=== PATIENT | male | born 1925 ===

== ENCOUNTER 2016-06-22 19:25 | Observation (INO) | payer MEDICARE, MEDICAID ==
[2016-06-22 19:25] VITALS: BMI 36.6
[2016-06-22] MEDS ORDERED: Nitroglycerin 2% 1GM UD TOP STA (19:48)
[2016-06-22] MEDS ORDERED: Nitroglycerin 2% 1GM UD ONE (20:03)
[2016-06-22 20:26] LABS: BASO % 0.6 % (0.0-2.0); EOS # 0.1 K/uL (0.0-0.7); EOS % 1.7 % (0.0-4.0); HEMATOCRIT 34.7 % (35.0-51.0); LYMPH # 1.5 K/uL (1.0-4.3); LYMPH % 17.8 % (20.0-40.0); MEAN CELL VOLUME 88.9 fl (80.0-94.0); MEAN CORPUSCULAR HEMOGLOBIN 29.2 pg (27.0-31.0); MEAN CORPUSCULAR HGB CONC 32.8 g/dL (33.0-37.0); MEAN PLATELET VOLUME 8.3 fl (7.2-11.7); MONO # 0.6 K/uL (0.0-0.8); MONO % 7.3 % (0.0-10.0); NEUT # 5.9 K/uL (1.8-7.0); NEUT % 72.6 % (50.0-75.0); RED CELL DISTRIBUTION WIDTH 16.5 % (11.5-14.5); WHITE BLOOD COUNT 8.2 K/uL (4.8-10.8)
[2016-06-22 20:39] LABS: ALB/GLOB RATIO 1.2 (1.0-2.1); ALKALINE PHOSPHATASE 113 U/L (38-126); ALT/SGPT 35 U/L (21-72); AST/SGOT 41 U/L (17-59); BILIRUBIN,TOTAL 0.3 mg/dl (0.2-1.3); BLOOD UREA NITROGEN 20 mg/dl (9-20); CALCIUM 8.9 mg/dL (8.4-10.2); CARBON DIOXIDE 25 mmol/L (22-30); CHLORIDE 103 mmol/L (98-107); GFR AFRICAN-AMERICAN > 60; GLUCOSE,RANDOM 241 mg/dL (75-110); POTASSIUM 3.9 MMOL/L (3.6-5.0); SODIUM 135 mmol/l (132-148); TOTAL PROTEIN 6.4 G/DL (6.3-8.2)
--- NOTE | 2016-06-22 21:16 | ED PDOC ---
HPI: Chest Pain Time Seen by Provider: 06/22/16 19:38 Chief Complaint (Nursing): Chest Pain Chief Complaint (Provider): Chest Pain History Per: Patient History/Exam Limitations: no limitations Onset/Duration Of Symptoms: Hrs (since earlier today) Current Symptoms Are (Timing): Still Present Severity: Moderate Associated Symptoms: Dyspnea (mild). denies: Nausea, Diaphoresis, Other (no fever, vomiting, palpitations, cough) Modifying Factors: None Additional Complaint(s): Kodi Melgar is an 89 year old male, with a past medical history inclusive of CAD (s/p MD and CABG x4 in 1993), atrial fibrillation, CHF, HTN, hypercholesterolemia, dyslipidemia, peripheral edema, pancreatitis, DVT and type II diabetes, who presents to the ED on 06/22/16, via EMS, for the evaluation of chest pain that he has experienced since earlier today. Associated mild shortness of breath also reported, though he denies any fever, palpitations, cough, nausea, vomiting or diaphoresis. Has medicated with Motrin , which he usually takes for chest pain as advised by his PMD, without relief. Of note, patient is well known to both this ED and this provider for multiple previous visits for similar complaints. PMD: Amado Davis Past Medical History Reviewed: Historical Data, Nursing Documentation, Vital Signs Vital Signs: Last Vital Signs Temp 98.1 F 06/22/16 19:28 Pulse 89 06/22/16 20:08 Resp 16 06/22/16 20:08 BP 128/62 06/22/16 20:08 Pulse Ox 100 06/23/16 00:50 - Medical History PMH: Anemia, Arthritis, Atrial Fibrillation, CAD, Cardia Arrhythmia, CHF, COPD, Dementia, Diabetes (type II ), Diverticulitis, Deep Vein Thrombosis, Gastritis, Gall Bladder Disease, HTN, Hypercholesterolemia, Hyperlipidemia, Hypothyroidism , Pancreatitis, Peripheral Edema, Pulmonary Embolism Denies: HIV, Chronic Kidney Disease, Rheumatoid Arthritis Other PMH: macular degeneration - Surgical History Surgical History: CABG (quadruple CABG in 1993) Other surgeries: angioplasty - Family History Family History: States: No Known Family Hx - Living Arrangements Living Arrangements: With Family (son) - Social History Current smoker - smoking cessation education provided: Yes (1-2 cigars/day) Alcohol: None Drugs: Denies - Home Medications Home Medications: Ambulatory Orders Medication Instructions Recorded Allopurinol 300 mg PO DAILY 01/09/15 Carvedilol [Coreg] 3.125 mg PO Q12H 12/09/15 Levothyroxine [Synthroid] 50 mcg PO DAILY #0 tab 12/09/15 Tamsulosin [Flomax] 0.4 mg PO BID #0 cap 12/09/15 Clopidogrel [Plavix] 75 mg PO DAILY 01/24/16 Dabigatran [Pradaxa] 150 mg PO BID 01/24/16 Dutasteride [Avodart] 0.5 mg PO DAILY 01/24/16 Losartan [Cozaar] 50 mg PO DAILY 01/24/16 Isosorbide Mononitrate [Imdur] 120 mg PO DAILY #0 tab 03/12/16 Linagliptin [Tradjenta] 5 mg PO DAILY #1 tab 03/20/16 Furosemide [Lasix] 40 mg PO DAILY tab 03/28/16 traMADol [Ultram] 50 mg PO Q4 PRN #40 tab 04/11/16 Albuterol Sulfate [Proair Hfa] 2 puff IH Q12H PRN 05/10/16 Omeprazole 40 mg PO DAILY 05/10/16 Simvastatin [Zocor] 40 mg PO HS 05/10/16 Tiotropium [Spiriva] 18 mcg IH DAILY 05/10/16 - Allergies Allergies/Adverse Reactions: Allergies Allergy/AdvReac Type Severity Reaction Status Date / Time No Known Allergies Allergy Verified 05/10/16 10:31 Review of Systems ROS Statement: Except As Marked, All Systems Reviewed And Found Negative Constitutional: Negative for: Fever, Sweats Cardiovascular: Positive for: Chest Pain. Negative for: Palpitations Respiratory: Positive for: Shortness of Breath. Negative for: Cough Gastrointestinal: Negative for: Nausea, Vomiting Physical Exam - Reviewed Nursing Documentation Reviewed: Yes Vital Signs Reviewed: Yes - Physical Exam Appears: Positive for: Non-toxic, No Acute Distress (laughing/joking) Head Exam: Positive for: ATRAUMATIC, NORMOCEPHALIC Skin: Positive for: Normal Color, Warm, Dry Eye Exam: Positive for: Normal appearance, PERRL ENT: Positive for: Normal ENT Inspection Neck: Positive for: Normal, Painless ROM, Supple Cardiovascular/Chest: Positive for: Regular Rate, Rhythm. Negative for: Edema, Murmur Respiratory: Positive for: Normal Breath Sounds. Negative for: Respiratory Distress Back: Positive for: Normal Inspection Extremity: Positive for: Normal ROM Neurologic/Psych: Positive for: Alert, Oriented - Laboratory Results Result Diagrams: 06/22/16 20:18 06/22/16 20:18 - ECG O2 Sat by Pulse Oximetry: 100 (RA) Pulse Ox Interpretation: Normal Medical Decision Making Medical Decision Makin:38 Initial Impression: 89 year old male with chest pain in setting of known CAD/A- Fib/HTN Initial plan: * EKG * CXR * Labs * BNP * Troponin I * PTT * PT * Accucheck * Aspirin 324mg pO * Nitro 1in TOP * Reevaluation 21:25 CXR shows no acute disease. Labs reviewed with no clinically significant abnormalities. Discussed case with Dr. Renner (Hospitalist), patient will be hospitalized overnight under his service within [facility] for chest pain observation. Plan has been discussed with patient, who is in agreement. Condition fair. Clinical Impression: chest pain Scribe Attestation: Documented by Cande Bagley, acting as a scribe for Irineo Hdez MD. Provider Scribe Attestation: All medical record entries made by the Scribe were at my direction and personally dictated by me. I have reviewed the chart and agree that the record accurately reflects my personal performance of the history, physical exam, medical decision making, and the department course for this patient. I have also personally directed, reviewed, and agree with the discharge instructions and disposition. Disposition - Clinical Impression Clinical Impression: Chest pain - Patient ED Disposition Is Patient to be Admitted: Yes - Disposition Disposition Time: 21:25 Condition: FAIR - Pt Status Changed To: Hospital Disposition Of: Observation - POA Present On Arrival: None
[2016-06-22] MEDS ORDERED: Albuterol HFA 90 mcg/actuation (8 g) INH PRN (22:11)
--- NOTE | 2016-06-22 22:17 | CP.PCM.HP ---
History of Present Illness - History of Present Illness History of Present Illness: 10 yr old M with PMhx of Chronic A-fib, Ischemic Cardiomyopathy, CAD s/p CABG 1993, DM II, CHF with EF=25-30% (echo 11/30/15), COPD, Pancreatitis, DVT/PE, Diverticulosis and Cholelithiasis with Chronic Cholecystitis, ERCP with stent placement and Hypothyroidism who presented to the ER earlier this evening with recurrent L sided mid sternal CP without radiation. He does have SOB, but appears to be at baseline. Denies cough/f/c/n/v/d. PCP: Dr. Yi Grid Trimmer: Jonatan Cooper MHx: Chronic A-fib, CAD s/p CABG 1993, DM II, Ischemic Cardiomyopathy/CHF with EF=25-30% (echo 11/30/15), COPD, DVT/PE, diverticulosis and hypothyroidism SHx: CABG 1993, Cholecystostomy s/p removal 02/13/16, ERCP with stent placement Allergies: NKDA Medications: As per med rec Family Hx: Reviewed, patient does not provide any relevant history Social Hx: Lives with family, no EtOH, no current tobacco Surrogate: , contact info in chart Present on Admission - Present on Admission Any Indicators Present on Admission: No Past Patient History - Infectious Disease Hx of Infectious Diseases: None - Tetanus Immunizations Tetanus Immunization: Unknown - Past Medical History & Family History Past Medical History?: Yes - Past Social History Alcohol: None Drugs: Denies - CARDIAC Hx Atrial Fibrillation: Yes Hx Cardia Arrhythmia: Yes Hx Congestive Heart Failure: Yes Hx Hypercholesterolemia: Yes Hx Hypertension: Yes Hx Peripheral Edema: Yes - PULMONARY Hx Chronic Obstructive Pulmonary Disease (COPD): Yes Hx Pulmonary Embolism: Yes - NEUROLOGICAL Hx Dementia: Yes - HEENT Hx HEENT Problems: Yes Hx Cataracts: Yes Other/Comment: hard of hearing - RENAL Hx Chronic Kidney Disease: No - ENDOCRINE/METABOLIC Hx Hypothyroidism: Yes - HEMATOLOGICAL/ONCOLOGICAL Hx Anemia: Yes Hx Human Immunodeficiency Virus (HIV): No - INTEGUMENTARY Hx Dermatological Problems: No - MUSCULOSKELETAL/RHEUMATOLOGICAL Hx Arthritis: Yes Hx Rheumatoid Arthritis: No - GASTROINTESTINAL Hx Diverticulitis: Yes Hx Gall Bladder Disease: Yes Hx Gastritis: Yes Hx Pancreatitis: Yes - GENITOURINARY/GYNECOLOGICAL Hx Genitourinary Disorders: Yes Hx Prostate Problems: Yes Other/Comment: BPH - PSYCHIATRIC Hx Substance Use: No - SURGICAL HISTORY Hx Coronary Artery Bypass Graft: Yes (quadruple CABG in 1993) - ANESTHESIA Hx Anesthesia: Yes Hx Anesthesia Reactions: No Hx Malignant Hyperthermia: No Meds Allergies/Adverse Reactions: Allergies Allergy/AdvReac Type Severity Reaction Status Date / Time No Known Allergies Allergy Verified 05/10/16 10:31 Physical Exam - Constitutional Appears: No Acute Distress, Chronically Ill - Head Exam Head Exam: ATRAUMATIC, NORMOCEPHALIC - Eye Exam Eye Exam: EOMI, PERRL - ENT Exam ENT Exam: Mucous Membranes Moist - Neck Exam Neck exam: Positive for: Full Rom Additional comments: No jvd noted - Respiratory Exam Respiratory Exam: Rhonchi, NORMAL BREATHING PATTERN - Cardiovascular Exam Cardiovascular Exam: REGULAR RHYTHM, +S1, +S2 Results - Vital Signs Recent Vital Signs: Last Vital Signs Temp 98.1 F 06/22/16 19:28 Pulse 98 H 06/22/16 19:28 Resp 16 06/22/16 19:28 BP 133/79 06/22/16 19:28 Pulse Ox 100 06/22/16 21:58 - Labs Result Diagrams: 06/22/16 20:18 06/22/16 20:18 - EKG Data EKG Interpreted by: Myself Rate: Normal - EKG Data EKG comments: RBBB, ?LAFB Assessment & Plan (1) Acute chest pain Assessment and Plan: 89 y/o male with multiple chronic conditions who comes in with CP. 1) Chest pain/CHF/A fib -Admit to tele -Serial trops -AM EKG -Cont ASA, Plavix, and Pradaxa -Continue LA nitro -Cardiology consult in AM 2) DM2 -- cont PO hypoglycemic, accucheck/SSI, DM2 diet 3) COPD -- cont spiriva, prn Albuterol 4) DVT PPx -- on pradaxa Status: Acute (2) DVT prophylaxis Status: Acute (3) Afib Status: Chronic (4) Chronic systolic CHF (congestive heart failure) Status: Chronic (5) COPD (chronic obstructive pulmonary disease) Status: Acute (6) DM2 (diabetes mellitus, type 2) Status: Chronic
[2016-06-23 06:40] LABS: BLOOD UREA NITROGEN 18 mg/dl (9-20); CALCIUM 9.2 mg/dL (8.4-10.2); CARBON DIOXIDE 21 mmol/L (22-30); CHLORIDE 106 mmol/L (98-107); GFR AFRICAN-AMERICAN > 60; GLUCOSE,RANDOM 111 mg/dL (75-110); POTASSIUM 3.9 MMOL/L (3.6-5.0); SODIUM 134 mmol/l (132-148)
[2016-06-23] MEDS: Insulin Lispro (humaLOG) 100 Units/ml Inj SC SCH ×3 (07:28→16:37)
[2016-06-23] MEDS ORDERED: Pantoprazole 40 mg EC Tab PO SCH (09:00)
[2016-06-23] MEDS ORDERED: Levothyroxine 50 MCG TAB PO SCH (09:00)
[2016-06-23] MEDS ORDERED: Tiotropium 18 mcg Cap For Inhalation IH SCH (09:00)
--- NOTE | 2016-06-23 10:40 | RAD ---
HISTORY: chest pain COMPARISON: 05/10/2016 FINDINGS: LUNGS: No focal infiltrate. PLEURA: No significant pleural effusion identified, no pneumothorax apparent. CARDIOVASCULAR: Heart is unchanged in size and mildly enlarged. There is stable appearance of the aorta. OSSEOUS STRUCTURES: There is evidence of prior median sternotomy. No rib fracture is seen. VISUALIZED UPPER ABDOMEN: Normal. OTHER FINDINGS: None. IMPRESSION: No active disease.
[2016-06-23 15:30] VITALS: TEMP 97.5
--- NOTE | 2016-06-23 16:16 | CP.PCM.DIS ---
Provider - Provider Date of Admission: 06/22/16 21:25 Attending physician: Bravo Renner MD Primary care physician: Dr Davis Time Spent in preparation of Discharge (in minutes): 30 Diagnosis - Discharge Diagnosis (1) Chest pain Status: Acute (2) Chronic systolic CHF (congestive heart failure) Status: Chronic (3) COPD (chronic obstructive pulmonary disease) Status: Chronic (4) Enlarged prostate Status: Chronic (5) Ischemic dilated cardiomyopathy Status: Chronic Priority: Medium (6) CAD (coronary artery disease) Status: Chronic (7) Chronic atrial fibrillation Status: Chronic (8) DM2 (diabetes mellitus, type 2) Status: Chronic (9) Gallbladder disease Status: Chronic (10) Hypothyroidism Status: Chronic Hospital Course - Lab Results Lab Results: Most Recent Lab Values WBC 8.2 K/uL (4.8-10.8) 06/22/16 20:18 RBC 3.91 Mil/uL (4.40-5.90) L 06/22/16 20:18 Hgb 11.4 g/dL (12.0-18.0) L 06/22/16 20:18 Hct 34.7 % (35.0-51.0) L 06/22/16 20:18 MCV 88.9 fl (80.0-94.0) 06/22/16 20:18 MCH 29.2 pg (27.0-31.0) 06/22/16 20:18 MCHC 32.8 g/dL (33.0-37.0) L 06/22/16 20:18 RDW 16.5 % (11.5-14.5) H 06/22/16 20:18 Plt Count 181 K/uL (130-400) 06/22/16 20:18 MPV 8.3 fl (7.2-11.7) 06/22/16 20:18 Neut % (Auto) 72.6 % (50.0-75.0) 06/22/16 20:18 Lymph % (Auto) 17.8 % (20.0-40.0) L 06/22/16 20:18 [place] % (Auto) 7.3 % (0.0-10.0) 06/22/16 20:18 Eos % (Auto) 1.7 % (0.0-4.0) 06/22/16 20:18 Baso % (Auto) 0.6 % (0.0-2.0) 06/22/16 20:18 Neut # 5.9 K/uL (1.8-7.0) 06/22/16 20:18 Lymph # 1.5 K/uL (1.0-4.3) 06/22/16 20:18 [place] # 0.6 K/uL (0.0-0.8) 06/22/16 20:18 Eos # 0.1 K/uL (0.0-0.7) 06/22/16 20:18 Baso # 0.0 K/uL (0.0-0.2) 06/22/16 20:18 PT 10.8 SECONDS (9.6-11.2) 06/22/16 20:18 INR 1.04 (0.92-1.08) 06/22/16 20:18 APTT 29.0 SECONDS (23.3-32.5) 06/22/16 20:18 Sodium 134 mmol/l (132-148) 06/23/16 06:21 Potassium 3.9 MMOL/L (3.6-5.0) 06/23/16 06:21 Chloride 106 mmol/L (98-107) 06/23/16 06:21 Carbon Dioxide 21 mmol/L (22-30) L 06/23/16 06:21 Anion Gap 11 (10-20) 06/23/16 06:21 BUN 18 mg/dl (9-20) 06/23/16 06:21 Creatinine 1.0 mg/dL (0.8-1.5) 06/23/16 06:21 Est GFR ( Amer) > 60 06/23/16 06:21 Est GFR (Non-Af Amer) > 60 06/23/16 06:21 POC Glucose (mg/dL) 148 mg/dL (65-110) H 06/23/16 12:05 Random Glucose 111 mg/dL (75-110) H 06/23/16 06:21 Calcium 9.2 mg/dL (8.4-10.2) 06/23/16 06:21 Total Bilirubin 0.3 mg/dl (0.2-1.3) 06/22/16 20:18 AST 41 U/L (17-59) 06/22/16 20:18 ALT 35 U/L (21-72) 06/22/16 20:18 Alkaline Phosphatase 113 U/L (38-126) 06/22/16 20:18 Troponin I 0.0380 ng/mL (0.00-0.120) 06/23/16 06:02 NT-Pro-B Natriuret Pep 409 pg/ml (0-900) 06/22/16 20:18 Total Protein 6.4 G/DL (6.3-8.2) 06/22/16 20:18 Albumin 3.4 g/dL (3.5-5.0) L 06/22/16 20:18 Globulin 2.9 gm/dL (2.2-3.9) 06/22/16 20:18 Albumin/Globulin Ratio 1.2 (1.0-2.1) 06/22/16 20:18 - Hospital Course Hospital Course: 89 y/o gent with hx of CAD s/p CABG, Ischemic Cardiomyopathy, Chronic A fib, HTN , DM, BPH and Chronic Cholecystitis came in because of substernal chest pain. Pt was observed in Telemetry. started on ASA, his home meds- BB, statin, ARB were continued. Pradaxa likewise continued. Ther was no acute EKG change. Troponin x 3 negative. Pt's Ceramic Design Engineer- Dr aDvis recommended d/c home and to ff up with him in the office for further cardiac work up luis daniel. 1. Chest Pain, ACS ruled out , further work up needed as outpatient no EKG change Troponin x 3 negative ASA, BB, ARB, statin started 2. Atrial Fibrillation, chronic , rate controlled Continue Pradaxa as anticoagulant cont Coreg 3. COPD , chronic continue Albuterol / Atrovent nebs prn, Spiriva CXR with no infiltrate 4. History of CAD s/p CABG Continue lipitor, Plavix cont BB, ARB, statin 5. Chronic CHF, systolic dysfunction, compensated Continue Coreg/ Lasix/ Imdur and ARB 6. DM II controlled accucheck with coverage Diabetic Diet cont Tradjenta 7. Hypothyroidism -on Synthroid Discharge Exam - Head Exam Head Exam: ATRAUMATIC, NORMAL INSPECTION, NORMOCEPHALIC - Eye Exam Eye Exam: EOMI, Normal appearance Pupil Exam: NORMAL ACCOMODATION - ENT Exam ENT Exam: Mucous Membranes Moist, Normal External Ear Exam - Neck Exam Neck exam: Full Rom - Respiratory Exam Respiratory Exam: NORMAL BREATHING PATTERN. absent: Respiratory Distress - Cardiovascular Exam Cardiovascular Exam: Irregular Rhythm, +S1, +S2 - GI/Abdominal Exam GI & Abdominal Exam: Normal Bowel Sounds, Soft. absent: Tenderness - Extremities Exam Extremities exam: normal capillary refill, pedal pulses present Additional comments: no pedal edema no calf tenderness - Back Exam Back exam: FULL ROM. absent: CVA tenderness (L), CVA tenderness (R) - Neurological Exam Neurological exam: Alert, CN II-XII Intact, Oriented x3, Reflexes Normal - Psychiatric Exam Psychiatric exam: Normal Affect, Normal Mood - Skin Skin Exam: Dry, Normal Color, Warm Discharge Plan - Discharge Medications Prescriptions: Dutasteride [Avodart] 0.5 mg PO DAILY #30 capsule - Follow Up Plan Condition: GOOD Disposition: HOME/ ROUTINE Additional Instructions: ff up with Dr Ryan cary for further cardiac work up Referrals: Jonatan Davis MD [Family Provider] - Clinical Quality Measures - CQM - Heart Failure Ejection Fraction: Less Than 40 % Left Ventricular Function to be assessed after discharge: Yes LINDSEY Inhibitor Prescribed: No Contraindication/Reason for not providing: Pt is on ARB Beta-Viktoriya Prescribed: Carvedilol Angiotensin II Receptor Viktoriya Prescribed: Yes AnticoagulationTherapy for Atrial Fibrillation/Atrialflutter: Yes Aldosterone Antagonist Prescribed: No Contraindication/Reason for not providing: low normal BP Hydralazine Nitrate Prescribed: No Contraindication/Reason for not providing: low normal BP Implantable Cardioverter Defibrillator Therapy: Yes Contraindication/Reason for not providing: rec ff up with Cardio for eval Cardiac Resynchronization Therapy Prescribed: No Contraindication/Reason for not providing: further cardiac work up asa outpt Will be discharged to: Home Follow Up Date (must be within 7 days from discharge): 06/25/16 Follow Up Time: 09:00 - Date & Time of Discharge Summary Date of Discharge Summary: 06/23/16
[2016-06-23 16:50] VITALS: BP 143/74; PULSE 73; RESP 18; O2SAT 100
--- NOTE | 2016-06-25 10:04 | CARD ---
APPROVED REPORT EKG Measurement Heart [id number] [place] [id number] <Conclusion> Sinus rhythm with premature atrial complexes with aberrant conduction Right bundle branch block Left anterior fascicular block Bifascicular block Abnormal ECG
== END 2016-06-23 18:18 | disposition home or self-care (01) ==
LOC: H.ER 19:25 → H.ERHOLD 21:25 → H.TEL 06-23 01:14
PROVIDERS: ADMIT Internal Medicine; ATTEND Internal Medicine
DX: R07.89 Other chest pain (principal); E03.9 Hypothyroidism, unspecified; E78.00 Pure hypercholesterolemia, unspecified; E78.5 Hyperlipidemia, unspecified; F03.90 Unspecified dementia, unspecified severity, without behavioral disturbance, psychotic disturbance, mood disturbance, and anxiety; F17.200 Nicotine dependence, unspecified, uncomplicated; H35.30 Unspecified macular degeneration; I11.0 Hypertensive heart disease with heart failure; I50.22 Chronic systolic (congestive) heart failure; I25.10 Atherosclerotic heart disease of native coronary artery without angina pectoris; I25.2 Old myocardial infarction; I25.5 Ischemic cardiomyopathy; I48.2 Chronic atrial fibrillation; J44.9 Chronic obstructive pulmonary disease, unspecified; K81.1 Chronic cholecystitis; N40.0 Benign prostatic hyperplasia without lower urinary tract symptoms; Z86.711 Personal history of pulmonary embolism; Z95.1 Presence of aortocoronary bypass graft; Z86.718 Personal history of other venous thrombosis and embolism; K29.70 Gastritis, unspecified, without bleeding
CPT/HCPCS: 36415; 71010; 80048; 80053; 82948; 83880; 84484; 85025; 85610; 85730; 99282; G0378

== ENCOUNTER 2016-06-27 22:56 | Inpatient (IN) | payer MEDICARE, MEDICAID ==
[2016-06-27 22:56] VITALS: BMI 36.6
[2016-06-27] MEDS ORDERED: Metoprolol 1 mg/ml Inj IVP STA (23:15)
--- NOTE | 2016-06-27 23:24 | ED PDOC ---
HPI: Chest Pain Time Seen by Provider: 06/27/16 23:04 Chief Complaint (Nursing): Chest Pain Chief Complaint (Provider): chest pain History Per: Patient History/Exam Limitations: no limitations Onset/Duration Of Symptoms: Hrs Current Symptoms Are (Timing): Still Present Additional Complaint(s): 89yo male presents to the ED for evaluation of chest pain since 1200. Chest pain is non-exertional and non-radiating associated with SOB. Took Motrin with no relief. Of note, patient was recently admitted for chest pain and is also confused as to what medications he is taking for his heart. States he is not missing any doses, but does not know what medications he takes. Past Medical History Reviewed: Historical Data, Nursing Documentation, Vital Signs Vital Signs: Last Vital Signs Temp 97.6 F 06/27/16 22:58 Pulse 98 H 06/27/16 22:58 Resp 24 06/27/16 22:58 BP 145/111 H 06/27/16 22:58 Pulse Ox 98 06/27/16 23:30 - Medical History PMH: Anemia, Arthritis, Atrial Fibrillation, CAD, Cardia Arrhythmia, CHF, COPD, Dementia, Diabetes (type II ), Diverticulitis, Deep Vein Thrombosis, Gastritis, Gall Bladder Disease, HTN, Hypercholesterolemia, Hyperlipidemia, Hypothyroidism , Pancreatitis, Peripheral Edema, Pulmonary Embolism Denies: HIV, Chronic Kidney Disease, Rheumatoid Arthritis - Surgical History Surgical History: CABG (quadruple CABG in 1993) - Family History Family History: States: No Known Family Hx - Home Medications Home Medications: Ambulatory Orders Medication Instructions Recorded Allopurinol 300 mg PO DAILY 01/09/15 Carvedilol [Coreg] 3.125 mg PO Q12H 12/09/15 Levothyroxine [Synthroid] 50 mcg PO DAILY #0 tab 12/09/15 Tamsulosin [Flomax] 0.4 mg PO BID #0 cap 12/09/15 Clopidogrel [Plavix] 75 mg PO DAILY 01/24/16 Dabigatran [Pradaxa] 150 mg PO BID 01/24/16 Losartan [Cozaar] 50 mg PO DAILY 01/24/16 Isosorbide Mononitrate [Imdur] 120 mg PO DAILY #0 tab 03/12/16 Linagliptin [Tradjenta] 5 mg PO DAILY #1 tab 03/20/16 Furosemide [Lasix] 40 mg PO DAILY tab 03/28/16 traMADol [Ultram] 50 mg PO Q4 PRN #40 tab 04/11/16 Albuterol Sulfate [Proair Hfa] 2 puff IH Q12H PRN 05/10/16 Omeprazole 40 mg PO DAILY 05/10/16 Simvastatin [Zocor] 40 mg PO HS 05/10/16 Tiotropium [Spiriva] 18 mcg IH DAILY 05/10/16 Dutasteride [Avodart] 0.5 mg PO DAILY #30 capsule 06/23/16 - Allergies Allergies/Adverse Reactions: Allergies Allergy/AdvReac Type Severity Reaction Status Date / Time No Known Allergies Allergy Verified 05/10/16 10:31 Review of Systems ROS Statement: Except As Marked, All Systems Reviewed And Found Negative Cardiovascular: Positive for: Chest Pain Respiratory: Positive for: Shortness of Breath Physical Exam - Reviewed Nursing Documentation Reviewed: Yes Vital Signs Reviewed: Yes - Physical Exam Appears: Positive for: Well, No Acute Distress Head Exam: Positive for: ATRAUMATIC, NORMAL INSPECTION, NORMOCEPHALIC Skin: Positive for: Normal Color, Warm, Dry Eye Exam: Positive for: Normal appearance, EOMI, PERRL ENT: Positive for: Normal ENT Inspection Neck: Positive for: Normal, Painless ROM, Supple Cardiovascular/Chest: Positive for: Irregularly Irregular. Negative for: Murmur Respiratory: Positive for: Crackles (mild scattered b/l ). Negative for: Wheezing, Respiratory Distress Gastrointestinal/Abdominal: Positive for: Normal Exam, Bowel Sounds, Soft. Negative for: Tenderness Back: Positive for: Normal Inspection. Negative for: L CVA Tenderness, R CVA Tenderness Extremity: Positive for: Normal ROM. Negative for: Deformity, Swelling Neurologic/Psych: Positive for: Alert, Oriented. Negative for: Motor/Sensory Deficits - Laboratory Results Result Diagrams: 06/27/16 23:30 06/27/16 23:30 - ECG ECG: Positive for: Interpreted By Me, Viewed By Me ECG Rhythm: Positive for: Atrial Fibrillation (w/ RVR at 120bpm, left axis deviation ), Right Bundle Branch Block O2 Sat by Pulse Oximetry: 98 Pulse Ox Interpretation: Normal (RA) Medical Decision Making Medical Decision Makin: Impression: AFib w/ RVR, r/o ACS Plan: Labs CXR EKG Metoprolol 5mg IVP reassess 0025 Pt. is successfully rate controlled, will admit for cardiac monitoring. Scribe Attestation: Documented by Reynaldo Mcnair acting as a scribe for Ehsan Kauffman MD. Provider Scribe Attestation: All medical record entries made by the Scribe were at my direction and personally dictated by me. I have reviewed the chart and agree that the record accurately reflects my personal performance of the history, physical exam, medical decision making, and the department course for this patient. I have also personally directed, reviewed, and agree with the discharge instructions and disposition. Disposition - Clinical Impression Clinical Impression: Atrial fibrillation with RVR, Chronic systolic CHF (congestive heart failure) - Disposition Disposition Time: 12:25 Condition: STABLE
[2016-06-27 23:36] LABS: BASO # 0.1 K/uL (0.0-0.2); BASO % 0.6 % (0.0-2.0); EOS # 0.2 K/uL (0.0-0.7); EOS % 1.7 % (0.0-4.0); HEMATOCRIT 39.2 % (35.0-51.0); LYMPH # 1.6 K/uL (1.0-4.3); LYMPH % 16.9 % (20.0-40.0); MEAN CELL VOLUME 89.6 fl (80.0-94.0); MEAN CORPUSCULAR HEMOGLOBIN 28.9 pg (27.0-31.0); MEAN CORPUSCULAR HGB CONC 32.3 g/dL (33.0-37.0); MEAN PLATELET VOLUME 8.6 fl (7.2-11.7); MONO # 0.7 K/uL (0.0-0.8); MONO % 7.2 % (0.0-10.0); NEUT # 6.9 K/uL (1.8-7.0); NEUT % 73.6 % (50.0-75.0); RED CELL DISTRIBUTION WIDTH 16.4 % (11.5-14.5); WHITE BLOOD COUNT 9.3 K/uL (4.8-10.8)
[2016-06-27 23:47] LABS: BLOOD UREA NITROGEN 14 mg/dl (9-20); CALCIUM 9.4 mg/dL (8.4-10.2); CARBON DIOXIDE 21 mmol/L (22-30); CHLORIDE 107 mmol/L (98-107); GFR AFRICAN-AMERICAN > 60; GLUCOSE,RANDOM 193 mg/dL (75-110); POTASSIUM 4.2 MMOL/L (3.6-5.0); SODIUM 135 mmol/l (132-148)
[2016-06-27 23:52] LABS: PARTIAL THROMBOPLASTIN TIME 44.2 SECONDS (23.3-32.5)
--- NOTE | 2016-06-27 23:53 | CP.PCM.HP ---
History of Present Illness - History of Present Illness History of Present Illness: 89 yr old M with PMhx of Chronic A-fib, Ischemic Cardiomyopathy, CAD s/p CABG 1993, DM II, CHF with EF=25-30% (echo 11/30/15), COPD, pancreatitis, DVT/PE, diverticulosis and cholelithiasis with chronic cholecystitis, ERCP with stent placement and hypothyroidism was admitted just this past week for workup of CP. He was discharged on 06/23, and was doing well until today when he developed CP, SOB, and palpitations around noon he states. He was found to have volume overload and A fib with RVR. Patient states he was taking meds he was Rx'ed, but he may be confused about some of them. States symptoms are improved now. Denies cough/f/c/n/v/d. PCP: Dr. Yi Children Librarian: Jonatan Cooper MHx: Chronic A-fib, CAD s/p CABG 1993, DM II, Ischemic Cardiomyopathy/CHF with EF=25-30% (echo 11/30/15), COPD, DVT/PE, diverticulosis and hypothyroidism SHx: CABG 1993, Cholecystostomy s/p removal 02/13/16, ERCP with stent placement Allergies: NKDA Medications: As per med rec Family Hx: Reviewed, patient does not provide any relevant history Social Hx: Lives with family, no EtOH, no current tobacco Surrogate: , contact info in chart Present on Admission - Present on Admission Any Indicators Present on Admission: No Past Patient History - Infectious Disease Hx of Infectious Diseases: None - Tetanus Immunizations Tetanus Immunization: Unknown - Past Medical History & Family History Past Medical History?: Yes - Past Social History Smoking Status: cigar - CARDIAC Hx Atrial Fibrillation: Yes Hx Cardia Arrhythmia: Yes Hx Congestive Heart Failure: Yes Hx Hypercholesterolemia: Yes Hx Hypertension: Yes Hx Peripheral Edema: Yes - PULMONARY Hx Chronic Obstructive Pulmonary Disease (COPD): Yes Hx Pulmonary Embolism: Yes - NEUROLOGICAL Hx Dementia: Yes - HEENT Other/Comment: hard of hearing - RENAL Hx Chronic Kidney Disease: No - ENDOCRINE/METABOLIC Hx Hypothyroidism: Yes - HEMATOLOGICAL/ONCOLOGICAL Hx Anemia: Yes Hx Human Immunodeficiency Virus (HIV): No - INTEGUMENTARY Hx Dermatological Problems: No - MUSCULOSKELETAL/RHEUMATOLOGICAL Hx Arthritis: Yes Hx Rheumatoid Arthritis: No - GASTROINTESTINAL Hx Diverticulitis: Yes Hx Gall Bladder Disease: Yes Hx Gastritis: Yes Hx Pancreatitis: Yes - GENITOURINARY/GYNECOLOGICAL Other/Comment: BPH - PSYCHIATRIC Hx Psychophysiologic Disorder: No - SURGICAL HISTORY Hx Coronary Artery Bypass Graft: Yes (quadruple CABG in 1993) - ANESTHESIA Hx Anesthesia: Yes Hx Anesthesia Reactions: No Hx Malignant Hyperthermia: No Meds Allergies/Adverse Reactions: Allergies Allergy/AdvReac Type Severity Reaction Status Date / Time No Known Allergies Allergy Verified 05/10/16 10:31 Physical Exam - Constitutional Appears: No Acute Distress - Head Exam Head Exam: ATRAUMATIC, NORMOCEPHALIC - Eye Exam Eye Exam: EOMI, PERRL - ENT Exam ENT Exam: Mucous Membranes Moist - Neck Exam Neck exam: Positive for: Full Rom Additional comments: No JVD noted - Respiratory Exam Respiratory Exam: NORMAL BREATHING PATTERN Additional comments: Dim b/s at bases - Cardiovascular Exam Cardiovascular Exam: Irregular Rhythm, +S1, +S2 - GI/Abdominal Exam GI & Abdominal Exam: Normal Bowel Sounds, Soft - Extremities Exam Extremities exam: Positive for: full ROM, pedal edema - Neurological Exam Neurological exam: Alert, CN II-XII Intact, Oriented x3 - Skin Skin Exam: Dry, Warm Results - Vital Signs Recent Vital Signs: Last Vital Signs Temp 97.6 F 06/27/16 22:58 Pulse 98 H 06/27/16 22:58 Resp 24 06/27/16 22:58 BP 145/111 H 06/27/16 22:58 Pulse Ox 98 06/27/16 23:30 - Labs Result Diagrams: 06/27/16 23:30 06/27/16 23:30 Labs: Laboratory Results - last 24 hr 06/27/16 23:30 WBC 9.3 RBC 4.37 L Hgb 12.6 Hct 39.2 MCV 89.6 MCH 28.9 MCHC 32.3 L RDW 16.4 H Plt Count 187 MPV 8.6 Neut % (Auto) 73.6 Lymph % (Auto) 16.9 L [place] % (Auto) 7.2 Eos % (Auto) 1.7 Baso % (Auto) 0.6 Neut # 6.9 Lymph # 1.6 [place] # 0.7 Eos # 0.2 Baso # 0.1 - EKG Data EKG Interpreted by: Myself Rate: Tachycardia - EKG Data EKG comments: A fib with RVR, RBBB - Imaging and Cardiology Chest x-ray Status: Image reviewed by me (appears to have some pulm congestion) Assessment & Plan (1) Acute chest pain Assessment and Plan: 89 y/o male with multiple chronic conditions who comes in again with CP, this time also with worse acute exac of systolic CHF, and A fib with RVR 1) Chest pain/CHF/A fib/CHF -Admit to tele -Serial trops -AM EKG -Cont Plavix, and Pradaxa -Continue LA nitro -Receiving Lasix 60 mg IV daily for now -Cardiology consult in AM 2) DM2 -- cont PO hypoglycemic, accucheck/SSI, DM2 diet 3) COPD -- cont spiriva, prn xopenex 4) DVT PPx -- on pradaxa Status: Acute (2) Atrial fibrillation with RVR Status: Acute (3) DVT (deep venous thrombosis) Status: Acute (4) HTN (hypertension) Status: Chronic Priority: High (5) DM2 (diabetes mellitus, type 2) Status: Chronic (6) Hypothyroidism Status: Chronic
[2016-06-28] MEDS ORDERED: Levalbuterol 1.25 MG/3 ML Inhal Soln UD INH PRN (00:32)
[2016-06-28] MEDS: Levothyroxine 50 MCG TAB PO SCH (06:15)
[2016-06-28] MEDS: Insulin Lispro (humaLOG) 100 Units/ml Inj SC SCH ×4 (07:01→22:37)
[2016-06-28 07:32] LABS: BLOOD UREA NITROGEN 14 mg/dl (9-20); CALCIUM 9.8 mg/dL (8.4-10.2); CARBON DIOXIDE 25 mmol/L (22-30); CHLORIDE 104 mmol/L (98-107); GFR AFRICAN-AMERICAN > 60; GLUCOSE,RANDOM 102 mg/dL (75-110); POTASSIUM 3.9 MMOL/L (3.6-5.0); SODIUM 138 mmol/l (132-148)
[2016-06-28 07:36] LABS: BASO % 0.3 % (0.0-2.0); EOS # 0.2 K/uL (0.0-0.7); EOS % 2.2 % (0.0-4.0); HEMATOCRIT 40.4 % (35.0-51.0); LYMPH % 21.4 % (20.0-40.0); MEAN CELL VOLUME 89.5 fl (80.0-94.0); MEAN CORPUSCULAR HEMOGLOBIN 29.2 pg (27.0-31.0); MEAN CORPUSCULAR HGB CONC 32.7 g/dL (33.0-37.0); MEAN PLATELET VOLUME 8.8 fl (7.2-11.7); MONO # 0.8 K/uL (0.0-0.8); MONO % 8.6 % (0.0-10.0); NEUT # 6.2 K/uL (1.8-7.0); NEUT % 67.5 % (50.0-75.0); RED CELL DISTRIBUTION WIDTH 16.5 % (11.5-14.5); WHITE BLOOD COUNT 9.2 K/uL (4.8-10.8)
[2016-06-28] MEDS ORDERED: Patient's Own Med (Linagliptin [Tradjenta] 5 MG) PO SCH (09:00)
[2016-06-28] MEDS: Pantoprazole 40 mg EC Tab PO SCH (09:44)
--- NOTE | 2016-06-28 11:25 | CP.PCM.PN ---
Subjective - Date & Time of Evaluation Date of Evaluation: 06/28/16 Time of Evaluation: 11:15 - Subjective Subjective: Hospitalist Progress Note (Patient was seen and examined at 11:15 AM 06/28/16 in 410-2) 89 year old male with an extensive medical history (Chronic Atrial Fibrillation , COPD, CHF, CAD S/P CABG, DM 2, Hypothyroidism, BPH, Chronic Cholecystitis/ Pancreatitis with ERCP Stent Placment, DVT/PE) presented to [facility] ER on the night of 06/27/16 with complaints of SOB, Chest Pain, and Palpitations. He was found to have elevated heart rate and to be fluid overloaded. He was admitted for CHF Exacerbation, Chronic A-Fib with RVR, and for further evaluation of the Chest Pain. Please note that the patient was recently admitted to this institution on 06/22/16 for complaints of chest pain, was found to have negative troponins, and was then discharged on 06/23/16. At the time of my exam, patient wanted to go back home but I explained to him that the Troponin was elevated, that his lungs had some fluid in them, and that he needed to be evaluated by his Database Security Administrator Dr. Davis who was consulted. Currently upon FULL ROS No more complaints of chest pain, NO SOB, NO Palpitations. NO Cough/Wheezing, NO dysphagia/odynophagia, NO abdominal pain, NO n/v/d/c (had a normal bowel movement this morning), NO burning/pain with urination although finds it hard to start the stream at times, NO lightheadedness/dizziness, NO headaches, NO new changes in vision/eye pain, NO new changes in hearing/ear pain, NO edema, NO paresthesias. HEENT: NCA, EOMI, PERRLA, NO cervical lymphadenopathy, NO thyromegaly, NO pharyngeal erythema/exudate, Oral Mucosa and Nasal Turbinates are moist Cardiology: Irregularly Irregular Respiratory: CTA B/L, NO R/R/W GI: BS x 4, Soft, NT, ND, NO HSM, NO guarding/rebound tenderness Ext: Pulses are strong and equal, Capillary refill is 2 seconds, NO edema, Vericose Veins bilateral lower legs Neuro: CN II through XII are grossly intact Assessment and Plan: 1). Chest Pain Troponin elevated at 0.172 Patient already on Pradaxa and Plavix Could this be secondary to the A-fib with RVR on presentation and/or CHF Exacerbation? Await further recommendations from Cardiology Dr. Davis 2). Systolic HF Exacerbation Chest X Ray showed Pulmonary Vascular Congestion and Cardiomegaly ProBNP increased from 409 on 06/22/16 to 1600 06/27/16 Lasix 60 mg IV 1x/day Coreg 3.125 mg PO Q12H Losartan 50 mg PO 1x/day Last 2D Echocardiogram November 2015 showed EF estimated at 25-30% 3). Chronic Atrial Fibrillation with RVR on presentation EKG upon presentation showed Atrial Fibrillation with rate at 120 Coreg 3.125 mg PO Q12H Pradaxa 150 mg PO 2x/day Currently rate controlled 4). Hx COPD Spiriva 18 mcg INH 1x/day Xopenex 1.25 mg INH Q8H PRN SOB/Wheezing 5). Hx CAD S/P CABG Coreg 3.125 mg PO Q12H Losartan 50 mg PO 1x/day Isosorbide Mononitrate 120 mg PO 1x/day Lipitor 20mg PO QHS Plavix 75 mg PO 1x/day 6). Hx DM 2 Januvia 100 mg PO 1x/day Lispro ISS with Accuchecks 7). Hx Hypothyroidism Levothyroxine 50 mcg PO 1x/day 8). Hx BPH Avodart 0.5 mg PO 1x/day Flomax 0.4 mg PO 2x/day 9). Prophylactic Measures Protonix 40 mg PO 1x/day for GI prophylaxis Patient already on Pradaxa Tylenol 650 mg PO Q6H PRN Mild Pain Tramadol 50 mg PO Q4H PRN Moderate Pain Allopurinol 300 mg PO 1x/day Charlie Nelson D.O. Objective - Vital Signs/Intake and Output Vital Signs (last 24 hours): Temp Pulse Resp BP Pulse Ox 97.7 F 78 20 131/72 100 06/28/16 09:00 06/28/16 09:44 06/28/16 09:00 06/28/16 09:46 06/28/16 09:00 - Medications Medications: Current Medications Acetaminophen (Tylenol 325mg Tab) 650 mg PO Q6 PRN PRN Reason: Pain, Mild (1-3) Allopurinol (Zyloprim) 300 mg PO DAILY [facility] Atorvastatin Calcium (Lipitor) 20 mg PO HS DIANA Carvedilol (Coreg) 3.125 mg PO Q12H DIANA Last Admin: 06/28/16 01:00 Dose: 3.125 mg Clopidogrel Bisulfate (Plavix) 75 mg PO DAILY [facility] Last Admin: 06/28/16 09:45 Dose: 75 mg Dabigatran (Pradaxa) 150 mg PO BID [facility] PRN Reason: Protocol Last Admin: 06/28/16 09:43 Dose: 150 mg Furosemide (Lasix) 60 mg IV DAILY [facility] Last Admin: 06/28/16 09:46 Dose: 60 mg Home Med (Dutasteride [Avodart]) 0.5 mg PO DAILY [facility] Insulin Human Lispro (Humalog) 0 units SC ACHS [facility] PRN Reason: Protocol Last Admin: 06/28/16 07:01 Dose: Not Given Isosorbide Mononitrate (Imdur) 120 mg PO DAILY [facility] Last Admin: 06/28/16 09:45 Dose: 120 mg Levalbuterol HCl (Xopenex) 1.25 mg INH RQ8 PRN PRN Reason: Shortness of Breath Levothyroxine Sodium (Synthroid) 50 mcg PO DAILY@0630 [facility] Last Admin: 06/28/16 06:15 Dose: 50 mcg Losartan Potassium (Cozaar) 50 mg PO DAILY [facility] Last Admin: 06/28/16 09:44 Dose: 50 mg Pantoprazole Sodium (Protonix Ec Tab) 40 mg PO DAILY [facility] Last Admin: 06/28/16 09:44 Dose: 40 mg Sitagliptin Phosphate (Januvia) 100 mg PO DAILY [facility] Last Admin: 06/28/16 09:44 Dose: 100 mg Tamsulosin HCl (Flomax) 0.4 mg PO BID [facility] Last Admin: 06/28/16 09:45 Dose: 0.4 mg Tiotropium [place] (Spiriva) 18 mcg IH DAILY [facility] Tramadol HCl (Ultram) 50 mg PO Q4 PRN PRN Reason: Pain, moderate (4-7) - Labs Labs: 06/28/16 06:45 06/28/16 06:45 PT 12.4 SECONDS (9.6-11.2) H 06/27/16 23:30 INR 1.19 (0.92-1.08) H 06/27/16 23:30 APTT 44.2 SECONDS (23.3-32.5) H 06/27/16 23:30
[2016-06-28] MEDS: Tiotropium 18 mcg Cap For Inhalation IH SCH (12:32)
--- NOTE | 2016-06-28 13:27 | RAD ---
PROCEDURE: CHEST RADIOGRAPH, 1 VIEW HISTORY: Chest pain and shortness of breath COMPARISON: 06/22/2016 FINDINGS: LUNGS: There is pulmonary venous congestion and prominent central vasculature. There is no focal consolidation. PLEURA: No pneumothorax or pleural fluid seen. CARDIOVASCULAR: There is mild cardiomegaly. Status post CABG. Atherosclerotic aortic arch calcifications are present. . OSSEOUS STRUCTURES: There is degenerative osteoarthrosis in both glenohumeral joints. VISUALIZED UPPER ABDOMEN: Normal. OTHER FINDINGS: None. IMPRESSION: No active pulmonary disease. Cardiomegaly and mild pulmonary venous congestion.
--- NOTE | 2016-06-28 18:51 | CP.PCM.CON ---
History of Present Illness - History of Present Illness History of Present Illness: 89 yo male with ischemic cardiomyopathy , severe LV dysfunction, chronic afib, refused AICD evaluation with c/o of cp and mild CHF. Currently cp free and mild Troponin elevation. Ambulating in room comfortable with no c/o of sob. Past Patient History - Infectious Disease Hx of Infectious Diseases: None - Tetanus Immunizations Tetanus Immunization: Unknown - Past Medical History & Family History Past Medical History?: Yes - Past Social History Smoking Status: Current Some Days Smoker - CARDIAC Hx Cardiac Disorders: Yes - PULMONARY Hx Respiratory Disorders: Yes - NEUROLOGICAL Hx Neurological Disorder: Yes - HEENT Hx HEENT Problems: No - RENAL Hx Chronic Kidney Disease: No - ENDOCRINE/METABOLIC Hx Endocrine Disorders: No - HEMATOLOGICAL/ONCOLOGICAL Hx Blood Disorders: Yes - INTEGUMENTARY Hx Dermatological Problems: No - MUSCULOSKELETAL/RHEUMATOLOGICAL Hx Musculoskeletal Disorders: Yes - GASTROINTESTINAL Hx Gastrointestinal Disorders: Yes Hx Diverticulitis: Yes Hx Gall Bladder Disease: Yes Hx Gastritis: Yes Hx Pancreatitis: Yes - GENITOURINARY/GYNECOLOGICAL Hx Genitourinary Disorders: Yes - PSYCHIATRIC Hx Psychophysiologic Disorder: No - SURGICAL HISTORY Hx Surgeries: Yes Hx Cholecystectomy: Yes Hx Coronary Artery Bypass Graft: Yes (quadruple CABG in 1993) - ANESTHESIA Hx Anesthesia: Yes Hx Anesthesia Reactions: No Hx Malignant Hyperthermia: No Meds Allergies/Adverse Reactions: Allergies Allergy/AdvReac Type Severity Reaction Status Date / Time No Known Allergies Allergy Verified 05/10/16 10:31 - Medications Medications: Current Medications Acetaminophen (Tylenol 325mg Tab) 650 mg PO Q6 PRN PRN Reason: Pain, Mild (1-3) Allopurinol (Zyloprim) 300 mg PO DAILY [facility] Last Admin: 06/28/16 16:26 Dose: 300 mg Atorvastatin Calcium (Lipitor) 20 mg PO HS [facility] Carvedilol (Coreg) 3.125 mg PO Q12H [facility] Last Admin: 06/28/16 12:39 Dose: 3.125 mg Clopidogrel Bisulfate (Plavix) 75 mg PO DAILY [facility] Last Admin: 06/28/16 09:45 Dose: 75 mg Dabigatran (Pradaxa) 150 mg PO BID [facility] PRN Reason: Protocol Last Admin: 06/28/16 16:25 Dose: 150 mg Furosemide (Lasix) 60 mg IV DAILY [facility] Last Admin: 06/28/16 09:46 Dose: 60 mg Home Med (Dutasteride [Avodart]) 0.5 mg PO DAILY [facility] Insulin Human Lispro (Humalog) 0 units SC ACHS [facility] PRN Reason: Protocol Last Admin: 06/28/16 16:26 Dose: Not Given Isosorbide Mononitrate (Imdur) 120 mg PO DAILY [facility] Last Admin: 06/28/16 09:45 Dose: 120 mg Levalbuterol HCl (Xopenex) 1.25 mg INH RQ8 PRN PRN Reason: Shortness of Breath Levothyroxine Sodium (Synthroid) 50 mcg PO DAILY@0630 [facility] Last Admin: 06/28/16 06:15 Dose: 50 mcg Losartan Potassium (Cozaar) 50 mg PO DAILY [facility] Last Admin: 06/28/16 09:44 Dose: 50 mg Pantoprazole Sodium (Protonix Ec Tab) 40 mg PO DAILY [facility] Last Admin: 06/28/16 09:44 Dose: 40 mg Sitagliptin Phosphate (Januvia) 100 mg PO DAILY [facility] Last Admin: 06/28/16 09:44 Dose: 100 mg Tamsulosin HCl (Flomax) 0.4 mg PO BID [facility] Last Admin: 06/28/16 17:18 Dose: 0.4 mg Tiotropium [place] (Spiriva) 18 mcg IH DAILY [facility] Last Admin: 06/28/16 12:32 Dose: 18 mcg Tramadol HCl (Ultram) 50 mg PO Q4 PRN PRN Reason: Pain, moderate (4-7) Physical Exam - Neck Exam Neck exam: Positive for: Normal Inspection - Respiratory Exam Respiratory Exam: Clear to Auscultation Bilateral - Cardiovascular Exam Cardiovascular Exam: Irregular Rhythm - GI/Abdominal Exam GI & Abdominal Exam: Normal Bowel Sounds - Extremities Exam Extremities exam: Positive for: normal inspection Results - Vital Signs Recent Vital Signs: Last Vital Signs Temp 97.5 F L 06/28/16 17:00 Pulse 87 06/28/16 17:00 Resp 20 06/28/16 17:00 BP 152/57 H 06/28/16 17:00 Pulse Ox 100 06/28/16 17:00 - Labs Result Diagrams: 06/28/16 06:45 06/28/16 06:45 Labs: Laboratory Results - last 24 hr 06/28/16 06/28/16 05:43 06:45 WBC 9.2 RBC 4.52 Hgb 13.2 Hct 40.4 MCV 89.5 MCH 29.2 MCHC 32.7 L RDW 16.5 H Plt Count 201 MPV 8.8 Neut % (Auto) 67.5 Lymph % (Auto) 21.4 [place] % (Auto) 8.6 Eos % (Auto) 2.2 Baso % (Auto) 0.3 Neut # 6.2 Lymph # 2.0 [place] # 0.8 Eos # 0.2 Baso # 0.0 Sodium 138 Potassium 3.9 Chloride 104 Carbon Dioxide 25 Anion Gap 12 BUN 14 Creatinine 0.9 Est GFR ( Amer) > 60 Est GFR (Non-Af Amer) > 60 POC Glucose (mg/dL) 122 H Random Glucose 102 Calcium 9.8 Troponin I 0.1720 H* Assessment & Plan - Assessment and Plan (Free Text) Assessment: #1 CHF Ischemic cardiomyopathy: ? issues related to medication compliance. Agree with IV Lasix 60mg qd. Mild Troponin elevation most likely from CHF. EKG unavailable for review on EMR. Pt appears stable can dc in 1-2 days with adjustment of outpt diuretic regimen ( takes Lasix 40mg at home) / 60mg to 80mg as outpt #2 Elevated Glucose: discussed with pt importance of Gluc control does not want insulin for glucose
[2016-06-29] MEDS: Levothyroxine 50 MCG TAB PO SCH (06:16)
[2016-06-29 07:20] LABS: ALB/GLOB RATIO 1.2 (1.0-2.1); ALKALINE PHOSPHATASE 84 U/L (38-126); ALT/SGPT 31 U/L (21-72); AST/SGOT 31 U/L (17-59); BILIRUBIN,TOTAL 0.4 mg/dl (0.2-1.3); BLOOD UREA NITROGEN 18 mg/dl (9-20); CALCIUM 9.3 mg/dL (8.4-10.2); CARBON DIOXIDE 27 mmol/L (22-30); CHLORIDE 102 mmol/L (98-107); GFR AFRICAN-AMERICAN > 60; GLUCOSE,RANDOM 114 mg/dL (75-110); MAGNESIUM 1.8 MG/DL (1.6-2.3); PHOSPHOROUS 3.9 mg/dl (2.5-4.5); SODIUM 138 mmol/l (132-148); TOTAL PROTEIN 6.3 G/DL (6.3-8.2)
[2016-06-29 07:27] LABS: HEMATOCRIT 35.4 % (35.0-51.0); MEAN CELL VOLUME 88.4 fl (80.0-94.0); MEAN CORPUSCULAR HEMOGLOBIN 29.6 pg (27.0-31.0); MEAN CORPUSCULAR HGB CONC 33.5 g/dL (33.0-37.0); RED CELL DISTRIBUTION WIDTH 16.2 % (11.5-14.5)
[2016-06-29 08:16] VITALS: BP 116/63; RESP 20; TEMP 97.6
[2016-06-29] MEDS: Insulin Lispro (humaLOG) 100 Units/ml Inj SC SCH (09:14)
[2016-06-29] MEDS: Pantoprazole 40 mg EC Tab PO SCH (09:17)
[2016-06-29] MEDS: Tiotropium 18 mcg Cap For Inhalation IH SCH (09:18)
[2016-06-29 10:52] VITALS: PULSE 74; O2SAT 96
--- NOTE | 2016-06-29 12:30 | CP.PCM.DIS ---
Provider - Provider Date of Admission: 06/28/16 21:35 Attending physician: Bravo Renner MD Primary care physician: Dr. Kd Le Consults: Cardiology consult with Dr. baig Time Spent in preparation of Discharge (in minutes): 20 Hospital Course - Lab Results Lab Results: Most Recent Lab Values WBC 9.0 K/uL (4.8-10.8) 06/29/16 06:25 RBC 4.00 Mil/uL (4.40-5.90) L 06/29/16 06:25 Hgb 11.8 g/dL (12.0-18.0) L 06/29/16 06:25 Hct 35.4 % (35.0-51.0) 06/29/16 06:25 MCV 88.4 fl (80.0-94.0) 06/29/16 06:25 MCH 29.6 pg (27.0-31.0) 06/29/16 06:25 MCHC 33.5 g/dL (33.0-37.0) 06/29/16 06:25 RDW 16.2 % (11.5-14.5) H 06/29/16 06:25 Plt Count 174 K/uL (130-400) 06/29/16 06:25 MPV 8.8 fl (7.2-11.7) 06/28/16 06:45 Neut % (Auto) 67.5 % (50.0-75.0) 06/28/16 06:45 Lymph % (Auto) 21.4 % (20.0-40.0) 06/28/16 06:45 [place] % (Auto) 8.6 % (0.0-10.0) 06/28/16 06:45 Eos % (Auto) 2.2 % (0.0-4.0) 06/28/16 06:45 Baso % (Auto) 0.3 % (0.0-2.0) 06/28/16 06:45 Neut # 6.2 K/uL (1.8-7.0) 06/28/16 06:45 Lymph # 2.0 K/uL (1.0-4.3) 06/28/16 06:45 [place] # 0.8 K/uL (0.0-0.8) 06/28/16 06:45 Eos # 0.2 K/uL (0.0-0.7) 06/28/16 06:45 Baso # 0.0 K/uL (0.0-0.2) 06/28/16 06:45 PT 12.4 SECONDS (9.6-11.2) H 06/27/16 23:30 INR 1.19 (0.92-1.08) H 06/27/16 23:30 APTT 44.2 SECONDS (23.3-32.5) H 06/27/16 23:30 Sodium 138 mmol/l (132-148) 06/29/16 06:30 Potassium 4.0 MMOL/L (3.6-5.0) 06/29/16 06:30 Chloride 102 mmol/L (98-107) 06/29/16 06:30 Carbon Dioxide 27 mmol/L (22-30) 06/29/16 06:30 Anion Gap 13 (10-20) 06/29/16 06:30 BUN 18 mg/dl (9-20) 06/29/16 06:30 Creatinine 1.1 mg/dL (0.8-1.5) 06/29/16 06:30 Est GFR ( Amer) > 60 06/29/16 06:30 Est GFR (Non-Af Amer) > 60 06/29/16 06:30 POC Glucose (mg/dL) 145 mg/dL (65-110) H 06/28/16 21:51 Random Glucose 114 mg/dL (75-110) H 06/29/16 06:30 Calcium 9.3 mg/dL (8.4-10.2) 06/29/16 06:30 Phosphorus 3.9 mg/dl (2.5-4.5) 06/29/16 06:30 Magnesium 1.8 MG/DL (1.6-2.3) 06/29/16 06:30 Total Bilirubin 0.4 mg/dl (0.2-1.3) 06/29/16 06:30 AST 31 U/L (17-59) 06/29/16 06:30 ALT 31 U/L (21-72) 06/29/16 06:30 Alkaline Phosphatase 84 U/L (38-126) 06/29/16 06:30 Troponin I 0.0960 ng/mL (0.00-0.120) 06/28/16 18:30 NT-Pro-B Natriuret Pep 1600 pg/ml (0-900) H 06/27/16 23:30 Total Protein 6.3 G/DL (6.3-8.2) 06/29/16 06:30 Albumin 3.4 g/dL (3.5-5.0) L 06/29/16 06:30 Globulin 2.9 gm/dL (2.2-3.9) 06/29/16 06:30 Albumin/Globulin Ratio 1.2 (1.0-2.1) 06/29/16 06:30 - Hospital Course Hospital Course: 89 yr old Male with PMhx of Chronic A-fib, Ischemic Cardiomyopathy with EF 25- 30 % , CAD s/p CABG 1993, , COPD, pancreatitis, DVT/PE, diverticulosis and cholelithiasis with chronic cholecystitis, s/p ERCP with stent placement and hypothyroidism was admitted just this past week for workup of CP. He was discharged on 06/23, and was doing well until today when he developed CP, SOB, and palpitations around noon He was found to have volume overload and A fib with RVR. Patient states he was taking meds he was Rx'ed, but he may be confused about some of them. States symptoms are improved now. He was placed under observation in telemetry . Started on 60 mg IV lasix and diuresed well with improvement of his respiratory status. Media Analytics Manager Dr. Baig was consulted. Patient optimized in medical management with Lasix, BB, Statin, pradaxa plavix , losartan . His chest pain and shortness of breath resolved , his HR is rate controlled but still in afib in monitor. Patient is hemodynamically stable and will be discharged home. Advised to be compliant with his medications. Increased Lasix to 60 mg PO daily . Follow up with Dr. Baig in 1week 1.Chest Pain with elevated troponin 0.172 Most likely not new ischemic event and troponin elevation related to Afivb with RVR and CHF exacerbation Cardiology cosnulted Continue medical management with Bb, losartan, Plavix, statin 2.Systolic HF Exacerbation Last 2D Echocardiogram November 2015 showed EF estimated at 25-30% Chest X Ray showed Pulmonary Vascular Congestion and Cardiomegaly ProBNP increased from 409 on 06/22/16 to 1600 06/27/16 increased lasix to 60 mg Continue Lasix 6, coreg, losartan , plavix As per cardiology patient had refused AICD placement 3. Chronic Atrial Fibrillation with RVR on presentation EKG upon presentation showed Atrial Fibrillation with rate at 120 At present rate controlled Continue coreg and Pradaxa 4. Hx COPD stable Spiriva 18 mcg INH 1x/day Xopenex 1.25 mg INH Q8H PRN SOB/Wheezing 5. Hx CAD S/P CABG Continue medical management 6.DM 2 controlled Continue harpreet emeds 7.Hypothyroidism on Levothyroxine 8. BPH Continue Avodart and flomax 9. Cholelithiasis with history of cholecystitis asymptomatic Discharge Exam - Head Exam Head Exam: ATRAUMATIC, NORMOCEPHALIC - Eye Exam Eye Exam: EOMI, Normal appearance - ENT Exam ENT Exam: Mucous Membranes Moist, Normal Exam - Neck Exam Neck exam: Full Rom, Normal Inspection - Respiratory Exam Respiratory Exam: Prolonged Expiratory Phase, Rales (bibasilar ). absent: Wheezes, Respiratory Distress - Cardiovascular Exam Cardiovascular Exam: Irregular Rhythm. absent: JVD - GI/Abdominal Exam GI & Abdominal Exam: Normal Bowel Sounds, Soft. absent: Distended, Guarding, Rebound - Rectal Exam Rectal Exam: Deferred - Extremities Exam Extremities exam: normal inspection, pedal pulses present - Back Exam Back exam: NORMAL INSPECTION - Neurological Exam Neurological exam: Alert, CN II-XII Intact, Oriented x3 - Psychiatric Exam Psychiatric exam: Normal Affect - Skin Skin Exam: Dry, Normal Color, Pallor Discharge Plan - Discharge Medications Prescriptions: Dutasteride [Avodart] 0.5 mg PO DAILY #30 capsule Carvedilol [Coreg] 3.125 mg PO Q12H #60 tab Losartan [Cozaar] 50 mg PO DAILY #30 tab Tamsulosin [Flomax] 0.4 mg PO BID #60 cap Isosorbide Mononitrate [Imdur] 120 mg PO DAILY #30 tab Furosemide [Lasix] 60 mg PO DAILY 30 Days Clopidogrel [Plavix] 75 mg PO DAILY #30 tab Dabigatran [Pradaxa] 150 mg PO BID #60 cap Tiotropium [Spiriva] 18 mcg IH DAILY #1 cap Levothyroxine [Synthroid] 50 mcg PO DAILY #30 tab - Follow Up Plan Condition: STABLE Disposition: HOME/ ROUTINE Patient education suggested?: Yes Instructions: Heart Failure (DC) Additional Instructions: follow up with your primary care doctor and with your cardiolgist dr joel baig. return to emergency room for shortness of breath or chest pain. Referrals: Joel Baig MD [Staff Provider] - Clinical Quality Measures - CQM - Heart Failure Ejection Fraction: Less Than 40 % Left Ventricular Function to be assessed after discharge: No LINDSEY Inhibitor Prescribed: Yes Beta-Viktoriya Prescribed: Carvedilol AnticoagulationTherapy for Atrial Fibrillation/Atrialflutter: Yes Will be discharged to: Home Follow Up Date (must be within 7 days from discharge): 07/06/16 Follow Up Time: 09:00 - Date & Time of Discharge Summary Date of Discharge Summary: 06/29/16
== END 2016-06-29 14:30 | disposition home or self-care (01) | DRG 308 ==
LOC: H.ER 22:56 → H.ERHOLD 06-28 00:32 → H.TEL 06-28 01:58 → OBSVTOIN 06-28 21:35
PROVIDERS: ADMIT Internal Medicine; ATTEND Internal Medicine
DX: I48.2 Chronic atrial fibrillation (principal); I50.23 Acute on chronic systolic (congestive) heart failure; K80.10 Calculus of gallbladder with chronic cholecystitis without obstruction; F03.90 Unspecified dementia, unspecified severity, without behavioral disturbance, psychotic disturbance, mood disturbance, and anxiety; J44.9 Chronic obstructive pulmonary disease, unspecified; E11.9 Type 2 diabetes mellitus without complications; D64.9 Anemia, unspecified; E03.9 Hypothyroidism, unspecified; I11.0 Hypertensive heart disease with heart failure; I25.5 Ischemic cardiomyopathy; I25.10 Atherosclerotic heart disease of native coronary artery without angina pectoris; E78.00 Pure hypercholesterolemia, unspecified; E78.5 Hyperlipidemia, unspecified; N40.0 Benign prostatic hyperplasia without lower urinary tract symptoms; Z86.711 Personal history of pulmonary embolism; Z95.1 Presence of aortocoronary bypass graft; Z86.718 Personal history of other venous thrombosis and embolism; M19.90 Unspecified osteoarthritis, unspecified site; K29.70 Gastritis, unspecified, without bleeding

== ENCOUNTER 2016-07-12 05:20 | Observation (INO) | payer MEDICARE, MEDICAID ==
[2016-07-12 05:20] VITALS: BMI 36.6
--- NOTE | 2016-07-12 06:15 | ED PDOC ---
HPI: Chest Pain Time Seen by Provider: 07/12/16 05:25 Chief Complaint (Nursing): Chest Pain Chief Complaint (Provider): Chest pain History Per: Patient History/Exam Limitations: no limitations Onset/Duration Of Symptoms: Mins Current Symptoms Are (Timing): Gone Now Associated Symptoms: denies: Nausea, Diaphoresis Additional Complaint(s): Patient is an 89 year old male, who has a history of CHF, presents to the ED complaining of mid-sternal chest pain x30 minutes ago. Upon arrival to ED, pain has resolved. Patient is well known to provider for multiple visits for similar presentation. Denies nausea, vomiting, diarrhea, or shortness of breath. PMD: none Past Medical History Reviewed: Historical Data, Nursing Documentation, Vital Signs Vital Signs: Last Vital Signs Temp 98 F 07/12/16 05:36 Pulse 86 07/12/16 06:04 Resp 16 07/12/16 06:04 BP 161/85 H 07/12/16 06:04 Pulse Ox 96 07/12/16 06:29 - Medical History PMH: Anemia, Arthritis, Atrial Fibrillation, CAD, Cardia Arrhythmia, CHF, COPD, Dementia, Diabetes (type II ), Diverticulitis, Deep Vein Thrombosis, Gastritis, Gall Bladder Disease, HTN, Hypercholesterolemia, Hyperlipidemia, Hypothyroidism , Pancreatitis, Peripheral Edema, Pulmonary Embolism Denies: HIV, Chronic Kidney Disease, Rheumatoid Arthritis - Surgical History Surgical History: CABG (quadruple CABG in 1993), Cholecystectomy - Family History Family History: States: No Known Family Hx - Social History Current smoker - smoking cessation education provided: Yes (cigars daily) - Home Medications Home Medications: Ambulatory Orders Medication Instructions Recorded Allopurinol 300 mg PO DAILY 01/09/15 Linagliptin [Tradjenta] 5 mg PO DAILY #1 tab 03/20/16 traMADol [Ultram] 50 mg PO Q4 PRN #40 tab 04/11/16 Albuterol Sulfate [Proair Hfa] 2 puff IH Q12H PRN 05/10/16 Omeprazole 40 mg PO DAILY 05/10/16 Simvastatin [Zocor] 40 mg PO HS 05/10/16 Carvedilol [Coreg] 3.125 mg PO Q12H #60 tab 06/29/16 Clopidogrel [Plavix] 75 mg PO DAILY #30 tab 06/29/16 Dabigatran [Pradaxa] 150 mg PO BID #60 cap 03/24/17 Dutasteride [Avodart] 0.5 mg PO DAILY #30 capsule 06/29/16 Furosemide [Lasix] 60 mg PO DAILY 30 Days 06/29/16 Isosorbide Mononitrate [Imdur] 120 mg PO DAILY #30 tab 06/29/16 Levothyroxine [Synthroid] 50 mcg PO DAILY #30 tab 06/29/16 Losartan [Cozaar] 50 mg PO DAILY #30 tab 06/29/16 Tamsulosin [Flomax] 0.4 mg PO BID #60 cap 06/29/16 Tiotropium [Spiriva] 18 mcg IH DAILY #1 cap 06/29/16 - Allergies Allergies/Adverse Reactions: Allergies Allergy/AdvReac Type Severity Reaction Status Date / Time No Known Allergies Allergy Verified 05/10/16 10:31 Review of Systems ROS Statement: Except As Marked, All Systems Reviewed And Found Negative Cardiovascular: Negative for: Chest Pain (resolved) Respiratory: Negative for: Shortness of Breath Gastrointestinal: Negative for: Nausea, Vomiting, Diarrhea Physical Exam - Reviewed Nursing Documentation Reviewed: Yes Vital Signs Reviewed: Yes - Physical Exam Appears: Positive for: Well, Non-toxic, No Acute Distress Head Exam: Positive for: ATRAUMATIC, NORMAL INSPECTION, NORMOCEPHALIC Skin: Positive for: Normal Color, Warm, DRY Eye Exam: Positive for: Normal appearance, EOMI Neck: Positive for: Normal, Painless ROM Cardiovascular/Chest: Positive for: Regular Rate, Rhythm. Negative for: Gallop , Murmur Respiratory: Positive for: Normal Breath Sounds. Negative for: Accessory Muscle Use, Rhonchi, Respiratory Distress Extremity: Positive for: Normal ROM Neurologic/Psych: Positive for: Alert, Oriented - Laboratory Results Result Diagrams: 07/12/16 06:15 - ECG O2 Sat by Pulse Oximetry: 96 (RA) Pulse Ox Interpretation: Normal Medical Decision Making Medical Decision Making: Time: 5:25 Impression: 89 y/o male with resolved chest pain Plan: EKG B-Type Natriuretic Peptide CMP Troponin CBC PTT/PT CXR 7;00 patient signed out to Dr. agosto. Pending labs Scribe Attestation: Documented by Nj Dowd acting as a scribe for Irineo Hdez MD. Scribe Attestation: All medical record entries made by the Scribe were at my direction and personally dictated by me. I have reviewed the chart and agree that the record accurately reflects my personal performance of the history, physical exam, medical decision making, and the department course for this patient. I have also personally directed, reviewed, and agree with the discharge instructions and disposition. Disposition - Clinical Impression Clinical Impression: Chest pain - Patient ED Disposition Is Patient to be Admitted: Transfer of Care - Disposition Disposition: Transfer of Care Disposition Time: 07:00 Condition: FAIR Patient Signed Over To: Amanda Agosto
[2016-07-12 06:44] LABS: BASO % 0.5 % (0.0-2.0); EOS # 0.2 K/uL (0.0-0.7); EOS % 2.2 % (0.0-4.0); HEMATOCRIT 34.6 % (35.0-51.0); LYMPH # 1.6 K/uL (1.0-4.3); LYMPH % 19.5 % (20.0-40.0); MEAN CELL VOLUME 89.1 fl (80.0-94.0); MEAN CORPUSCULAR HGB CONC 33.7 g/dL (33.0-37.0); MEAN PLATELET VOLUME 8.6 fl (7.2-11.7); MONO # 0.6 K/uL (0.0-0.8); MONO % 7.7 % (0.0-10.0); NEUT # 5.8 K/uL (1.8-7.0); NEUT % 70.1 % (50.0-75.0); NRBC % 0.1 % (0.0-0.0); RED CELL DISTRIBUTION WIDTH 16.2 % (11.5-14.5); WHITE BLOOD COUNT 8.2 K/uL (4.8-10.8)
--- NOTE | 2016-07-12 07:06 | ED PDOC ---
- Laboratory Results Result Diagrams: 07/12/16 06:15 07/12/16 06:15 - ECG O2 Sat by Pulse Oximetry: 96 (RA) - Radiology X-Ray: Interpreted by Me, Viewed By Me X-Ray Interpretation: No Acute Disease Medical Decision Making Medical Decision Making: Time: 0700 Patient signed out by Dr. Hdez pending labs Discussed with Dr Davis who agrees that patient is stable for discharge to follow up with him in the office in 2 days. Trop n2 is uptrending. Discussed with Dr Nelson for admission. Scribe Attestation: Documented by Shaina Bailon acting as a scribe for Surendra Patel MD MD Scribe Attestation: All medical record entries made by the Scribe were at my direction and personally dictated by me. I have reviewed the chart and agree that the record accurately reflects my personal performance of the history, physical exam, medical decision making, and the department course for this patient. I have also personally directed, reviewed, and agree with the discharge instructions and disposition. Disposition Counseled Patient/Family Regarding: Studies Performed, Diagnosis - Clinical Impression Clinical Impression: Chest pain - POA Present On Arrival: None Core Measure Indicators: Chest Pain - Disposition Disposition: Hospitalized as Observation Patient Disposition Time: 13:22 Condition: GOOD
[2016-07-12 07:11] LABS: PARTIAL THROMBOPLASTIN TIME 46.2 SECONDS (23.3-32.5)
[2016-07-12 07:26] LABS: ALB/GLOB RATIO 1.1 (1.0-2.1); ALKALINE PHOSPHATASE 138 U/L (38-126); ALT/SGPT 36 U/L (21-72); AST/SGOT 38 U/L (17-59); BILIRUBIN,TOTAL 0.8 mg/dl (0.2-1.3); BLOOD UREA NITROGEN 25 mg/dl (9-20); CALCIUM 9.4 mg/dL (8.4-10.2); CARBON DIOXIDE 23 mmol/L (22-30); CHLORIDE 105 mmol/L (98-107); GFR AFRICAN-AMERICAN > 60; GLUCOSE,RANDOM 143 mg/dL (75-110); POTASSIUM 3.9 MMOL/L (3.6-5.0); SODIUM 141 mmol/l (132-148); TOTAL PROTEIN 6.4 G/DL (6.3-8.2)
[2016-07-12 08:50] VITALS: BP 140/72; PULSE 76; RESP 18; TEMP 98.7
--- NOTE | 2016-07-12 09:39 | RAD ---
HISTORY: chest pain COMPARISON: 06/27/2016 FINDINGS: LUNGS: No active pulmonary disease. PLEURA: No significant pleural effusion identified, no pneumothorax apparent. CARDIOVASCULAR: Normal. OSSEOUS STRUCTURES: No significant abnormalities. VISUALIZED UPPER ABDOMEN: Normal. OTHER FINDINGS: None. IMPRESSION: No active disease.
[2016-07-12 13:22] VITALS: O2SAT 96
--- NOTE | 2016-07-12 15:34 | CP.PCM.CON ---
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 He was cleared for discharge to home from the ER with follow up with Dr. 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 Reynaldo Davis. His first troponin was negative at 0.04 and second troponin was also negative at .1 but due to slight increase, there was concern. I was asked to admit this patient by the ER Physician. However, EKG shows NSR @ 84 with PAC, Chest X Ray shows no acute pathology, PrOBNP < 900, and patient is chest pain free. He has no complaints upon FULL ROS (NO chest pain, NO palpitations, NO SOB /Cough/Wheezing, NO abdominal pain, NO n/v/d/c, NO black or bloody stools, NO lightheadedness/dizziness, NO headaches, NO new changes in vision/eye pain, NO new changes in hearing/ear pain, NO edema, NO numbness/tingling radiating to either UE/neck/jaw, NO diaphoresis). HEENT, Cardia, Respiratory, GI, Ext (vericose veins), Neur Exams are all unremarkable. I spoke with Dr. Davis and patient is ok to be discharged from his standpoint and follow up with him in 2 days. I spoke with the patient and he states that he has all of his medications at home and does not need any prescriptions. Patient understands to follow up with Dr. Davis this Saturday. Charlie Nelson D.O. Past Patient History - Infectious Disease Hx of Infectious Diseases: None - Tetanus Immunizations Tetanus Immunization: Unknown - Past Medical History & Family History Past Medical History?: Yes - Past Social History Smoking Status: Current Some Days Smoker - CARDIAC Hx Atrial Fibrillation: Yes Hx Cardia Arrhythmia: Yes Hx Congestive Heart Failure: Yes Hx Hypercholesterolemia: Yes Hx Hypertension: Yes Hx Peripheral Edema: Yes - PULMONARY Hx Chronic Obstructive Pulmonary Disease (COPD): Yes Hx Pulmonary Embolism: Yes - NEUROLOGICAL Hx Dementia: Yes - HEENT Hx HEENT Problems: No - RENAL Hx Chronic Kidney Disease: No - ENDOCRINE/METABOLIC Hx Hypothyroidism: Yes - HEMATOLOGICAL/ONCOLOGICAL Hx Anemia: Yes Hx Human Immunodeficiency Virus (HIV): No - INTEGUMENTARY Hx Dermatological Problems: No - MUSCULOSKELETAL/RHEUMATOLOGICAL Hx Arthritis: Yes Hx Rheumatoid Arthritis: No - GASTROINTESTINAL Hx Diverticulitis: Yes Hx Gall Bladder Disease: Yes Hx Gastritis: Yes Hx Pancreatitis: Yes - GENITOURINARY/GYNECOLOGICAL Hx Genitourinary Disorders: Yes - PSYCHIATRIC Hx Psychophysiologic Disorder: No Hx Substance Use: No - SURGICAL HISTORY Hx Cholecystectomy: Yes Hx Coronary Artery Bypass Graft: Yes (quadruple CABG in 1993) - ANESTHESIA Hx Anesthesia: Yes Hx Anesthesia Reactions: No Hx Malignant Hyperthermia: No Meds Allergies/Adverse Reactions: Allergies Allergy/AdvReac Type Severity Reaction Status Date / Time No Known Allergies Allergy Verified 05/10/16 10:31 Results - Vital Signs Recent Vital Signs: Last Vital Signs Temp 98.7 F 07/12/16 08:49 Pulse 76 07/12/16 08:49 Resp 18 07/12/16 08:49 BP 140/72 07/12/16 08:49 Pulse Ox 96 07/12/16 13:22 - Labs Result Diagrams: 07/12/16 06:15 07/12/16 06:15 Labs: Laboratory Results - last 24 hr 07/12/16 13:03 Troponin I 0.1010
--- NOTE | 2016-07-12 19:05 | CARD ---
APPROVED REPORT EKG Measurement Heart [id number] MI [id number] [id number] <Conclusion> Sinus rhythm with premature atrial complexes Left axis deviation Right bundle branch block Abnormal ECG
== END 2016-07-12 15:48 | disposition home or self-care (01) ==
LOC: H.ER 05:20 → UNDOADMOB 08:13 → H.ERHOLD 08:13 → H.EROBSV 09:00 → UNDODISOB 13:19 → H.ERHOLD 13:58
PROVIDERS: ADMIT Family Medicine; ATTEND Family Medicine
DX: R07.9 Chest pain, unspecified (principal); I25.10 Atherosclerotic heart disease of native coronary artery without angina pectoris; I25.5 Ischemic cardiomyopathy; I48.2 Chronic atrial fibrillation; E11.9 Type 2 diabetes mellitus without complications; E03.9 Hypothyroidism, unspecified; E78.00 Pure hypercholesterolemia, unspecified; F03.90 Unspecified dementia, unspecified severity, without behavioral disturbance, psychotic disturbance, mood disturbance, and anxiety; I11.0 Hypertensive heart disease with heart failure; I50.9 Heart failure, unspecified; J44.9 Chronic obstructive pulmonary disease, unspecified; Z95.1 Presence of aortocoronary bypass graft; Z86.711 Personal history of pulmonary embolism; Z87.891 Personal history of nicotine dependence
CPT/HCPCS: 71010; 80053; 82948; 83880; 84484; 85025; 85610; 85730; 93005; 99283; G0378

== ENCOUNTER 2016-09-18 01:30 | Observation (INO) | payer MEDICARE, MEDICAID ==
[2016-09-18 01:30] VITALS: BMI 36.6
[2016-09-18 03:13] LABS: BASO % 0.3 % (0.0-2.0); EOS # 0.1 K/uL (0.0-0.7); EOS % 0.8 % (0.0-4.0); HEMATOCRIT 35.7 % (35.0-51.0); MEAN CELL VOLUME 91.1 fl (80.0-94.0); MEAN CORPUSCULAR HEMOGLOBIN 30.7 pg (27.0-31.0); MEAN CORPUSCULAR HGB CONC 33.7 g/dL (33.0-37.0); MEAN PLATELET VOLUME 8.4 fl (7.2-11.7); MONO # 0.6 K/uL (0.0-0.8); MONO % 4.6 % (0.0-10.0); NEUT # 10.6 K/uL (1.8-7.0); NEUT % 86.3 % (50.0-75.0); NRBC % 0.1 % (0.0-0.0); PLATELET COUNT 195 K/uL (130-400); RED CELL DISTRIBUTION WIDTH 16.2 % (11.5-14.5); WHITE BLOOD COUNT 12.3 K/uL (4.8-10.8)
[2016-09-18 03:20] LABS: RBC URINE 1 /hpf (0-3); URINE BILIRUBIN NEGATIVE (NEGATIVE); URINE BLOOD NEGATIVE (NEGATIVE); URINE COLOR STRAW (YELLOW); URINE GLUCOSE (UA) 50 mg/dL (Normal); URINE KETONE NEGATIVE (NEGATIVE); URINE LEUKOCYTE ESTERASE NEG Leu/uL (Negative); URINE PROTEIN 30 mg/dL (NEGATIVE); URINE UROBILINOGEN 0.2-1.0 mg/dL (0.2-1.0); WBC URINE < 1 /hpf (0-5)
[2016-09-18 03:23] LABS: CHLORIDE 104 mmol/L (98-107)
[2016-09-18 03:24] LABS: POTASSIUM 4.1 MMOL/L (3.6-5.0); SODIUM 137 mmol/l (132-148)
[2016-09-18 03:26] LABS: GFR AFRICAN-AMERICAN > 60
--- NOTE | 2016-09-18 03:26 | ED PDOC ---
HPI: Chest Pain Time Seen by Provider: 09/18/16 01:46 Chief Complaint (Nursing): Chest Pain Chief Complaint (Provider): Chest Pain History Per: Patient History/Exam Limitations: no limitations Onset/Duration Of Symptoms: Mins (x30 min) Current Symptoms Are (Timing): Gone Now Context: Other (Drinking water while sitting) Associated Symptoms: denies: Dyspnea Nitro Therapy Administered: 3, Per EMS, Complete Relief Additional Complaint(s): 89 year old male presents to ED with complaints of chest pain x30 mins [employer] and has an extensive past medical history including but not limited to cardiac disorders, DM (Type II), gastrointestinal disorders, and respiratory disorders. States that he was drinking water while sitting at time of onset Describes the pain as located substernally and non-radiating. Notes that he took ASA with no improvement, and took another ASA (324mg) and 3 SL nitros in EMS. Confirms that the pain subsided after the SL nitros. (-) SOB. PCP: Jonatan Davis Past Medical History Reviewed: Historical Data, Nursing Documentation, Vital Signs Vital Signs: Last Vital Signs Temp 97.8 F 09/18/16 05:55 Pulse 85 09/18/16 05:55 Resp 20 09/18/16 05:55 BP 140/65 09/18/16 05:55 Pulse Ox 98 09/18/16 06:01 - Medical History PMH: Anemia, Arthritis, Atrial Fibrillation, CAD, Cardia Arrhythmia, CHF, COPD, Dementia, Diabetes (type II ), Diverticulitis, Deep Vein Thrombosis, Gastritis, Gall Bladder Disease, HTN, Hypercholesterolemia, Hyperlipidemia, Hypothyroidism , Pancreatitis, Peripheral Edema, Pulmonary Embolism Denies: HIV, Chronic Kidney Disease, Rheumatoid Arthritis - Surgical History Surgical History: CABG (quadruple CABG in 1993), Cholecystectomy - Family History Family History: States: Unknown Family Hx - Home Medications Home Medications: Ambulatory Orders Medication Instructions Recorded Allopurinol 300 mg PO DAILY 01/09/15 Linagliptin [Tradjenta] 5 mg PO DAILY #1 tab 03/20/16 Albuterol Sulfate [Proair Hfa] 2 puff IH Q12H PRN 05/10/16 Carvedilol [Coreg] 3.125 mg PO Q12H #60 tab 06/29/16 Clopidogrel [Plavix] 75 mg PO DAILY #30 tab 06/29/16 Dabigatran [Pradaxa] 150 mg PO BID #60 cap 06/29/16 Dutasteride [Avodart] 0.5 mg PO DAILY #30 capsule 06/29/16 Levothyroxine [Synthroid] 50 mcg PO DAILY #30 tab 06/29/16 Losartan [Cozaar] 50 mg PO DAILY #30 tab 06/29/16 Tamsulosin [Flomax] 0.4 mg PO BID #60 cap 06/29/16 Tiotropium [Spiriva] 18 mcg IH DAILY #1 cap 06/29/16 Furosemide [Lasix] 40 mg PO DAILY 09/18/16 Isosorbide Mononitrate [Imdur] 30 mg PO DAILY 09/18/16 Isosorbide Mononitrate [Imdur] 60 mg PO DAILY 09/18/16 - Allergies Allergies/Adverse Reactions: Allergies Allergy/AdvReac Type Severity Reaction Status Date / Time No Known Allergies Allergy Verified 05/10/16 10:31 MARI Risk Score for UA/NSTEMI - MARI Risk Score Age > 64: YES 3 or more CAD Risk Factors: YES Known CAD (Stenosis greater than 50%): YES Aspirin use in past 7 days: YES MARI Score: 4 Risk %: 20% Curb-65 Severity Score - CURB-65 Severity Score Respiratory Rate greater than/equal to 30: No Systolic BP <90 or Diastolic BP less than/equal 60mmHg: No Age >64: Yes Curb-65 Score: 1 Percentage 30-day mortality: 2.7% Wells Criteria for PE - Wells Criteria for Pulmonary Embolism P.E is #1 Diagnosis, or Equally Likely: No Heart Rate >100: No Hemoptysis: No Total Score: 0 Review of Systems ROS Statement: Except As Marked, All Systems Reviewed And Found Negative Cardiovascular: Positive for: Chest Pain Respiratory: Negative for: Shortness of Breath Physical Exam - Reviewed Nursing Documentation Reviewed: Yes Vital Signs Reviewed: Yes - Physical Exam Appears: Positive for: Non-toxic Skin: Positive for: Normal Color, Warm, Dry Eye Exam: Positive for: Normal appearance ENT: Positive for: Normal ENT Inspection Neck: Positive for: Normal Cardiovascular/Chest: Positive for: Regular Rate, Rhythm. Negative for: Murmur Respiratory: Positive for: Crackles (Dry cackles in bilateral bases). Negative for: Normal Breath Sounds, Respiratory Distress Gastrointestinal/Abdominal: Positive for: Normal Exam (Obese abdomen) Back: Positive for: Normal Inspection Extremity: Positive for: Normal ROM, Swelling (1+ pitting edema in bilateral knees). Negative for: Deformity Neurologic/Psych: Positive for: Alert, Oriented. Negative for: Motor/Sensory Deficits - Laboratory Results Result Diagrams: 09/18/16 02:45 09/18/16 02:45 - ECG O2 Sat by Pulse Oximetry: 98 (RA) Pulse Ox Interpretation: Normal Medical Decision Making Medical Decision Makin Initial impression: R/O ACS Initial plan: * EKG * Labs * UDrug screen * Trop I * PTT/PT * CXR * UA 345: Pt. w/ trop of 0.1, EKG bifasicular block. Given that patient had improvement of symptoms after administration of nitro, will continue to monitor patient in telemetry obs. ASA given via EMS. Scribe Attestation: Documented by Teri Link acting as a scribe for Ehsan Kauffman MD. Scribe Attestation: All medical record entries made by the Scribe were at my direction and personally dictated by me. I have reviewed the chart and agree that the record accurately reflects my personal performance of the history, physical exam, medical decision making, and the department course for this patient. I have also personally directed, reviewed, and agree with the discharge instructions and disposition. Disposition - Clinical Impression Clinical Impression: Chest pain - Disposition Disposition Time: 03:45 Condition: STABLE
[2016-09-18 03:27] LABS: BLOOD UREA NITROGEN 21 mg/dl (9-20); CALCIUM 9.6 mg/dL (8.4-10.2); CARBON DIOXIDE 24 mmol/L (22-30); GLUCOSE,RANDOM 199 mg/dL (75-110)
[2016-09-18 03:30] LABS: PARTIAL THROMBOPLASTIN TIME 65.1 Seconds (25.6-37.1)
[2016-09-18 05:04] LABS: EOSINOPHIL 1 % (0-7); NEUTROPHIL 89 % (42-75); TOTAL CELLS COUNTED 100
[2016-09-18] MEDS ORDERED: Albuterol HFA 90 mcg/actuation (8 g) IH PRN (06:32)
[2016-09-18] MEDS ORDERED: Tiotropium 18 mcg Cap For Inhalation IH SCH (09:00)
[2016-09-18] MEDS ORDERED: Levothyroxine 50 MCG TAB PO SCH (09:00)
[2016-09-18] MEDS: Insulin Lispro (humaLOG) 100 Units/ml Inj SC SCH ×2 (09:25→09:52)
[2016-09-18 09:34] VITALS: BP 147/70; PULSE 76
[2016-09-18 09:40] VITALS: RESP 20; TEMP 97.7; O2SAT 99
--- NOTE | 2016-09-18 10:40 | CP.PCM.CON ---
History of Present Illness - History of Present Illness History of Present Illness: 89 yo male with PMH CABG ischemic Cardiomyopathy, afib, hypertension, c/o of epigastric chest discomfort. Troponin is negative , EKG RBBB no ischemic changes. Pt is resting comfortably with no c/o. BNP is elevated due to LV dysfunction and age. Past Patient History - Infectious Disease Hx of Infectious Diseases: None - Tetanus Immunizations Tetanus Immunization: Unknown - Past Medical History & Family History Past Medical History?: Yes - Past Social History Smoking Status: Current Some Days Smoker - CARDIAC Hx Atrial Fibrillation: Yes Hx Cardia Arrhythmia: Yes Hx Congestive Heart Failure: Yes Hx Hypercholesterolemia: Yes Hx Hypertension: Yes Hx Peripheral Edema: Yes - PULMONARY Hx Chronic Obstructive Pulmonary Disease (COPD): Yes Hx Pulmonary Embolism: Yes - NEUROLOGICAL Hx Dementia: Yes - HEENT Hx HEENT Problems: No - RENAL Hx Chronic Kidney Disease: No - ENDOCRINE/METABOLIC Hx Hypothyroidism: Yes - HEMATOLOGICAL/ONCOLOGICAL Hx Anemia: Yes Hx Human Immunodeficiency Virus (HIV): No - INTEGUMENTARY Hx Dermatological Problems: No - MUSCULOSKELETAL/RHEUMATOLOGICAL Hx Arthritis: Yes Hx Rheumatoid Arthritis: No - GASTROINTESTINAL Hx Diverticulitis: Yes Hx Gall Bladder Disease: Yes Hx Gastritis: Yes Hx Pancreatitis: Yes - GENITOURINARY/GYNECOLOGICAL Hx Genitourinary Disorders: Yes - PSYCHIATRIC Hx Substance Use: No - SURGICAL HISTORY Hx Cholecystectomy: Yes Hx Coronary Artery Bypass Graft: Yes (quadruple CABG in 1993) - ANESTHESIA Hx Anesthesia: Yes Hx Anesthesia Reactions: No Hx Malignant Hyperthermia: No Meds Allergies/Adverse Reactions: Allergies Allergy/AdvReac Type Severity Reaction Status Date / Time No Known Allergies Allergy Verified 05/10/16 10:31 - Medications Medications: Current Medications Albuterol (Ventolin Hfa 90 Mcg/Actuation (8 G)) 2 puff IH Q12H PRN PRN Reason: Shortness of Breath Allopurinol (Zyloprim) 300 mg PO DAILY [facility] Last Admin: 09/18/16 09:28 Dose: 300 mg Carvedilol (Coreg) 3.125 mg PO Q12H [facility] Last Admin: 09/18/16 09:24 Dose: 3.125 mg Clopidogrel Bisulfate (Plavix) 75 mg PO DAILY [facility] Last Admin: 09/18/16 09:28 Dose: 75 mg Dabigatran (Pradaxa) 150 mg PO BID [facility] PRN Reason: Protocol Last Admin: 09/18/16 10:16 Dose: 150 mg Furosemide (Lasix) 40 mg PO DAILY [facility] Last Admin: 09/18/16 09:28 Dose: 40 mg Home Med (Dutasteride [Avodart]) 0.5 mg PO DAILY [facility] Insulin Human Lispro (Humalog) 0 units SC ACHS [facility] PRN Reason: Protocol Last Admin: 09/18/16 09:52 Dose: Not Given Isosorbide Mononitrate (Imdur) 30 mg PO DAILY [facility] Last Admin: 09/18/16 09:28 Dose: 30 mg Levothyroxine Sodium (Synthroid) 50 mcg PO ACB [facility] Losartan Potassium (Cozaar) 50 mg PO DAILY [facility] Last Admin: 09/18/16 09:24 Dose: 50 mg Sitagliptin Phosphate (Januvia) 50 mg PO DAILY [facility] Last Admin: 09/18/16 10:16 Dose: 50 mg Tamsulosin HCl (Flomax) 0.4 mg PO BID [facility] Last Admin: 09/18/16 09:25 Dose: 0.4 mg Tiotropium [place] (Spiriva) 18 mcg IH DAILY [facility] Last Admin: 09/18/16 09:29 Dose: 18 mcg Physical Exam - Head Exam Head Exam: NORMAL INSPECTION - Neck Exam Neck exam: Positive for: Normal Inspection - Respiratory Exam Respiratory Exam: Decreased Breath Sounds - Cardiovascular Exam Cardiovascular Exam: REGULAR RHYTHM - GI/Abdominal Exam GI & Abdominal Exam: Normal Bowel Sounds - Extremities Exam Extremities exam: Positive for: normal inspection Results - Vital Signs Recent Vital Signs: Last Vital Signs Temp 97.7 F 09/18/16 09:00 Pulse 76 09/18/16 09:24 Resp 20 09/18/16 09:00 BP 147/70 09/18/16 09:28 Pulse Ox 99 09/18/16 09:00 - Labs Result Diagrams: 09/18/16 02:45 09/18/16 02:45 Labs: Laboratory Results - last 24 hr 09/18/16 06:31 POC Glucose (mg/dL) 174 H Assessment & Plan - Assessment and Plan (Free Text) Assessment: Non-cardiac chest pain in patient with known CAD, CHF, Afib, htn , Dm2. Troponin is negative , EKG RBBB no acute change Plan: Pt can be Dc'd today f/u as outpt in my office 1 wk
--- NOTE | 2016-09-18 10:50 | RAD ---
HISTORY: chest pain COMPARISON: Comparison is made to 07/12/2016 TECHNIQUE: Chest PA and lateral FINDINGS: LUNGS: No active pulmonary disease. PLEURA: No significant pleural effusion identified. No pneumothorax apparent. CARDIOVASCULAR: Normal. OSSEOUS STRUCTURES: No significant abnormalities. VISUALIZED UPPER ABDOMEN: Normal. OTHER FINDINGS: None. IMPRESSION: No active disease.
--- NOTE | 2016-09-18 13:42 | CARD ---
APPROVED REPORT EKG Measurement Heart [id number] NM [id number] <Conclusion> Normal sinus rhythm with sinus arrhythmia Right bundle branch block Left anterior fascicular block Bifascicular block Left ventricular hypertrophy with repolarization abnormality Abnormal ECG
--- NOTE | 2016-09-19 00:03 | HP ---
HISTORY OF PRESENT ILLNESS: This is an 89-year-old man who has history of multiple medical problems, including coronary artery disease, hypothyroidism, type 2 diabetes mellitus, pulmonary hypertension. He presented to Emergency Room with symptoms of chest pain. The patient was treated with aspirin a s well as nitrate in the Emergency Room and admitted for further management. The patient had cardiol ogrichard, Dr. Davis, who has seen the patient also on the morning of the day of admission. The patient den ied to have any cough or productive expectoration. Positive symptoms of shortness of breath. REVIEW OF SYSTEMS: Other review of systems negative. ALLERGIES: No known allergy. HOME MEDICATIONS: Imdur 60 mg daily, Lasix 20 mg daily, Plavix 75 mg daily, Coreg 3.125 mg every 12 hours, allopurinol 300 mg daily, Avodart 0.5 mg daily, Pradaxa 150 mg twice a day, levothyroxine 50 m cg daily, losartan 50 mg daily, Tradjenta 5 mg daily, Flomax 0.4 mg twice a day, Spiriva 1 capsule to inhale daily. PAST MEDICAL HISTORY: COPD, hypothyroidism, hypertension, gouty arthritis, benign prostate hypertrop hy, coronary artery disease. SOCIAL HISTORY: Denied smoking, ETOH, or substance abuse. FAMILY HISTORY: Noncontributory. PHYSICAL EXAMINATION: GENERAL: The patient is in bed, not in any cardiopulmonary distress at the time of this examination. VITAL SIGNS: Blood pressure 140/70, temperature 97.7, respiratory rate 20, and pulse 76. HEENT: Pupils equal, reactive to light. Normal-appearing mucosa of the conjunctivae, oropharyngeal, and nasal membrane mucosa. NECK: Supple, no JVD, no carotid bruit, no lymph node, no thyromegaly. CHEST AND LUNGS: Bilateral symmetrical expansion, good air exchange, no rales, no rhonchi. CARDIOVASCULAR: PMI not localized. S1, S2. No additional sounds. ABDOMEN: Normoactive bowel sounds, no tenderness, no organomegaly, no masses. EXTREMITIES: No cyanosis, no clubbing, no edema. CENTRAL NERVOUS SYSTEM: Alert, awake, oriented x 3. No neurological deficits could be appreciated. ASSESSMENT: 1. Chest pain, rule out myocardial infarction. 2. Pulmonary hypertension. 3. Elevated proBNP, likely secondary to congestive heart failure, both systolic and diastolic. PLAN: Increase the diuretic. Cardiology consult and follow recommendations, cardiac enzymes every 8 hours x 3 and resume patient's home medications. Monitor patient on telemetry. Inderjit Allen MD cc: [id number] TT: 09/19/2016 00:03:33 [place]
--- NOTE | 2016-09-19 01:48 | DS ---
REASON FOR ADMISSION: This is an 89-year-old male with history of multiple medical problems who was admitted for chest pain. COURSE OF HOSPITALIZATION: The patient was admitted to telemetry floor and he was started to have ca rdiac enzymes x3 to rule out myocardial infarctions. The patient insisted to go home and he signed a gainst medical advice before completion of the management of his condition. The patient had no speci fic reason for signing against medical advice and he understands the consequences of his decision anay t it could be cardiac arrhythmias and sudden cardiac . FINAL DIAGNOSES: Chest pain, rule out myocardial infarction and pulmonary hypertension, hypothyroidism, gouty arthriti s. [facility] Chencho Allen MD cc: [id number] TT: 09/19/2016 01:48:17 an
== END 2016-09-18 11:35 | disposition left against medical advice (07) ==
LOC: H.ER 01:30 → H.ERHOLD 04:14 → H.TEL 05:31
PROVIDERS: ADMIT Internal Medicine; ATTEND Internal Medicine
DX: R07.89 Other chest pain (principal); I27.2 Other secondary pulmonary hypertension; I25.5 Ischemic cardiomyopathy; I25.10 Atherosclerotic heart disease of native coronary artery without angina pectoris; I11.0 Hypertensive heart disease with heart failure; I50.40 Unspecified combined systolic (congestive) and diastolic (congestive) heart failure; J44.9 Chronic obstructive pulmonary disease, unspecified; I48.91 Unspecified atrial fibrillation; E11.9 Type 2 diabetes mellitus without complications; E78.5 Hyperlipidemia, unspecified; E03.9 Hypothyroidism, unspecified; I45.10 Unspecified right bundle-branch block; F03.90 Unspecified dementia, unspecified severity, without behavioral disturbance, psychotic disturbance, mood disturbance, and anxiety; E78.00 Pure hypercholesterolemia, unspecified; M10.9 Gout, unspecified; N40.0 Benign prostatic hyperplasia without lower urinary tract symptoms; F17.200 Nicotine dependence, unspecified, uncomplicated; Z79.01 Long term (current) use of anticoagulants; Z79.02 Long term (current) use of antithrombotics/antiplatelets; Z79.899 Other long term (current) drug therapy; Z95.1 Presence of aortocoronary bypass graft
CPT/HCPCS: 71020; 80048; 81003; 82948; 83880; 84484; 85025; 85610; 85730; 93005; 99285; G0378; G0480

== ENCOUNTER 2016-10-09 23:02 | Inpatient (IN) | payer MEDICARE, MEDICAID ==
[2016-10-09 23:42] LABS: BASO # 0.1 K/uL (0.0-0.2); BASO % 0.6 % (0.0-2.0); EOS # 0.1 K/uL (0.0-0.7); HEMOGLOBIN 10.7 g/dL (12.0-18.0); LYMPH % 11.6 % (20.0-40.0); MEAN CELL VOLUME 92.9 fl (80.0-94.0); MEAN CORPUSCULAR HGB CONC 33.4 g/dL (33.0-37.0); MEAN PLATELET VOLUME 8.1 fl (7.2-11.7); MONO # 0.7 K/uL (0.0-0.8); MONO % 8.3 % (0.0-10.0); NEUT # 6.7 K/uL (1.8-7.0); NEUT % 78.5 % (50.0-75.0); RBC 3.46 Mil/uL (4.40-5.90); RED CELL DISTRIBUTION WIDTH 15.2 % (11.5-14.5); WHITE BLOOD COUNT 8.6 K/uL (4.8-10.8)
[2016-10-09 23:52] LABS: ALB/GLOB RATIO 1.3 (1.0-2.1); ALBUMIN 3.8 g/dL (3.5-5.0); CALCIUM 9.1 mg/dL (8.4-10.2); MAGNESIUM 1.9 MG/DL (1.6-2.3)
[2016-10-09 23:55] LABS: INR 1.1 (0.9-1.2); PARTIAL THROMBOPLASTIN TIME 48.4 Seconds (25.6-37.1); PROTHROMBIN TIME 12.6 Seconds (9.8-13.1)
[2016-10-10 00:04] LABS: TROPONIN I 0.059 ng/mL (0.00-0.120)
--- NOTE | 2016-10-10 00:29 | CP.PCM.HP ---
History of Present Illness - History of Present Illness History of Present Illness: CC: CP HPI: 89 yr old M with extensive cardiac history as noted below who comes in worsening CP. Patient has chronic CP, but states that today it was acutely worse. Described as SSCP with some SOB, but no radiation, no diaphoresis, no LHness. Patient took ASA and SLNG and felt better. States he is CP free at this time. Denies cough/f/c/n/v/d. Patient was admitted for similar complaints in 06/2016. PCP: Dr. 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% (echo 11/30/15), COPD, DVT/PE, diverticulosis and hypothyroidism SHx: CABG 1993, Cholecystostomy s/p removal 02/13/16, ERCP with stent placement Allergies: NKDA Medications: As per med rec Family Hx: Reviewed, no relevant findings Social Hx: Lives with family, no EtOH, no current tobacco Surrogate: , contact info in chart Present on Admission - Present on Admission Any Indicators Present on Admission: No Past Patient History - Infectious Disease Hx of Infectious Diseases: None - Tetanus Immunizations Tetanus Immunization: Unknown - Past Medical History & Family History Past Medical History?: Yes - Past Social History Smoking Status: Current Some Days Smoker - CARDIAC Hx Atrial Fibrillation: Yes Hx Cardia Arrhythmia: Yes Hx Congestive Heart Failure: Yes Hx Hypercholesterolemia: Yes Hx Hypertension: Yes Hx Peripheral Edema: Yes - PULMONARY Hx Chronic Obstructive Pulmonary Disease (COPD): Yes Hx Pulmonary Embolism: Yes - NEUROLOGICAL Hx Dementia: Yes - HEENT Hx HEENT Problems: No - RENAL Hx Chronic Kidney Disease: No - ENDOCRINE/METABOLIC Hx Hypothyroidism: Yes - HEMATOLOGICAL/ONCOLOGICAL Hx Anemia: Yes Hx Human Immunodeficiency Virus (HIV): No - INTEGUMENTARY Hx Dermatological Problems: No - MUSCULOSKELETAL/RHEUMATOLOGICAL Hx Arthritis: Yes Hx Rheumatoid Arthritis: No - GASTROINTESTINAL Hx Diverticulitis: Yes Hx Gall Bladder Disease: Yes Hx Gastritis: Yes Hx Pancreatitis: Yes - GENITOURINARY/GYNECOLOGICAL Hx Genitourinary Disorders: Yes - PSYCHIATRIC Hx Substance Use: No - SURGICAL HISTORY Hx Cholecystectomy: Yes Hx Coronary Artery Bypass Graft: Yes (quadruple CABG in 1993) - ANESTHESIA Hx Anesthesia: Yes Hx Anesthesia Reactions: No Hx Malignant Hyperthermia: No Meds Allergies/Adverse Reactions: Allergies Allergy/AdvReac Type Severity Reaction Status Date / Time No Known Allergies Allergy Verified 05/10/16 10:31 Physical Exam - Constitutional Appears: No Acute Distress - Head Exam Head Exam: ATRAUMATIC, NORMOCEPHALIC - Eye Exam Eye Exam: EOMI, Normal appearance, PERRL - ENT Exam ENT Exam: Mucous Membranes Dry - Neck Exam Neck exam: Positive for: Full Rom - Respiratory Exam Respiratory Exam: Clear to Auscultation Bilateral, NORMAL BREATHING PATTERN - Cardiovascular Exam Cardiovascular Exam: Irregular Rhythm, +S1, +S2 - GI/Abdominal Exam GI & Abdominal Exam: Normal Bowel Sounds, Soft - Extremities Exam Extremities exam: Positive for: full ROM, normal inspection - Neurological Exam Neurological exam: Alert, CN II-XII Intact, Oriented x3 - Psychiatric Exam Psychiatric exam: Normal Affect, Normal Mood - Skin Skin Exam: Dry, Warm Results - Vital Signs Recent Vital Signs: Last Vital Signs Temp 98 F 10/09/16 23:04 Pulse 101 H 10/09/16 23:04 Resp 20 10/09/16 23:04 BP 175/82 H 10/09/16 23:04 Pulse Ox 100 10/09/16 23:04 - Labs Result Diagrams: 10/09/16 23:38 10/09/16 23:38 Labs: Laboratory Results - last 24 hr 10/09/16 10/09/16 10/09/16 23:38 23:38 23:38 WBC 8.6 RBC 3.46 L Hgb 10.7 L Hct 32.2 L MCV 92.9 MCH 31.0 MCHC 33.4 RDW 15.2 H Plt Count 173 MPV 8.1 Neut % (Auto) 78.5 H Lymph % (Auto) 11.6 L [place] % (Auto) 8.3 Eos % (Auto) 1.0 Baso % (Auto) 0.6 Neut # 6.7 Lymph # 1.0 [place] # 0.7 Eos # 0.1 Baso # 0.1 PT 12.6 INR 1.1 APTT 48.4 H Sodium 138 Potassium 4.5 Chloride 106 Carbon Dioxide 24 Anion Gap 13 BUN 18 Creatinine 1.7 H Est GFR ( Amer) 46 Est GFR (Non-Af Amer) 38 Random Glucose 251 H Calcium 9.1 Phosphorus 2.7 Magnesium 1.9 Total Bilirubin 0.2 AST 30 ALT 32 Alkaline Phosphatase 111 Troponin I 0.0590 NT-Pro-B Natriuret Pep 776 Total Protein 6.7 Albumin 3.8 Globulin 2.9 Albumin/Globulin Ratio 1.3 - EKG Data EKG Interpreted by: Myself EKG shows normal: Sinus rhythm Rate: Normal - EKG Data EKG comments: RBBB and LAFB possibly - Imaging and Cardiology Chest x-ray Status: Image reviewed by me (sternotomy wires, no excessive pulmonary congestion noted, calcified aorta) Assessment & Plan (1) Chest pain Assessment and Plan: 89 y/o male with multiple cardiac problems as well as multiple other chronic medical conditions presenting with CP and LADAN. 1) CAD/CP -Admit tele -Serial trops -Cont nitro paste, ASA, b-blockers, statin -Repeat EKG -Consult cardiology (Ryan) in AM 2) CHF -- appears to be stable at this time, continue home medications except for lasix (as below) 3) LADAN -- unclear etiology; does not appear to be impaired forward flow 2/2 to chf -Check UA, lytes, Cr -May hold diuretics and ARBs o/n and does medications renally -Recheck BMP in AM 4) A fib -- cont b-jose, change Pradaxa to 75 bid until renal function back to baseline 5) DM2 -- continue home medications, dm diet, ssi, accuchecks 6) Hypothyroid -- continue home medications 7) HTN -- continue home medications 8) DVT PPx -- SCDs; also on Pradaxa Status: Acute (2) CAD (coronary artery disease) Status: Chronic (3) Acute kidney failure Status: Acute (4) CHF (congestive heart failure) Status: Chronic Priority: High (5) COPD (chronic obstructive pulmonary disease) Status: Chronic (6) Chronic anemia Status: Chronic (7) Chronic atrial fibrillation Status: Chronic (8) DM2 (diabetes mellitus, type 2) Status: Chronic (9) HTN (hypertension) Status: Chronic Priority: High (10) Hypothyroidism Status: Chronic (11) DVT prophylaxis Status: Acute
[2016-10-10] MEDS ORDERED: Patient's Own Med (Albuterol Sulfate 2 PUFF) IH PRN (00:37)
[2016-10-10] MEDS ORDERED: Alum-Mag Hydrox-Simethicone Susp (30 mL) PO STA (00:38)
--- NOTE | 2016-10-10 00:44 | ED PDOC ---
HPI: Chest Pain Time Seen by Provider: 10/09/16 23:18 Chief Complaint (Nursing): Chest Pain Chief Complaint (Provider): Chest Pain History Per: Patient History/Exam Limitations: no limitations Onset/Duration Of Symptoms: Hrs (earlier today) Current Symptoms Are (Timing): Still Present Nitro Therapy Administered: 1, Per Own Supply, Partial Relief Additional Complaint(s): 89 year old male presents to ED with complaints of chest pain since earlier today and has a past medical history of CABG, HTN, DM, and CHF. Notes that the pain stared while at rest and is present substernally and non-radiating. Confirms that at home, patient took 1 SL nitro and baby ASA. EMS states they administered 1 inch of nitropaste. PCP: Ryan Past Medical History Reviewed: Historical Data, Nursing Documentation, Vital Signs Vital Signs: Last Vital Signs Temp 97.7 F 10/12/16 12:00 Pulse 76 10/12/16 12:00 Resp 18 10/12/16 12:00 BP 130/67 10/12/16 12:00 Pulse Ox 99 10/12/16 12:00 - Medical History PMH: Anemia, Arthritis, Atrial Fibrillation, CAD, Cardia Arrhythmia, CHF, COPD, Dementia, Diabetes (type II ), Diverticulitis, Deep Vein Thrombosis, Gastritis, Gall Bladder Disease, HTN, Hypercholesterolemia, Hyperlipidemia, Hypothyroidism , Pancreatitis, Peripheral Edema, Pulmonary Embolism Denies: HIV, Chronic Kidney Disease, Rheumatoid Arthritis - Surgical History Surgical History: CABG (quadruple CABG in 1993), Cholecystectomy Denies: No Surg Hx - Family History Family History: States: Unknown Family Hx - Living Arrangements Living Arrangements: With Family - Home Medications Home Medications: Ambulatory Orders Medication Instructions Recorded Allopurinol 300 mg PO DAILY 01/09/15 Linagliptin [Tradjenta] 5 mg PO DAILY #1 tab 03/20/16 Albuterol Sulfate [Proair Hfa] 2 puff IH Q12H PRN 05/10/16 Carvedilol [Coreg] 3.125 mg PO Q12H #60 tab 06/29/16 Clopidogrel [Plavix] 75 mg PO DAILY #30 tab 06/29/16 Dabigatran [Pradaxa] 150 mg PO BID #60 cap 06/29/16 Dutasteride [Avodart] 0.5 mg PO DAILY #30 capsule 03/24/17 Levothyroxine [Synthroid] 50 mcg PO DAILY #30 tab 06/29/16 Losartan [Cozaar] 50 mg PO DAILY #30 tab 06/29/16 Tamsulosin [Flomax] 0.4 mg PO BID #60 cap 06/29/16 Tiotropium [Spiriva] 18 mcg IH DAILY #1 cap 06/29/16 Furosemide [Lasix] 40 mg PO DAILY 09/18/16 Isosorbide Mononitrate [Imdur] 30 mg PO DAILY 09/18/16 Isosorbide Mononitrate [Imdur] 60 mg PO DAILY 09/18/16 - Allergies Allergies/Adverse Reactions: Allergies Allergy/AdvReac Type Severity Reaction Status Date / Time No Known Allergies Allergy Verified 05/10/16 10:31 MARI Risk Score for UA/NSTEMI - MARI Risk Score Age > 64: YES 3 or more CAD Risk Factors: YES Known CAD (Stenosis greater than 50%): YES Aspirin use in past 7 days: YES Severe Angina: NO EKG ST changes greater than 0.5mm: NO Positive Cardiac Marker: NO MARI Score: 4 Risk %: 20% Curb-65 Severity Score - CURB-65 Severity Score Confusion: No Respiratory Rate greater than/equal to 30: No Systolic BP <90 or Diastolic BP less than/equal 60mmHg: No Age >64: Yes Curb-65 Score: 1 Percentage 30-day mortality: 2.7% Wells Criteria for PE - Wells Criteria for Pulmonary Embolism P.E is #1 Diagnosis, or Equally Likely: No Heart Rate >100: Yes Previous, objectively diagnosed PE or DVT: No Hemoptysis: No Total Score: 1.5 Review of Systems ROS Statement: Except As Marked, All Systems Reviewed And Found Negative Cardiovascular: Positive for: Chest Pain Physical Exam - Reviewed Nursing Documentation Reviewed: Yes Vital Signs Reviewed: Yes - Physical Exam Appears: Positive for: Well, Non-toxic, No Acute Distress Head Exam: Positive for: ATRAUMATIC, NORMOCEPHALIC Skin: Positive for: Normal Color, Warm, Dry Eye Exam: Positive for: EOMI, Normal appearance, PERRL ENT: Positive for: Normal ENT Inspection Neck: Positive for: Normal, Painless ROM, Supple Cardiovascular/Chest: Positive for: Other (distant heart soundsd) Respiratory: Positive for: Normal Breath Sounds. Negative for: Respiratory Distress Gastrointestinal/Abdominal: Positive for: Normal Exam, Bowel Sounds, Soft. Negative for: Tenderness Back: Positive for: Normal Inspection Extremity: Positive for: Normal ROM, Swelling (Bilateral lower leg edema). Negative for: Deformity Neurologic/Psych: Positive for: Alert. Negative for: Motor/Sensory Deficits - Laboratory Results Result Diagrams: 10/11/16 05:00 10/11/16 05:00 - ECG ECG Rhythm: Positive for: Premature Ventricular Contraction (occasional) Interpretation Of Abn EKG: Bifasicular block, no ST elevations Rate: 93 O2 Sat by Pulse Oximetry: 100 (RA) Pulse Ox Interpretation: Normal Medical Decision Making Medical Decision Makin Initial impression: chest pain Pt will need hospitalization for chest pain with multiple risk factors for cardiac disease and ACS, requiring at least serial troponins, pending ER workup Initial plan: * Labs * Magnesium * Phosphorus * Trop I * PTT/PT * CXR * ASA 162mg PO * Maalox 0025 Initial Troponin negative. Patient is being admitted to Dr. Renner under OBS TELE. (Hospitalist admit for Dr Peter Davis's patients.) Scribe Attestation: Documented by Teri Link acting as a scribe for Key Del Castillo MD. Scribe Attestation: All medical record entries made by the Scribe were at my direction and personally dictated by me. I have reviewed the chart and agree that the record accurately reflects my personal performance of the history, physical exam, medical decision making, and the department course for this patient. I have also personally directed, reviewed, and agree with the discharge instructions and disposition. Disposition - Clinical Impression Clinical Impression: Chest pain - Disposition Disposition Time: 00:00 Condition: FAIR - Pt Status Changed To: Hospital Disposition Of: Observation - POA Present On Arrival: Poor Glycemic Control
[2016-10-10] MEDS ORDERED: Albuterol HFA 90 mcg/actuation (8 g) INH PRN (01:26)
[2016-10-10 01:54] LABS: SQUAMOUS EPITHIAL < 1 /hpf (0-5); URINE BILIRUBIN NEGATIVE (NEGATIVE); URINE BLOOD NEGATIVE (NEGATIVE); URINE CLARITY CLEAR (Clear); URINE COLOR STRAW (YELLOW); URINE GLUCOSE (UA) 150 mg/dL (Normal); URINE LEUKOCYTE ESTERASE NEG Leu/uL (Negative); URINE NITRATE NEGATIVE (NEGATIVE); URINE PROTEIN 100 mg/dL (NEGATIVE); URINE UROBILINOGEN 0.2-1.0 mg/dL (0.2-1.0)
[2016-10-10] MEDS: Nitroglycerin 2% Ointment Foilpak UD TOP SCH ×4 (02:00→21:17)
[2016-10-10] MEDS: Levothyroxine 50 MCG TAB PO SCH (06:34)
[2016-10-10] MEDS: Insulin Lispro (humaLOG) 100 Units/ml Inj SC SCH ×6 (06:52→22:25)
[2016-10-10 07:04] LABS: HEMOGLOBIN 10.7 g/dL (12.0-18.0); MEAN CELL VOLUME 92.4 fl (80.0-94.0); MEAN CORPUSCULAR HGB CONC 33.6 g/dL (33.0-37.0); RBC 3.45 Mil/uL (4.40-5.90); RED CELL DISTRIBUTION WIDTH 15.1 % (11.5-14.5); WHITE BLOOD COUNT 7.7 K/uL (4.8-10.8)
[2016-10-10 07:27] LABS: BLOOD UREA NITROGEN 17 mg/dl (9-20); CALCIUM 9.2 mg/dL (8.4-10.2); GFR AFRICAN-AMERICAN > 60; GFR NON-AFRICAN AMERICAN 52
--- NOTE | 2016-10-10 08:31 | CARD ---
APPROVED REPORT EKG Measurement Heart [id number] <Conclusion> Sinus rhythm with 1st degree AV block with premature atrial complexes Left axis deviation Right bundle branch block Abnormal ECG
--- NOTE | 2016-10-10 08:43 | CARD ---
APPROVED REPORT EKG Measurement Heart [id number] <Conclusion> Sinus rhythm with fusion complexes Right bundle branch block Left anterior fascicular block Bifascicular block Abnormal ECG
[2016-10-10] MEDS ORDERED: Patient's Own Med (Linagliptin [Tradjenta] 5 MG) PO SCH (09:00)
[2016-10-10] MEDS: Tiotropium 18 mcg Cap For Inhalation IH SCH (09:58)
--- NOTE | 2016-10-10 10:06 | CP.PCM.CON ---
History of Present Illness - History of Present Illness History of Present Illness: THE PATIENT IS AN 89 YEAR OLD MALE WITH A HISTORY OF CAD WITH CABGS IN 1993, ISCHEMIC CARDIOMYOPATHY WITH A LVEF OF 25-30%, RECURRENT CHEST PAIN, PAF, DM, COPD, DVT/PE AND HYPOTHYROIDISM. HE HAD A CARDIAC CATH BOUT 5 MONTHS AGO THAT DID NOT SHOW ANY SIGNIFICANT LESIONS. YESTERDAY HE TWICE HAD ABOUT 15 MINUTES OF CHEST PAIN AT 7 PM AND 10 PM AND TOOK AN EXTRA 81 MGS OF ASPIRIN EACH TIME. HE CALLED THE AMBULANCE AFTER THE SECOND ATTACK AND WAS GIVEN A SL NTG SPRAY THAT RELIEVED THE PAIN RIGHT AWAY. HE WAS CHEST PAIN FREE ONCE HE ARRIVED IN THE ER AND HAS BEEN CHEST PAIN FREE SINCE. HE WAS ADMITTED TO OBSERVATION AND CARDIOLOGY WAS ASKED TO SEE HIM. HE IS FOLLOWED BY DR MAYLIN BONNER AND I SAW THE PATIENT FOR HIM. Past Patient History - Infectious Disease Hx of Infectious Diseases: None - Tetanus Immunizations Tetanus Immunization: Unknown - Past Medical History & Family History Past Medical History?: Yes - Past Social History Smoking Status: Current Some Days Smoker - CARDIAC Hx Cardiac Disorders: Yes Hx Atrial Fibrillation: Yes Hx Congestive Heart Failure: Yes Hx Hypercholesterolemia: Yes Hx Peripheral Edema: Yes - PULMONARY Hx Respiratory Disorders: Yes Hx Chronic Obstructive Pulmonary Disease (COPD): Yes - NEUROLOGICAL Hx Neurological Disorder: Yes Hx Dementia: Yes - HEENT Hx HEENT Problems: No - RENAL Hx Chronic Kidney Disease: No - ENDOCRINE/METABOLIC Hx Endocrine Disorders: Yes Hx Diabetes Mellitus Type 2: Yes Hx Hypothyroidism: Yes - HEMATOLOGICAL/ONCOLOGICAL Hx Blood Disorders: Yes Hx Anemia: Yes Hx Human Immunodeficiency Virus (HIV): No Other/Comment: DVT - INTEGUMENTARY Hx Dermatological Problems: No - MUSCULOSKELETAL/RHEUMATOLOGICAL Hx Musculoskeletal Disorders: Yes Hx Arthritis: Yes Hx Falls: No Hx Rheumatoid Arthritis: No - GASTROINTESTINAL Hx Gastrointestinal Disorders: Yes Hx Diverticulitis: Yes Hx Gall Bladder Disease: Yes Hx Gastritis: Yes Hx Pancreatitis: Yes - GENITOURINARY/GYNECOLOGICAL Hx Genitourinary Disorders: Yes Hx Prostate Problems: Yes - PSYCHIATRIC Hx Psychophysiologic Disorder: No Hx Substance Use: No - SURGICAL HISTORY Hx Surgeries: Yes Hx Cholecystectomy: Yes (ERCP with stent) Hx Coronary Artery Bypass Graft: Yes (quadruple CABG in 1993) - ANESTHESIA Hx Anesthesia: Yes Hx Anesthesia Reactions: No Hx Malignant Hyperthermia: No Has any member of the family had a problem w/ anesthesia?: No Meds Allergies/Adverse Reactions: Allergies Allergy/AdvReac Type Severity Reaction Status Date / Time No Known Allergies Allergy Verified 05/10/16 10:31 - Medications Medications: Current Medications Acetaminophen (Tylenol 325mg Tab) 650 mg PO Q6 PRN PRN Reason: Pain, Mild (1-3) Acetaminophen (Tylenol 325mg Tab) 650 mg PO Q6 PRN PRN Reason: Fever >100.4 F Albuterol (Ventolin Hfa 90 Mcg/Actuation (8 G)) 2 puff INH Q12H PRN PRN Reason: Shortness of Breath Allopurinol (Zyloprim) 300 mg PO DAILY [facility] Last Admin: 10/10/16 09:53 Dose: 300 mg Aspirin (Ecotrin) 162 mg PO DAILY [facility] Last Admin: 10/10/16 00:27 Dose: 162 mg Aspirin (Aspirin) 325 mg PO DAILY [facility] Carvedilol (Coreg) 3.125 mg PO Q12 [facility] Clopidogrel Bisulfate (Plavix) 75 mg PO DAILY [facility] Last Admin: 10/10/16 09:53 Dose: 75 mg Dabigatran (Pradaxa) 75 mg PO BID [facility] PRN Reason: Protocol Last Admin: 10/10/16 09:57 Dose: 75 mg Home Med (Dutasteride [Avodart]) 0.5 mg PO DAILY [facility] Insulin Human Lispro (Humalog) 0 units SC ACHS [facility] PRN Reason: Protocol Last Admin: 10/10/16 06:53 Dose: Not Given Levothyroxine Sodium (Synthroid) 50 mcg PO DAILY@0630 [facility] Last Admin: 10/10/16 06:34 Dose: 50 mcg Nitroglycerin (Nitro-Bid 2% Oint) 1 ea TOP Q6H [facility] Last Admin: 10/10/16 06:34 Dose: 1 ea Sitagliptin Phosphate (Januvia) 50 mg PO DAILY [facility] Last Admin: 10/10/16 09:55 Dose: 50 mg Tamsulosin HCl (Flomax) 0.4 mg PO BID [facility] Last Admin: 10/10/16 09:56 Dose: 0.4 mg Tiotropium [place] (Spiriva) 18 mcg IH DAILY [facility] Last Admin: 10/10/16 09:58 Dose: 18 mcg Physical Exam - Respiratory Exam Respiratory Exam: Clear to Auscultation Bilateral - Cardiovascular Exam Cardiovascular Exam: Irregular Rhythm, +S1, +S2 - Extremities Exam Additional comments: NO SIGNIFICANT LE EDEMA - Additional Findings Additional findings: EKG NSR, RBBB TROPONIN # 1 0.059 TROPONIN # 2 0.643 CR 1.7 7/4 CR 1.8 7/5 Results - Vital Signs Recent Vital Signs: Last Vital Signs Temp 98.4 F 10/10/16 08:09 Pulse 75 10/10/16 08:09 Resp 18 10/10/16 08:09 BP 155/67 H 10/10/16 08:09 Pulse Ox 99 10/10/16 08:09 - Labs Result Diagrams: 10/10/16 05:00 10/10/16 05:00 Labs: Laboratory Results - last 24 hr 10/10/16 10/10/16 10/10/16 01:45 01:45 01:45 WBC RBC Hgb Hct MCV MCH MCHC RDW Plt Count Sodium Potassium Chloride Carbon Dioxide Anion Gap BUN Creatinine Est GFR ( Amer) Est GFR (Non-Af Amer) POC Glucose (mg/dL) Random Glucose Calcium Troponin I Urine Color Straw Urine Clarity Clear Urine pH 7.0 Ur Specific [place] 1.012 Urine Protein 100 Urine Glucose (UA) 150 Urine Ketones Negative Urine Blood Negative Urine Nitrate Negative Urine Bilirubin Negative Urine Urobilinogen 0.2-1.0 Ur Leukocyte Esterase Neg Urine RBC (Auto) 2 Urine Microscopic WBC 2 Ur Squamous Epith Cells < 1 Ur Random Creatinine 57.6 Ur Random Sodium 141 Ur Random Potassium 31.7 10/10/16 10/10/16 10/10/16 02:04 05:00 05:00 WBC 7.7 RBC 3.45 L Hgb 10.7 L Hct 31.9 L MCV 92.4 MCH 31.0 MCHC 33.6 RDW 15.1 H Plt Count 171 Sodium 138 Potassium 4.1 Chloride 106 Carbon Dioxide 27 Anion Gap 10 BUN 17 Creatinine 1.3 Est GFR ( Amer) > 60 Est GFR (Non-Af Amer) 52 POC Glucose (mg/dL) 225 H Random Glucose 140 H Calcium 9.2 Troponin I 0.6430 H* Urine Color Urine Clarity Urine pH Ur Specific [place] Urine Protein Urine Glucose (UA) Urine Ketones Urine Blood Urine Nitrate Urine Bilirubin Urine Urobilinogen Ur Leukocyte Esterase Urine RBC (Auto) Urine Microscopic WBC Ur Squamous Epith Cells Ur Random Creatinine Ur Random Sodium Ur Random Potassium 10/10/16 05:33 WBC RBC Hgb Hct MCV MCH MCHC RDW Plt Count Sodium Potassium Chloride Carbon Dioxide Anion Gap BUN Creatinine Est GFR ( Amer) Est GFR (Non-Af Amer) POC Glucose (mg/dL) 169 H Random Glucose Calcium Troponin I Urine Color Urine Clarity Urine pH Ur Specific [place] Urine Protein Urine Glucose (UA) Urine Ketones Urine Blood Urine Nitrate Urine Bilirubin Urine Urobilinogen Ur Leukocyte Esterase Urine RBC (Auto) Urine Microscopic WBC Ur Squamous Epith Cells Ur Random Creatinine Ur Random Sodium Ur Random Potassium Assessment & Plan - Assessment and Plan (Free Text) Assessment: CAD WITH CABGS IN 1993 AND ISCHEMIC CARDIOMYOPATHY WITH RECURRENT ANGINA PECTORIS EPISODES AND RECENT CARDIAC CATH WITHOUT SIGNIFICANT LESIONS NOW WITH CHEST PAIN YESTERDAY AND ELEVATED 2ND TROPONIN THAT CAITLIN BE CARDIAC OR FROM LADAN PAF LADAN DM COPD DVT/PE HISTORY Plan: THE PATIENT WAS ADMITTED TO 4N ON TELEMETRY HE WAS TREATED WITH O2, NITRATES, CARVEDILOL, ASA, CLOPIDOGREL, PRADAXA, BRONCHODILATORS SERIAL EKGS AND CARDIAC ENZYMES THE PATIENT AND DECLINE FURTHER CARDIAC WORK UP SUCH CARDIAC CATH OR STRESS TEST AND HAVE DECLINED AICD IMPLANTATION IN THE PAST I WOULD RECOMMEND KEEPING THE PATIENT IN THE HOSPITAL UNTIL THE TROPONINS ARE TRENDING DOWNWARD PATIENT DISCUSSED WITH THE HOSPITALIST
--- NOTE | 2016-10-10 10:31 | RAD ---
HISTORY: Chest pain COMPARISON: 09/18/2016. FINDINGS: LUNGS: The lungs are well inflated and clear. PLEURA: No significant pleural effusion identified, no pneumothorax apparent. CARDIOVASCULAR: The heart is normal in size. Atherosclerotic aortic arch calcifications are present. Status post CABG. OSSEOUS STRUCTURES: No significant abnormalities. VISUALIZED UPPER ABDOMEN: Normal. OTHER FINDINGS: None. IMPRESSION: No active pulmonary disease.
[2016-10-11] MEDS: Nitroglycerin 2% Ointment Foilpak UD TOP SCH ×4 (04:45→21:33)
[2016-10-11 05:49] LABS: HEMOGLOBIN 10.5 g/dL (12.0-18.0); MEAN CELL VOLUME 92.2 fl (80.0-94.0); MEAN CORPUSCULAR HEMOGLOBIN 30.5 pg (27.0-31.0); RBC 3.46 Mil/uL (4.40-5.90); RED CELL DISTRIBUTION WIDTH 15.1 % (11.5-14.5); WHITE BLOOD COUNT 6.6 K/uL (4.8-10.8)
[2016-10-11] MEDS: Levothyroxine 50 MCG TAB PO SCH (06:07)
[2016-10-11 06:17] LABS: BLOOD UREA NITROGEN 17 mg/dl (9-20); CALCIUM 8.9 mg/dL (8.4-10.2); GFR AFRICAN-AMERICAN > 60; GFR NON-AFRICAN AMERICAN 57
[2016-10-11] MEDS: Tiotropium 18 mcg Cap For Inhalation IH SCH (08:49)
--- NOTE | 2016-10-11 09:15 | CP.PCM.PN ---
Subjective - Date & Time of Evaluation Date of Evaluation: 10/11/16 Time of Evaluation: 08:00 - Subjective Subjective: NO CHEST PAIN OR SOB FEELS GOOD Objective - Vital Signs/Intake and Output Vital Signs (last 24 hours): Temp Pulse Resp BP Pulse Ox 98.5 F 83 18 149/77 99 10/11/16 08:00 10/11/16 08:49 10/11/16 08:00 10/11/16 08:49 10/11/16 08:00 - Medications Medications: Current Medications Acetaminophen (Tylenol 325mg Tab) 650 mg PO Q6 PRN PRN Reason: Pain, Mild (1-3) Acetaminophen (Tylenol 325mg Tab) 650 mg PO Q6 PRN PRN Reason: Fever >100.4 F Albuterol (Ventolin Hfa 90 Mcg/Actuation (8 G)) 2 puff INH Q12H PRN PRN Reason: Shortness of Breath Allopurinol (Zyloprim) 300 mg PO DAILY [facility] Last Admin: 10/11/16 08:50 Dose: 300 mg Aspirin (Aspirin) 325 mg PO DAILY [facility] Last Admin: 10/11/16 08:46 Dose: 325 mg Carvedilol (Coreg) 3.125 mg PO Q12 [facility] Last Admin: 10/11/16 08:47 Dose: 3.125 mg Clopidogrel Bisulfate (Plavix) 75 mg PO DAILY [facility] Last Admin: 10/11/16 08:49 Dose: 75 mg Dabigatran (Pradaxa) 75 mg PO BID [facility] PRN Reason: Protocol Last Admin: 10/11/16 08:49 Dose: 75 mg Furosemide (Lasix) 40 mg PO DAILY [facility] Last Admin: 10/11/16 08:48 Dose: 40 mg Home Med (Dutasteride [Avodart]) 0.5 mg PO DAILY [facility] Insulin Human Lispro (Humalog) 0 units SC ACHS [facility] PRN Reason: Protocol Last Admin: 10/10/16 22:25 Dose: Not Given Isosorbide Mononitrate (Imdur) 60 mg PO DAILY [facility] Last Admin: 10/11/16 08:48 Dose: 60 mg Levothyroxine Sodium (Synthroid) 50 mcg PO DAILY@0630 [facility] Last Admin: 10/11/16 06:07 Dose: 50 mcg Losartan Potassium (Cozaar) 50 mg PO DAILY [facility] Last Admin: 10/11/16 08:47 Dose: 50 mg Nitroglycerin (Nitro-Bid 2% Oint) 1 ea TOP 0300,0900,1500,2100 [facility] Last Admin: 10/11/16 08:49 Dose: 1 ea Sitagliptin Phosphate (Januvia) 50 mg PO DAILY [facility] Last Admin: 10/11/16 08:48 Dose: 50 mg Tamsulosin HCl (Flomax) 0.4 mg PO BID [facility] Last Admin: 10/11/16 08:48 Dose: 0.4 mg Tiotropium [place] (Spiriva) 18 mcg IH DAILY [facility] Last Admin: 10/11/16 08:49 Dose: 18 mcg - Labs Labs: 10/11/16 05:00 10/11/16 05:00 PT 12.6 Seconds (9.8-13.1) 10/09/16 23:38 INR 1.1 (0.9-1.2) 10/09/16 23:38 APTT 48.4 Seconds (25.6-37.1) H 10/09/16 23:38 - Respiratory Exam Respiratory Exam: Clear to Ausculation Bilateral - Cardiovascular Exam Cardiovascular Exam: REGULAR RHYTHM, +S1, +S2 - Extremities Exam Additional comments: NO LE EDEMA - Additional Findings Additional findings: HOSPICE PLAN ADMINISTRATOR NSR THIRD TROPONIN TRENDING DOWN CR 1.2 Assessment and Plan - Assessment and Plan (Free Text) Assessment: CAD-STABLE PAF LADAN-RESOLVED DM Plan: OK TO DISCHARGE FROM CARDIAC [facility] FU WITH DR MAYLIN BONNER-PATIENT INSTRUCTED TO CALL AND MAKE APPT WITHIN ONE WEEK RECOMMEND SL NTG SPRAY RX TO BE GIVEN TO PATIENT UPON DISCHARGE AND PATIENT INSTRUCTED ON USING IT IN THE FUTURE FOR CHEST PAIN
[2016-10-11] MEDS: Insulin Lispro (humaLOG) 100 Units/ml Inj SC SCH ×3 (11:22→22:56)
--- NOTE | 2016-10-11 22:45 | CP.PCM.PN ---
Subjective - Date & Time of Evaluation Date of Evaluation: 10/11/16 Time of Evaluation: 17:00 - Subjective Subjective: Still SOB ,with cough. Objective - Vital Signs/Intake and Output Vital Signs (last 24 hours): Temp Pulse Resp BP Pulse Ox 98 F 66 20 156/66 H 100 10/11/16 19:56 10/11/16 21:33 10/11/16 19:56 10/11/16 21:33 10/11/16 19:56 Intake and Output: 10/11/16 10/12/16 18:59 06:59 Intake Total 950 Balance 950 - Medications Medications: Current Medications Acetaminophen (Tylenol 325mg Tab) 650 mg PO Q6 PRN PRN Reason: Pain, Mild (1-3) Acetaminophen (Tylenol 325mg Tab) 650 mg PO Q6 PRN PRN Reason: Fever >100.4 F Albuterol (Ventolin Hfa 90 Mcg/Actuation (8 G)) 2 puff INH Q12H PRN PRN Reason: Shortness of Breath Allopurinol (Zyloprim) 300 mg PO DAILY [facility] Last Admin: 10/11/16 08:50 Dose: 300 mg Aspirin (Aspirin) 325 mg PO DAILY [facility] Last Admin: 10/11/16 08:46 Dose: 325 mg Carvedilol (Coreg) 3.125 mg PO Q12 [facility] Last Admin: 10/11/16 21:33 Dose: 3.125 mg Clopidogrel Bisulfate (Plavix) 75 mg PO DAILY [facility] Last Admin: 10/11/16 08:49 Dose: 75 mg Dabigatran (Pradaxa) 75 mg PO BID [facility] PRN Reason: Protocol Last Admin: 10/11/16 16:20 Dose: 75 mg Furosemide (Lasix) 40 mg IVP DAILY [facility] Guaifenesin/Dextromethorphan (Robitussin Dm) 5 ml PO TID [facility] Home Med (Dutasteride [Avodart]) 0.5 mg PO DAILY [facility] Insulin Human Lispro (Humalog) 0 units SC ACHS [facility] PRN Reason: Protocol Last Admin: 10/11/16 16:20 Dose: Not Given Isosorbide Mononitrate (Imdur) 60 mg PO DAILY [facility] Last Admin: 10/11/16 08:48 Dose: 60 mg Levothyroxine Sodium (Synthroid) 50 mcg PO DAILY@0630 [facility] Last Admin: 10/11/16 06:07 Dose: 50 mcg Nitroglycerin (Nitro-Bid 2% Oint) 1 ea TOP 0300,0900,1500,2100 [facility] Last Admin: 10/11/16 21:33 Dose: 1 ea Sitagliptin Phosphate (Januvia) 50 mg PO DAILY [facility] Last Admin: 10/11/16 08:48 Dose: 50 mg Tamsulosin HCl (Flomax) 0.4 mg PO BID [facility] Last Admin: 10/11/16 16:19 Dose: 0.4 mg Tiotropium [place] (Spiriva) 18 mcg IH DAILY [facility] Last Admin: 10/11/16 08:49 Dose: 18 mcg - Labs Labs: 10/11/16 05:00 10/11/16 05:00 PT 12.6 Seconds (9.8-13.1) 10/09/16 23:38 INR 1.1 (0.9-1.2) 10/09/16 23:38 APTT 48.4 Seconds (25.6-37.1) H 10/09/16 23:38 - Head Exam Head Exam: ATRAUMATIC, NORMOCEPHALIC - Eye Exam Eye Exam: PERRL Pupil Exam: PERRL - ENT Exam ENT Exam: Mucous Membranes Moist, Normal Exam - Neck Exam Neck Exam: Full ROM - Respiratory Exam Respiratory Exam: Rales - Cardiovascular Exam Cardiovascular Exam: REGULAR RHYTHM - GI/Abdominal Exam GI & Abdominal Exam: Soft, Normal Bowel Sounds - Rectal Exam Rectal Exam: NORMAL INSPECTION - Extremities Exam Extremities Exam: Full ROM - Back Exam Back Exam: Full ROM - Neurological Exam Neurological Exam: Alert, Awake - Skin Skin Exam: Dry, Warm Assessment and Plan - Assessment and Plan (Free Text) Assessment: Assessment & Plan (1) Chest pain Assessment and Plan: 89 y/o male with multiple cardiac problems as well as multiple other chronic medical conditions presenting with CP and LADAN. 1) CAD/CP -Admit tele -Serial trops -Cont nitro paste, ASA, b-blockers, statin -Repeat EKG -Consult cardiology (Ryan) in AM 2) CHF -- appears to be stable at this time, continue home medications . 3) LADAN - -Recheck BMP in AM 4) A fib -- cont b-jose, change Pradaxa to 75 bid until renal function back to baseline 5) DM2 -- continue home medications, dm diet, ssi, accuchecks 6) Hypothyroid -- continue home medications 7) HTN -- continue home medications 8) DVT PPx -- SCDs; also on Pradaxa Status: Acute (2) CAD (coronary artery disease) Status: Chronic (3) Acute kidney failure Status: Acute (4) CHF (congestive heart failure) Status: Chronic Priority: High (5) COPD (chronic obstructive pulmonary disease) Status: Chronic (6) Chronic anemia Status: Chronic (7) Chronic atrial fibrillation Status: Chronic (8) DM2 (diabetes mellitus, type 2) Status: Chronic (9) HTN (hypertension) Status: Chronic Priority: High (10) Hypothyroidism Status: Chronic (11) DVT prophylaxis Status: Acute Plan: As above
[2016-10-11] MEDS: guaiFENesin DM 100 mg-10 mg/5 ml UD PO SCH (22:50)
[2016-10-12] MEDS: Nitroglycerin 2% Ointment Foilpak UD TOP SCH ×4 (03:59→22:09)
[2016-10-12] MEDS: Levothyroxine 50 MCG TAB PO SCH (06:02)
--- NOTE | 2016-10-12 07:07 | PQF GENQUE ---
This form is a permanent part of the medical record 10/12/16 Dr. Allen, The attending physician is required to clarify conflicting documentation in the medical record. The following documentation is noted in the medical record: Please clarify the etiology of chest pain. Diagnosis 1: Chest pain, CAD Diagnosis 2: NSTEMI addendum to H&P. Admitted with chest pain. Documentation of a CAD, Chest pain in the H&P. Addendum to H&P with a diagnosis of NSTEMI. EKG:EKG: Sinus rhythm with 1st degree AV block with premature atrial complexes Left axis deviation Right bundle branch block. Troponin 0.059, 0.643, 0.658, 0.406. Treated with nitrates , aspirin, BB. Clarification of your documentation is requested to better reflect the severity of illness and intensity of treatment of your patient. Indicators present [] Specify: [] [] Specify: [] [] Specify: [] [] Specify: [] Location in the medical record that reflects the above clinical findings: [] Treatment Provided: [] PHYSICIAN'S RESPONSE Based on your medical judgment of the clinical indicators outlined above please clarify the following: [] Practitioner response [] If unable to determine, please check the box, sign and date. Present On Admission (POA) Indicator: [] Present at the time of admission [] Not present at the time of admission [] Clinically Undetermined In responding to this query, please exercise your independent professional judgment. The fact that a question is asked does not imply that any particular answer is desired or expected. Thank you for your clarification on this documentation. If you have any questions please call:ext [phone] * Thank you, Elena Petty RN CDMP [facility]
--- NOTE | 2016-10-12 07:15 | PQF CHF ---
This form is a permanent part of the medical record 10/12/16 Dr. Allen, Please clarify the TYPE of CHF if known. Documentation of a history of CHF with an EF=25-30% from ECHO November 2015. Medication includes Lasix. Clarification of your documentation is requested to better reflect the severity of illness and intensity of treatment of your patient. Indicators present [x] Diagnosis of CHF and/or history of CHF [x] BNP > 200 [] Imaging Finding of Pulmonary Edema /Pleural Effusions [] Fluid/Volume Overload [] Pitting edema [x] Ejection Fraction < 40% (Indicative of Systolic Heart Failure) Echo 2015 [] Ejection Fraction > 40% (Indicative of Diastolic Heart Failure) [] Dyspnea / Orthopenea / Paroxysmal Nocturnal Dyspnea [] Other: Location in the medical record that reflects the above clinical findings: [] Treatment Provided: [x] PHYSICIAN'S RESPONSE Based on your medical judgment of the clinical indicators outlined above, are you treating this patient for a known or suspected: [] Acute CHF [] Systolic [] Diastolic [] Combined [] Chronic CHF [] Systolic [] Diastolic [] Combined [] Acute on Chronic CHF []Systolic [] Diastolic [] Combined [] CHF due hypertension [] Acute systolic []Chronic systolic [] Acute/ chronic systolic [] Other, please indicate: [] [] If Unable to Determine, please check the box, sign and date. Present On Admission (POA) Indicator: [] Present at the time of admission [] Not present at the time of admission [] Clinically Undetermined In responding to this query, please exercise your independent professional judgment. The fact that a question is asked does not imply that any particular answer is desired or expected. Thank you for your clarification on this documentation. If you have any questions please call:ext [phone] * Thank you, Elena Petty RN, CDENCOM[facility]
[2016-10-12 08:47] VITALS: BMI 37.8
[2016-10-12] MEDS: Tiotropium 18 mcg Cap For Inhalation IH SCH (09:22)
[2016-10-12] MEDS: Insulin Lispro (humaLOG) 100 Units/ml Inj SC SCH ×4 (09:23→22:10)
--- NOTE | 2016-10-12 09:23 | CP.PCM.PN ---
Subjective - Date & Time of Evaluation Date of Evaluation: 10/12/16 Time of Evaluation: 08:30 - Subjective Subjective: NO CHEST PAIN BREATHING WELL Objective - Vital Signs/Intake and Output Vital Signs (last 24 hours): Temp Pulse Resp BP Pulse Ox 98.3 F 73 18 143/57 L 100 10/12/16 08:03 10/12/16 08:03 10/12/16 08:03 10/12/16 08:03 10/12/16 08:03 - Medications Medications: Current Medications Acetaminophen (Tylenol 325mg Tab) 650 mg PO Q6 PRN PRN Reason: Pain, Mild (1-3) Acetaminophen (Tylenol 325mg Tab) 650 mg PO Q6 PRN PRN Reason: Fever >100.4 F Albuterol (Ventolin Hfa 90 Mcg/Actuation (8 G)) 2 puff INH Q12H PRN PRN Reason: Shortness of Breath Allopurinol (Zyloprim) 300 mg PO DAILY [facility] Last Admin: 10/11/16 08:50 Dose: 300 mg Aspirin (Aspirin) 325 mg PO DAILY [facility] Last Admin: 10/11/16 08:46 Dose: 325 mg Carvedilol (Coreg) 3.125 mg PO Q12 [facility] Last Admin: 10/11/16 21:33 Dose: 3.125 mg Clopidogrel Bisulfate (Plavix) 75 mg PO DAILY [facility] Last Admin: 10/11/16 08:49 Dose: 75 mg Dabigatran (Pradaxa) 75 mg PO BID [facility] PRN Reason: Protocol Last Admin: 10/11/16 16:20 Dose: 75 mg Furosemide (Lasix) 40 mg IVP DAILY [facility] Guaifenesin/Dextromethorphan (Robitussin Dm) 5 ml PO TID [facility] Last Admin: 10/11/16 22:50 Dose: 5 ml Home Med (Dutasteride [Avodart]) 0.5 mg PO DAILY [facility] Insulin Human Lispro (Humalog) 0 units SC ACHS [facility] PRN Reason: Protocol Last Admin: 10/11/16 22:56 Dose: Not Given Isosorbide Mononitrate (Imdur) 60 mg PO DAILY [facility] Last Admin: 10/11/16 08:48 Dose: 60 mg Levothyroxine Sodium (Synthroid) 50 mcg PO DAILY@0630 [facility] Last Admin: 07/07/17 06:02 Dose: 50 mcg Nitroglycerin (Nitro-Bid 2% Oint) 1 ea TOP 0300,0900,1500,2100 [facility] Last Admin: 10/12/16 03:59 Dose: 1 ea Sitagliptin Phosphate (Januvia) 50 mg PO DAILY [facility] Last Admin: 10/11/16 08:48 Dose: 50 mg Tamsulosin HCl (Flomax) 0.4 mg PO BID [facility] Last Admin: 10/11/16 16:19 Dose: 0.4 mg Tiotropium [place] (Spiriva) 18 mcg IH DAILY [facility] Last Admin: 10/11/16 08:49 Dose: 18 mcg - Labs Labs: PT 12.6 Seconds (9.8-13.1) 10/09/16 23:38 INR 1.1 (0.9-1.2) 10/09/16 23:38 APTT 48.4 Seconds (25.6-37.1) H 10/09/16 23:38 - Respiratory Exam Respiratory Exam: Clear to Ausculation Bilateral - Cardiovascular Exam Cardiovascular Exam: REGULAR RHYTHM, +S1, +S2 - Extremities Exam Additional comments: NO LE EDEMA - Additional Findings Additional findings: EKG NSR, RBBB TROPONIN THIS AM 0.29 Assessment and Plan - Assessment and Plan (Free Text) Assessment: 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
[2016-10-12] MEDS: guaiFENesin DM 100 mg-10 mg/5 ml UD PO SCH ×3 (09:25→17:07)
--- NOTE | 2016-10-12 18:29 | CARD ---
APPROVED REPORT EKG Measurement Heart [id number] <Conclusion> Normal sinus rhythm Left axis deviation Right bundle branch block Abnormal ECG
--- NOTE | 2016-10-12 19:59 | CARD ---
APPROVED REPORT EXAM: Two-dimensional and M-mode echocardiogram with Doppler and color Doppler. Other Information Quality : GoodRhythm : NSR INDICATION Congestive Heart Failure Surgery/Intervention CABD DIMENSIONS IVSd1.24 (0.7-1.1cm)LVDd4.78 (3.9-5.9cm) LVOT Diameter1.73 (1.8-2.4cm)PWd1.25 (0.7-1.1cm) IVSs1.92 (0.8-1.2cm)LVDs3.69 (2.5-4.0cm) FS (%) 22.8 %PWs1.42 (0.8-1.2cm) M-Mode DIMENSIONS Left Atrium (MM)4.43 (2.5-4.0cm)IVSd1.16 (0.7-1.1cm) Aortic Root3.57 (2.2-3.7cm)LVDd6.42 (4.0-5.6cm) Aortic Cusp Exc.2.02 (1.5-2.0cm)PWd0.89 (0.7-1.1cm) IVSs2.15 cmFS (%) 39 % LVDs3.94 (2.0-3.8cm)PWs1.39 cm Mitral Valve MV E Uutsokkq670.1cm/sMV DECEL [id number] A Nhuyowuf206.3cm/s MV HFC21vxT/A ratio1.0MVA (PHT)2.84cm2 TDI Lateral E' Peak V6.76cm/sMedial E' Peak V4.64cm/sE/Lateral E'14.8 E/Medial E'21.6 Pulmonary Valve PV Peak Bcsuocye39.4cm/s LEFT VENTRICLE The left ventricle is normal size. There is mild concentric left ventricular hypertrophy. The left ventricular function is normal. The left ventricular ejection fraction is within the normal range. The Ejection Fraction is 50-55%. There is normal LV segmental wall motion. The left ventricular diastolic function is normal. No left ventricle thrombus noted on this study. RIGHT VENTRICLE The right ventricle is normal size. There is normal right ventricular wall thickness. The right ventricular systolic function is normal. ATRIA The left atrium size is normal. The right atrium size is normal. The interatrial septum is intact with no evidence for an atrial septal defect. AORTIC VALVE The aortic valve is normal in structure and function. No aortic regurgitation is present. There is no aortic valvular stenosis. There is no aortic valvular vegetation. MITRAL VALVE The mitral valve is normal in structure and function. There is no evidence of mitral valve prolapse. There is no mitral valve stenosis. There is no mitral valve regurgitation noted. TRICUSPID VALVE The tricuspid valve is normal in structure and function. There is no tricuspid valve regurgitation noted. There is no tricuspid valve prolapse or vegetation. There is no tricuspid valve stenosis. PULMONIC VALVE The pulmonary valve is normal in structure and function. There is no pulmonic valvular regurgitation. There is no pulmonic valvular stenosis. GREAT VESSELS The aortic root is normal in size. The IVC is normal in size and collapses >50% with inspiration. PERICARDIAL EFFUSION The pericardium appears normal. There is no pleural effusion. <Conclusion> The left ventricle is normal size. The left ventricular function is normal. The left ventricular ejection fraction is within the normal range. The Ejection Fraction is 50-55%. There is mild concentric left ventricular hypertrophy.
[2016-10-13] MEDS: Nitroglycerin 2% Ointment Foilpak UD TOP SCH ×4 (03:00→21:11)
[2016-10-13] MEDS: Levothyroxine 50 MCG TAB PO SCH (06:41)
[2016-10-13] MEDS: Insulin Lispro (humaLOG) 100 Units/ml Inj SC SCH ×4 (06:44→21:15)
[2016-10-13 07:55] LABS: HEMOGLOBIN 9.9 g/dL (12.0-18.0); MEAN CELL VOLUME 92.3 fl (80.0-94.0); MEAN CORPUSCULAR HEMOGLOBIN 31.2 pg (27.0-31.0); MEAN CORPUSCULAR HGB CONC 33.8 g/dL (33.0-37.0); RBC 3.19 Mil/uL (4.40-5.90); RED CELL DISTRIBUTION WIDTH 14.4 % (11.5-14.5); WHITE BLOOD COUNT 6.1 K/uL (4.8-10.8)
[2016-10-13 08:18] LABS: BLOOD UREA NITROGEN 22 mg/dl (9-20); CALCIUM 8.8 mg/dL (8.4-10.2); GFR AFRICAN-AMERICAN > 60; GFR NON-AFRICAN AMERICAN 52
[2016-10-13] MEDS: Tiotropium 18 mcg Cap For Inhalation IH SCH (08:57)
[2016-10-13] MEDS: guaiFENesin DM 100 mg-10 mg/5 ml UD PO SCH ×3 (08:59→16:15)
--- NOTE | 2016-10-13 15:01 | CP.PCM.PN ---
Subjective - Date & Time of Evaluation Date of Evaluation: 10/13/16 Time of Evaluation: 13:00 - Subjective Subjective: NO CHEST PAIN BREATHING BETTER Objective - Vital Signs/Intake and Output Vital Signs (last 24 hours): Temp Pulse Resp BP Pulse Ox 97.7 F 77 20 147/69 98 10/13/16 12:00 10/13/16 12:00 10/13/16 12:00 10/13/16 12:00 10/13/16 12:00 Intake and Output: 10/13/16 10/13/16 06:59 18:59 Intake Total 500 Output Total 1500 Balance -1000 - Medications Medications: Current Medications Acetaminophen (Tylenol 325mg Tab) 650 mg PO Q6 PRN PRN Reason: Pain, Mild (1-3) Acetaminophen (Tylenol 325mg Tab) 650 mg PO Q6 PRN PRN Reason: Fever >100.4 F Albuterol (Ventolin Hfa 90 Mcg/Actuation (8 G)) 2 puff INH Q12H PRN PRN Reason: Shortness of Breath Allopurinol (Zyloprim) 300 mg PO DAILY [facility] Last Admin: 10/13/16 08:57 Dose: 300 mg Aspirin (Aspirin) 325 mg PO DAILY [facility] Last Admin: 10/13/16 09:01 Dose: 325 mg Carvedilol (Coreg) 3.125 mg PO Q12 [facility] Last Admin: 10/13/16 08:57 Dose: 3.125 mg Clopidogrel Bisulfate (Plavix) 75 mg PO DAILY [facility] Last Admin: 10/13/16 08:57 Dose: 75 mg Dabigatran (Pradaxa) 75 mg PO BID [facility] PRN Reason: Protocol Last Admin: 10/13/16 08:57 Dose: 75 mg Furosemide (Lasix) 40 mg IVP DAILY [facility] Last Admin: 10/13/16 08:58 Dose: 40 mg Guaifenesin/Dextromethorphan (Robitussin Dm) 5 ml PO TID [facility] Last Admin: 10/13/16 12:14 Dose: Not Given Home Med (Dutasteride [Avodart]) 0.5 mg PO DAILY [facility] Insulin Human Lispro (Humalog) 0 units SC ACHS [facility] PRN Reason: Protocol Last Admin: 10/13/16 12:13 Dose: Not Given Isosorbide Mononitrate (Imdur) 60 mg PO DAILY [facility] Last Admin: 10/13/16 08:57 Dose: 60 mg Levothyroxine Sodium (Synthroid) 50 mcg PO DAILY@0630 [facility] Last Admin: 10/13/16 06:41 Dose: 50 mcg Nitroglycerin (Nitro-Bid 2% Oint) 1 ea TOP 0300,0900,1500,2100 [facility] Last Admin: 10/13/16 08:58 Dose: 1 ea Sitagliptin Phosphate (Januvia) 50 mg PO DAILY [facility] Last Admin: 10/13/16 08:58 Dose: 50 mg Tamsulosin HCl (Flomax) 0.4 mg PO BID [facility] Last Admin: 10/13/16 08:57 Dose: 0.4 mg Tiotropium [place] (Spiriva) 18 mcg IH DAILY [facility] Last Admin: 10/13/16 08:57 Dose: 18 mcg - Labs Labs: 10/13/16 06:30 10/13/16 06:30 PT 12.6 Seconds (9.8-13.1) 10/09/16 23:38 INR 1.1 (0.9-1.2) 10/09/16 23:38 APTT 48.4 Seconds (25.6-37.1) H 10/09/16 23:38 - Respiratory Exam Respiratory Exam: Clear to Ausculation Bilateral - Cardiovascular Exam Cardiovascular Exam: REGULAR RHYTHM, +S1, +S2 - Additional Findings Additional findings: CSR NSR Assessment and Plan - Assessment and Plan (Free Text) Assessment: CAD CARDIOMYOPATHY HYPERTENSION DM Plan: CONTINUE ASPIRIN, CLOPIDOGREL, CARVEDILOL, FUROSEMIDE, NITRATES, PRADAXA
[2016-10-14] MEDS: Nitroglycerin 2% Ointment Foilpak UD TOP SCH ×4 (04:00→21:41)
[2016-10-14] MEDS: Insulin Lispro (humaLOG) 100 Units/ml Inj SC SCH ×4 (06:49→21:56)
[2016-10-14] MEDS: Levothyroxine 50 MCG TAB PO SCH (06:49)
--- NOTE | 2016-10-14 08:39 | CP.PCM.PN ---
Subjective - Date & Time of Evaluation Date of Evaluation: 10/12/16 Time of Evaluation: 11:40 - Subjective Subjective: Exertional SOB Objective - Vital Signs/Intake and Output Vital Signs (last 24 hours): Temp Pulse Resp BP Pulse Ox 97.8 F 76 18 156/65 H 97 10/14/16 05:16 10/14/16 05:16 10/14/16 05:16 10/14/16 05:16 10/14/16 05:16 Intake and Output: 10/14/16 10/14/16 06:59 18:59 Intake Total 360 Output Total 500 Balance -140 - Medications Medications: Current Medications Acetaminophen (Tylenol 325mg Tab) 650 mg PO Q6 PRN PRN Reason: Pain, Mild (1-3) Acetaminophen (Tylenol 325mg Tab) 650 mg PO Q6 PRN PRN Reason: Fever >100.4 F Albuterol (Ventolin Hfa 90 Mcg/Actuation (8 G)) 2 puff INH Q12H PRN PRN Reason: Shortness of Breath Allopurinol (Zyloprim) 300 mg PO DAILY [facility] Last Admin: 10/13/16 08:57 Dose: 300 mg Aspirin (Aspirin) 325 mg PO DAILY [facility] Last Admin: 10/13/16 09:01 Dose: 325 mg Carvedilol (Coreg) 3.125 mg PO Q12 [facility] Last Admin: 10/13/16 21:11 Dose: 3.125 mg Clopidogrel Bisulfate (Plavix) 75 mg PO DAILY [facility] Last Admin: 10/13/16 08:57 Dose: 75 mg Dabigatran (Pradaxa) 75 mg PO BID [facility] PRN Reason: Protocol Last Admin: 10/13/16 16:15 Dose: 75 mg Furosemide (Lasix) 40 mg IVP DAILY [facility] Last Admin: 10/13/16 08:58 Dose: 40 mg Guaifenesin/Dextromethorphan (Robitussin Dm) 5 ml PO TID [facility] Last Admin: 10/13/16 16:15 Dose: 5 ml Home Med (Dutasteride [Avodart]) 0.5 mg PO DAILY [facility] Insulin Human Lispro (Humalog) 0 units SC ACHS [facility] PRN Reason: Protocol Last Admin: 10/14/16 06:51 Dose: Not Given Isosorbide Mononitrate (Imdur) 60 mg PO DAILY [facility] Last Admin: 10/13/16 08:57 Dose: 60 mg Levothyroxine Sodium (Synthroid) 50 mcg PO DAILY@0630 [facility] Last Admin: 10/14/16 06:49 Dose: 50 mcg Nitroglycerin (Nitro-Bid 2% Oint) 1 ea TOP 0300,0900,1500,2100 [facility] Last Admin: 10/14/16 04:00 Dose: 1 ea Sitagliptin Phosphate (Januvia) 50 mg PO DAILY [facility] Last Admin: 10/13/16 08:58 Dose: 50 mg Tamsulosin HCl (Flomax) 0.4 mg PO BID [facility] Last Admin: 10/13/16 16:15 Dose: 0.4 mg Tiotropium [place] (Spiriva) 18 mcg IH DAILY [facility] Last Admin: 10/13/16 08:57 Dose: 18 mcg - Labs Labs: 10/13/16 06:30 10/13/16 06:30 PT 12.6 Seconds (9.8-13.1) 10/09/16 23:38 INR 1.1 (0.9-1.2) 10/09/16 23:38 APTT 48.4 Seconds (25.6-37.1) H 10/09/16 23:38 Assessment and Plan - Assessment and Plan (Free Text) Assessment: Assessment and Plan (Free Text) Assessment: CAD CARDIOMYOPATHY HYPERTENSION DM Chronic A fib Plan: CONTINUE ASPIRIN, CLOPIDOGREL, CARVEDILOL, FUROSEMIDE, NITRATES, PRADAXA Plan: As above
--- NOTE | 2016-10-14 08:46 | CP.PCM.PN ---
Subjective - Date & Time of Evaluation Date of Evaluation: 10/13/16 Time of Evaluation: 17:00 - Subjective Subjective: Exertional SOB Objective - Vital Signs/Intake and Output Vital Signs (last 24 hours): Temp Pulse Resp BP Pulse Ox 97.8 F 76 18 156/65 H 97 10/14/16 05:16 10/14/16 05:16 10/14/16 05:16 10/14/16 05:16 10/14/16 05:16 Intake and Output: 10/14/16 10/14/16 06:59 18:59 Intake Total 360 Output Total 500 Balance -140 - Medications Medications: Current Medications Acetaminophen (Tylenol 325mg Tab) 650 mg PO Q6 PRN PRN Reason: Pain, Mild (1-3) Acetaminophen (Tylenol 325mg Tab) 650 mg PO Q6 PRN PRN Reason: Fever >100.4 F Albuterol (Ventolin Hfa 90 Mcg/Actuation (8 G)) 2 puff INH Q12H PRN PRN Reason: Shortness of Breath Allopurinol (Zyloprim) 300 mg PO DAILY [facility] Last Admin: 10/13/16 08:57 Dose: 300 mg Aspirin (Aspirin) 325 mg PO DAILY [facility] Last Admin: 10/13/16 09:01 Dose: 325 mg Carvedilol (Coreg) 3.125 mg PO Q12 [facility] Last Admin: 10/13/16 21:11 Dose: 3.125 mg Clopidogrel Bisulfate (Plavix) 75 mg PO DAILY [facility] Last Admin: 10/13/16 08:57 Dose: 75 mg Dabigatran (Pradaxa) 75 mg PO BID [facility] PRN Reason: Protocol Last Admin: 10/13/16 16:15 Dose: 75 mg Furosemide (Lasix) 40 mg IVP DAILY [facility] Last Admin: 10/13/16 08:58 Dose: 40 mg Guaifenesin/Dextromethorphan (Robitussin Dm) 5 ml PO TID [facility] Last Admin: 10/13/16 16:15 Dose: 5 ml Home Med (Dutasteride [Avodart]) 0.5 mg PO DAILY [facility] Insulin Human Lispro (Humalog) 0 units SC ACHS [facility] PRN Reason: Protocol Last Admin: 10/14/16 06:51 Dose: Not Given Isosorbide Mononitrate (Imdur) 60 mg PO DAILY [facility] Last Admin: 10/13/16 08:57 Dose: 60 mg Levothyroxine Sodium (Synthroid) 50 mcg PO DAILY@0630 [facility] Last Admin: 10/14/16 06:49 Dose: 50 mcg Nitroglycerin (Nitro-Bid 2% Oint) 1 ea TOP 0300,0900,1500,2100 [facility] Last Admin: 10/14/16 04:00 Dose: 1 ea Sitagliptin Phosphate (Januvia) 50 mg PO DAILY [facility] Last Admin: 10/13/16 08:58 Dose: 50 mg Tamsulosin HCl (Flomax) 0.4 mg PO BID [facility] Last Admin: 10/13/16 16:15 Dose: 0.4 mg Tiotropium [place] (Spiriva) 18 mcg IH DAILY [facility] Last Admin: 10/13/16 08:57 Dose: 18 mcg - Labs Labs: 10/13/16 06:30 10/13/16 06:30 PT 12.6 Seconds (9.8-13.1) 10/09/16 23:38 INR 1.1 (0.9-1.2) 10/09/16 23:38 APTT 48.4 Seconds (25.6-37.1) H 10/09/16 23:38 - Head Exam Head Exam: ATRAUMATIC, NORMOCEPHALIC - Eye Exam Eye Exam: Normal appearance, PERRL - ENT Exam ENT Exam: Mucous Membranes Moist - Neck Exam Neck Exam: Full ROM - Respiratory Exam Respiratory Exam: Rales - Cardiovascular Exam Cardiovascular Exam: Irregular Rhythm - GI/Abdominal Exam GI & Abdominal Exam: Soft, Normal Bowel Sounds Assessment and Plan - Assessment and Plan (Free Text) Assessment: Assessment & Plan (1) Chest pain Assessment and Plan: 89 y/o male with multiple cardiac problems as well as multiple other chronic medical conditions presenting with CP and LADAN. 1) CAD/CP -Admit tele -Serial trops -Cont nitro paste, ASA, b-blockers, statin 2) CHF -- appears to be stable at this time, continue home medications . 3) LADAN - -Recheck BMP in AM 4) A fib -- cont b-jose, change Pradaxa to 75 bid until renal function back to baseline 5) DM2 -- continue home medications, dm diet, ssi, accuchecks 6) Hypothyroid -- continue home medications 7) HTN -- continue home medications 8) DVT PPx -- SCDs; also on Pradaxa Status: Acute Plan: As above
[2016-10-14] MEDS: Tiotropium 18 mcg Cap For Inhalation IH SCH (08:50)
[2016-10-14] MEDS: guaiFENesin DM 100 mg-10 mg/5 ml UD PO SCH ×3 (09:11→16:23)
--- NOTE | 2016-10-14 14:30 | CP.PCM.PN ---
Subjective - Date & Time of Evaluation Date of Evaluation: 10/14/16 Time of Evaluation: 13:15 - Subjective Subjective: NO CHEST PAIN BREATHING BETTER TODAY Objective - Vital Signs/Intake and Output Vital Signs (last 24 hours): Temp Pulse Resp BP Pulse Ox 97.8 F 65 18 155/58 H 98 10/14/16 08:00 10/14/16 08:50 10/14/16 08:00 10/14/16 08:50 10/14/16 08:00 Intake and Output: 10/14/16 10/14/16 06:59 18:59 Intake Total 360 Output Total 500 Balance -140 - Medications Medications: Current Medications Acetaminophen (Tylenol 325mg Tab) 650 mg PO Q6 PRN PRN Reason: Pain, Mild (1-3) Acetaminophen (Tylenol 325mg Tab) 650 mg PO Q6 PRN PRN Reason: Fever >100.4 F Albuterol (Ventolin Hfa 90 Mcg/Actuation (8 G)) 2 puff INH Q12H PRN PRN Reason: Shortness of Breath Allopurinol (Zyloprim) 300 mg PO DAILY [facility] Last Admin: 10/14/16 08:49 Dose: 300 mg Aspirin (Aspirin) 325 mg PO DAILY [facility] Last Admin: 10/14/16 08:55 Dose: 325 mg Carvedilol (Coreg) 3.125 mg PO Q12 [facility] Last Admin: 10/14/16 08:50 Dose: 3.125 mg Clopidogrel Bisulfate (Plavix) 75 mg PO DAILY [facility] Last Admin: 10/14/16 08:50 Dose: 75 mg Dabigatran (Pradaxa) 75 mg PO BID [facility] PRN Reason: Protocol Last Admin: 10/14/16 08:48 Dose: 75 mg Furosemide (Lasix) 40 mg IVP DAILY [facility] Last Admin: 10/14/16 08:50 Dose: 40 mg Guaifenesin/Dextromethorphan (Robitussin Dm) 5 ml PO TID [facility] Last Admin: 10/14/16 13:11 Dose: 5 ml Home Med (Dutasteride [Avodart]) 0.5 mg PO DAILY [facility] Insulin Human Lispro (Humalog) 0 units SC ACHS [facility] PRN Reason: Protocol Last Admin: 10/14/16 13:10 Dose: Not Given Isosorbide Mononitrate (Imdur) 60 mg PO DAILY [facility] Last Admin: 10/14/16 08:51 Dose: 60 mg Levothyroxine Sodium (Synthroid) 50 mcg PO DAILY@0630 [facility] Last Admin: 10/14/16 06:49 Dose: 50 mcg Nitroglycerin (Nitro-Bid 2% Oint) 1 ea TOP 0300,0900,1500,2100 [facility] Last Admin: 10/14/16 08:49 Dose: 1 ea Sitagliptin Phosphate (Januvia) 50 mg PO DAILY [facility] Last Admin: 10/14/16 08:48 Dose: 50 mg Tamsulosin HCl (Flomax) 0.4 mg PO BID [facility] Last Admin: 10/14/16 08:51 Dose: 0.4 mg Tiotropium [place] (Spiriva) 18 mcg IH DAILY [facility] Last Admin: 10/14/16 08:50 Dose: 18 mcg - Labs Labs: 10/13/16 06:30 10/13/16 06:30 PT 12.6 Seconds (9.8-13.1) 10/09/16 23:38 INR 1.1 (0.9-1.2) 10/09/16 23:38 APTT 48.4 Seconds (25.6-37.1) H 10/09/16 23:38 - Respiratory Exam Respiratory Exam: Clear to Ausculation Bilateral - Cardiovascular Exam Cardiovascular Exam: REGULAR RHYTHM, +S1, +S2 - Additional Findings 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
[2016-10-15 00:40] VITALS: RESP 18
[2016-10-15] MEDS: Nitroglycerin 2% Ointment Foilpak UD TOP SCH ×2 (02:36→09:54)
[2016-10-15] MEDS: Levothyroxine 50 MCG TAB PO SCH (06:02)
[2016-10-15] MEDS: Insulin Lispro (humaLOG) 100 Units/ml Inj SC SCH (07:00)
[2016-10-15 07:30] LABS: ALB/GLOB RATIO 1.2 (1.0-2.1); ALBUMIN 3.9 g/dL (3.5-5.0); ALT/SGPT 29 U/L (21-72); AST/SGOT 34 U/L (17-59); BLOOD UREA NITROGEN 23 mg/dl (9-20); CALCIUM 9.7 mg/dL (8.4-10.2); GFR AFRICAN-AMERICAN > 60; GFR NON-AFRICAN AMERICAN 52
[2016-10-15 08:38] VITALS: BP 132/54; PULSE 66; TEMP 97.7; O2SAT 95
[2016-10-15] MEDS: Tiotropium 18 mcg Cap For Inhalation IH SCH (09:52)
[2016-10-15] MEDS: guaiFENesin DM 100 mg-10 mg/5 ml UD PO SCH (09:53)
--- NOTE | 2016-10-15 09:59 | CP.PCM.PN ---
Subjective - Date & Time of Evaluation Date of Evaluation: 10/15/16 Time of Evaluation: 08:30 - Subjective Subjective: NO CHEST PAIN OR SOB Objective - Vital Signs/Intake and Output Vital Signs (last 24 hours): Temp Pulse Resp BP Pulse Ox 97.7 F 66 18 132/54 L 95 10/15/16 08:37 10/15/16 09:54 10/15/16 08:37 10/15/16 09:54 10/15/16 08:37 - Medications Medications: Current Medications Acetaminophen (Tylenol 325mg Tab) 650 mg PO Q6 PRN PRN Reason: Pain, Mild (1-3) Acetaminophen (Tylenol 325mg Tab) 650 mg PO Q6 PRN PRN Reason: Fever >100.4 F Albuterol (Ventolin Hfa 90 Mcg/Actuation (8 G)) 2 puff INH Q12H PRN PRN Reason: Shortness of Breath Allopurinol (Zyloprim) 300 mg PO DAILY [facility] Last Admin: 10/15/16 09:55 Dose: 300 mg Aspirin (Aspirin) 325 mg PO DAILY [facility] Last Admin: 10/14/16 08:55 Dose: 325 mg Carvedilol (Coreg) 3.125 mg PO Q12 [facility] Last Admin: 10/15/16 09:52 Dose: 3.125 mg Clopidogrel Bisulfate (Plavix) 75 mg PO DAILY [facility] Last Admin: 10/15/16 09:54 Dose: 75 mg Dabigatran (Pradaxa) 75 mg PO BID [facility] PRN Reason: Protocol Last Admin: 10/15/16 09:53 Dose: 75 mg Furosemide (Lasix) 40 mg IVP DAILY [facility] Last Admin: 10/15/16 09:53 Dose: 40 mg Guaifenesin/Dextromethorphan (Robitussin Dm) 5 ml PO TID [facility] Last Admin: 10/15/16 09:53 Dose: 5 ml Home Med (Dutasteride [Avodart]) 0.5 mg PO DAILY [facility] Insulin Human Lispro (Humalog) 0 units SC ACHS [facility] PRN Reason: Protocol Last Admin: 10/15/16 07:00 Dose: Not Given Isosorbide Mononitrate (Imdur) 60 mg PO DAILY [facility] Last Admin: 10/15/16 09:53 Dose: 60 mg Levothyroxine Sodium (Synthroid) 50 mcg PO DAILY@0630 [facility] Last Admin: 10/15/16 06:02 Dose: 50 mcg Nitroglycerin (Nitro-Bid 2% Oint) 1 ea TOP 0300,0900,1500,2100 [facility] Last Admin: 10/15/16 09:54 Dose: 1 ea Sitagliptin Phosphate (Januvia) 50 mg PO DAILY [facility] Last Admin: 10/15/16 09:53 Dose: 50 mg Tamsulosin HCl (Flomax) 0.4 mg PO BID [facility] Last Admin: 10/15/16 09:52 Dose: 0.4 mg Tiotropium [place] (Spiriva) 18 mcg IH DAILY [facility] Last Admin: 10/15/16 09:52 Dose: 18 mcg - Labs Labs: 10/13/16 06:30 10/15/16 05:00 PT 12.6 Seconds (9.8-13.1) 10/09/16 23:38 INR 1.1 (0.9-1.2) 10/09/16 23:38 APTT 48.4 Seconds (25.6-37.1) H 10/09/16 23:38 - Respiratory Exam Respiratory Exam: Clear to Ausculation Bilateral - Cardiovascular Exam Cardiovascular Exam: REGULAR RHYTHM, +S1, +S2 Assessment and Plan - Assessment and Plan (Free Text) Assessment: CAD-STABLE HYPERTENSION HYPERLIPIDEMIA COPD Plan: OK TO DISCHARGE PATIENT FROM CARDIAC [facility] CONTINUE PRESENT MEDICATIONS PATIENT TO FU WITH DR MAYLIN BONNER
== END 2016-10-15 12:54 | disposition home or self-care (01) | DRG 302 ==
LOC: H.ER 23:02 → H.ERHOLD 10-10 00:25 → H.TEL 10-10 02:22 → OBSVTOIN 10-11 22:53
PROVIDERS: ADMIT Internal Medicine; ATTEND Internal Medicine
DX: I25.119 Atherosclerotic heart disease of native coronary artery with unspecified angina pectoris (principal); I50.23 Acute on chronic systolic (congestive) heart failure; N17.9 Acute kidney failure, unspecified; I48.0 Paroxysmal atrial fibrillation; F03.90 Unspecified dementia, unspecified severity, without behavioral disturbance, psychotic disturbance, mood disturbance, and anxiety; E11.9 Type 2 diabetes mellitus without complications; D64.9 Anemia, unspecified; I25.5 Ischemic cardiomyopathy; I11.0 Hypertensive heart disease with heart failure; I48.2 Chronic atrial fibrillation; J44.9 Chronic obstructive pulmonary disease, unspecified; E03.9 Hypothyroidism, unspecified; E78.5 Hyperlipidemia, unspecified; E78.00 Pure hypercholesterolemia, unspecified; M19.90 Unspecified osteoarthritis, unspecified site; K29.70 Gastritis, unspecified, without bleeding; F17.200 Nicotine dependence, unspecified, uncomplicated; Z95.1 Presence of aortocoronary bypass graft; Z86.711 Personal history of pulmonary embolism; Z86.718 Personal history of other venous thrombosis and embolism; Z79.02 Long term (current) use of antithrombotics/antiplatelets; Z79.01 Long term (current) use of anticoagulants

== ENCOUNTER 2016-11-20 05:38 | Inpatient (IN) | payer MEDICARE, MEDICAID ==
[2016-11-20 05:38] VITALS: BMI 37.8
--- NOTE | 2016-11-20 06:21 | ED PDOC ---
HPI: Chest Pain Time Seen by Provider: 11/20/16 05:47 Chief Complaint (Nursing): Chest Pain Chief Complaint (Provider): Chest Pain History Per: Patient History/Exam Limitations: no limitations Onset/Duration Of Symptoms: Days (x 2) Current Symptoms Are (Timing): Still Present Additional Complaint(s): Kodi is an 89-year-old male with a past medical history of chronic anemia, diabetes, CAD, A Fib, CHF, COPD, and hypertension, who presents to the ED complaining of back and chest pain, onset 2 days ago. Took sublingual Nitro yesterday with minimal improvement, but woke up with symptoms again today. Patient denies taking aspirin today. Denies fever, cough, and all other medical complaints. Additionally, patient now reports having rectal bleeding for the past 2 days. Medication Specialist: Dr. Davis Past Medical History Reviewed: Historical Data, Nursing Documentation, Vital Signs Vital Signs: Last Vital Signs Temp 97.9 F 11/20/16 08:23 Pulse 84 11/20/16 08:23 Resp 18 11/20/16 08:23 BP 131/76 11/20/16 08:23 Pulse Ox 98 11/21/16 06:38 - Medical History PMH: Anemia, Arthritis, Atrial Fibrillation, CAD, Cardia Arrhythmia, CHF, COPD, Dementia, Diabetes (type II ), Diverticulitis, Deep Vein Thrombosis, Gastritis, Gall Bladder Disease, HTN, Hypercholesterolemia, Hyperlipidemia, Hypothyroidism , Pancreatitis, Peripheral Edema, Pulmonary Embolism Denies: HIV, Chronic Kidney Disease, Rheumatoid Arthritis - Surgical History Surgical History: CABG (quadruple CABG in 1993), Cholecystectomy - Family History Family History: States: Unknown Family Hx - Social History Current smoker - smoking cessation education provided: Yes (cigars) Alcohol: None Drugs: Denies - Home Medications Home Medications: Ambulatory Orders Medication Instructions Recorded Allopurinol 300 mg PO DAILY 01/09/15 Linagliptin [Tradjenta] 5 mg PO DAILY #1 tab 03/20/16 Albuterol Sulfate [Proair Hfa] 2 puff IH Q12H PRN 05/10/16 Carvedilol [Coreg] 3.125 mg PO Q12H #60 tab 06/29/16 Clopidogrel [Plavix] 75 mg PO DAILY #30 tab 06/29/16 Dabigatran [Pradaxa] 150 mg PO BID #60 cap 06/29/16 Dutasteride [Avodart] 0.5 mg PO DAILY #30 capsule 06/29/16 Levothyroxine [Synthroid] 50 mcg PO DAILY #30 tab 06/29/16 Tamsulosin [Flomax] 0.4 mg PO BID #60 cap 06/29/16 Tiotropium [Spiriva] 18 mcg IH DAILY #1 cap 06/29/16 Furosemide [Lasix] 40 mg PO DAILY 09/18/16 Isosorbide Mononitrate [Imdur] 60 mg PO DAILY 09/18/16 Nitroglycerin [Nitrostat SL Tab] 0.3 mg SL Q15MIN #60 tab.subl 10/15/16 Sacubitril/Valsartan [Entresto 24 1 tab PO BID #60 tablet 10/15/16 mg-26 mg] - Allergies Allergies/Adverse Reactions: Allergies Allergy/AdvReac Type Severity Reaction Status Date / Time No Known Allergies Allergy Verified 05/10/16 10:31 Review of Systems ROS Statement: Except As Marked, All Systems Reviewed And Found Negative Constitutional: Negative for: Fever Cardiovascular: Positive for: Chest Pain Respiratory: Negative for: Cough Gastrointestinal: Positive for: Other (Rectal bleeding) Musculoskeletal: Positive for: Back Pain Physical Exam - Reviewed Nursing Documentation Reviewed: Yes Vital Signs Reviewed: Yes - Physical Exam Appears: Positive for: Non-toxic, No Acute Distress Head Exam: Positive for: ATRAUMATIC, NORMAL INSPECTION, NORMOCEPHALIC Skin: Positive for: Normal Color, Warm, Dry Eye Exam: Positive for: EOMI, Normal appearance, PERRL Neck: Positive for: Normal, Painless ROM, Supple Cardiovascular/Chest: Positive for: Regular Rate, Rhythm. Negative for: Murmur Respiratory: Positive for: Normal Breath Sounds. Negative for: Accessory Muscle Use, Respiratory Distress Gastrointestinal/Abdominal: Positive for: Normal Exam, Soft. Negative for: Tenderness Back: Positive for: Normal Inspection. Negative for: Vertebral Tenderness Rectal: Positive for: Other (Guaiac-positive, reddish brown stool) Extremity: Positive for: Normal ROM. Negative for: Pedal Edema, Calf Tenderness , Deformity Neurologic/Psych: Positive for: Alert, Oriented. Negative for: Motor/Sensory Deficits - Laboratory Results Result Diagrams: 11/20/16 06:22 11/20/16 06:22 - ECG ECG: Positive for: Interpreted By Me, Viewed By Me Interpretation Of Abn EKG: PACs, left axis deviation, rate at 80 bpm, right bundle branch block O2 Sat by Pulse Oximetry: 98 (RA) Pulse Ox Interpretation: Normal Medical Decision Making Medical Decision Making: Time: 06:16 Initial Impression: Chest Pain, also rule out GI bleed Initial Plan: --Labs --CXR --EKG --Aspirin 325 mg PO --Nitro .4 mg SL --Pending reevaluation Time: 06:41 --Hold Aspirin due to positive Guaiac --Of note, patient has history of GI bleeds --Due to rectal exam findings, will r/o GI bleed --Protonix 40 mg IV --Labs reviewed, patient is anemic --Troponin negative Time: 06:56 --Paged Dr. Davis, patient's limb driver Time: 07:00 --Discussed case with Dr. Davis, who recommends patient be admitted to hospitalist --Dr. Davis requested that patient see Dr. Mendes for GI work up while inpatient --Called hospitalist, who stated that patient is not theirs, and belongs to Dr. Allen --Dr. Allen did not call back and it is unclear if patient is a patient of Alej[facility] . Paging medicine on-call --Discussed case with Medicine on-call Dr. Haney, who is admitting patient for chest pain and GI bleed -consented pt for blood transfusion Scribe Attestation: Documented by Elvia Jose, acting as a scribe for Jessica Benjamin MD Provider Scribe Attestation: All medical record entries made by the Scribe were at my direction and personally dictated by me. I have reviewed the chart and agree that the record accurately reflects my personal performance of the history, physical exam, medical decision making, and the department course for this patient. I have also personally directed, reviewed, and agree with the discharge instructions and disposition. Disposition - Clinical Impression Clinical Impression: Chest pain, GI bleed - Patient ED Disposition Is Patient to be Admitted: Yes - Disposition Disposition Time: 07:00 Condition: GUARDED
[2016-11-20 06:25] LABS: BASO # 0.1 K/uL (0.0-0.2); BASO % 0.7 % (0.0-2.0); EOS # 0.2 K/uL (0.0-0.7); EOS % 2.1 % (0.0-4.0); HEMOGLOBIN 8.6 g/dL (12.0-18.0); LYMPH # 1.3 K/uL (1.0-4.3); LYMPH % 18.3 % (20.0-40.0); MEAN CELL VOLUME 90.9 fl (80.0-94.0); MEAN CORPUSCULAR HEMOGLOBIN 30.5 pg (27.0-31.0); MEAN CORPUSCULAR HGB CONC 33.6 g/dL (33.0-37.0); MEAN PLATELET VOLUME 8.8 fl (7.2-11.7); MONO # 0.6 K/uL (0.0-0.8); MONO % 8.6 % (0.0-10.0); NEUT # 5.2 K/uL (1.8-7.0); NEUT % 70.3 % (50.0-75.0); RBC 2.83 Mil/uL (4.40-5.90); WHITE BLOOD COUNT 7.4 K/uL (4.8-10.8)
[2016-11-20 06:35] LABS: ALB/GLOB RATIO 1.3 (1.0-2.1); ALBUMIN 3.3 g/dL (3.5-5.0); ALT/SGPT 29 U/L (21-72); AST/SGOT 23 U/L (17-59); BLOOD UREA NITROGEN 18 mg/dl (9-20); GFR AFRICAN-AMERICAN > 60; GFR NON-AFRICAN AMERICAN 57
[2016-11-20 06:43] LABS: B-TYPE NATRIURETIC PEPTIDE 593 pg/ml (0-900)
[2016-11-20 06:49] LABS: INR 1.4 (0.9-1.2); PARTIAL THROMBOPLASTIN TIME 51.8 Seconds (25.6-37.1); PROTHROMBIN TIME 14.5 Seconds (9.8-13.1)
[2016-11-20] MEDS ORDERED: Sodium Chloride 0.9% 1,000 ML IV SCH (08:00)
[2016-11-20 08:24] VITALS: BP 131/76; PULSE 84; RESP 18; TEMP 97.9
--- NOTE | 2016-11-20 10:35 | CARD ---
APPROVED REPORT EKG Measurement Heart [id number] <Conclusion> Sinus rhythm with premature atrial complexes Left axis deviation Right bundle branch block Abnormal ECG
--- NOTE | 2016-11-20 11:07 | RAD ---
PROCEDURE: CHEST RADIOGRAPH, 1 VIEW HISTORY: Chest pain COMPARISON: 10/09/2016. FINDINGS: LUNGS: The lungs are well inflated and clear. PLEURA: No pneumothorax or pleural fluid seen. CARDIOVASCULAR: There is mild cardiomegaly. Atherosclerotic aortic arch calcifications are present. Status post CABG. OSSEOUS STRUCTURES: No significant abnormalities. VISUALIZED UPPER ABDOMEN: Normal. OTHER FINDINGS: None. IMPRESSION: No active pulmonary disease.
[2016-11-21 06:39] VITALS: O2SAT 98
== END 2016-11-20 09:40 | disposition left against medical advice (07) | DRG 313 ==
LOC: H.ER 05:38 → H.ERHOLD 07:25
PROVIDERS: ADMIT Internal Medicine; ATTEND Internal Medicine
DX: R07.9 Chest pain, unspecified (principal); I25.10 Atherosclerotic heart disease of native coronary artery without angina pectoris; I50.9 Heart failure, unspecified; I11.0 Hypertensive heart disease with heart failure; F03.90 Unspecified dementia, unspecified severity, without behavioral disturbance, psychotic disturbance, mood disturbance, and anxiety; K92.2 Gastrointestinal hemorrhage, unspecified; I48.91 Unspecified atrial fibrillation; J44.9 Chronic obstructive pulmonary disease, unspecified; Z95.1 Presence of aortocoronary bypass graft; F17.200 Nicotine dependence, unspecified, uncomplicated; E78.5 Hyperlipidemia, unspecified; E78.00 Pure hypercholesterolemia, unspecified; E11.9 Type 2 diabetes mellitus without complications; E03.9 Hypothyroidism, unspecified

== ENCOUNTER 2016-11-22 09:05 | Inpatient (IN) | payer MEDICARE, MEDICAID ==
[2016-11-22 09:05] VITALS: BMI 37.8
[2016-11-22 09:57] LABS: BASO % 0.5 % (0.0-2.0); EOS # 0.1 K/uL (0.0-0.7); EOS % 1.7 % (0.0-4.0); HEMATOCRIT 23.1 % (35.0-51.0); LYMPH # 1.2 K/uL (1.0-4.3); LYMPH % 17.6 % (20.0-40.0); MEAN CELL VOLUME 90.9 fl (80.0-94.0); MEAN CORPUSCULAR HEMOGLOBIN 30.9 pg (27.0-31.0); MEAN PLATELET VOLUME 8.9 fl (7.2-11.7); MONO # 0.5 K/uL (0.0-0.8); MONO % 6.9 % (0.0-10.0); NEUT # 5.1 K/uL (1.8-7.0); NEUT % 73.3 % (50.0-75.0); RED CELL DISTRIBUTION WIDTH 15.3 % (11.5-14.5); WHITE BLOOD COUNT 6.9 K/uL (4.8-10.8)
[2016-11-22 10:09] LABS: ALB/GLOB RATIO 1.3 (1.0-2.1); ALKALINE PHOSPHATASE 70 U/L (38-126); ALT/SGPT 31 U/L (21-72); AST/SGOT 25 U/L (17-59); BILIRUBIN,TOTAL 0.4 mg/dl (0.2-1.3); BLOOD UREA NITROGEN 20 mg/dl (9-20); CALCIUM 8.9 mg/dL (8.4-10.2); CARBON DIOXIDE 24 mmol/L (22-30); CHLORIDE 105 mmol/L (98-107); GFR AFRICAN-AMERICAN > 60; GLUCOSE,RANDOM 224 mg/dL (75-110); POTASSIUM 4.6 MMOL/L (3.6-5.0); SODIUM 136 mmol/l (132-148); TOTAL PROTEIN 5.7 G/DL (6.3-8.2)
--- NOTE | 2016-11-22 12:18 | ED PDOC ---
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 Was due to be admitted several days ago but signed AMA. Denies hematemesis, syncope or fever. Had rectal bleeding several days ago. Past Medical History Vital Signs: Last Vital Signs Temp 97 F L 11/22/16 09:25 Pulse 81 11/22/16 09:28 Resp 16 11/22/16 09:25 BP 130/64 11/22/16 09:25 Pulse Ox 100 11/22/16 12:51 - Medical History PMH: Anemia, Arthritis, Atrial Fibrillation, CAD, Cardia Arrhythmia, CHF, COPD, Dementia, Diabetes (type II ), Diverticulitis, Deep Vein Thrombosis, Gastritis, Gall Bladder Disease, HTN, Hypercholesterolemia, Hyperlipidemia, Hypothyroidism , Pancreatitis, Peripheral Edema, Pulmonary Embolism Denies: HIV, Chronic Kidney Disease, Rheumatoid Arthritis - Surgical History Surgical History: CABG (quadruple CABG in 1993), Cholecystectomy - Family History Family History: States: Unknown Family Hx - Home Medications Home Medications: Ambulatory Orders Medication Instructions Recorded Allopurinol 300 mg PO DAILY 01/09/15 Linagliptin [Tradjenta] 5 mg PO DAILY #1 tab 03/20/16 Albuterol Sulfate [Proair Hfa] 2 puff IH Q12H PRN 05/10/16 Carvedilol [Coreg] 3.125 mg PO Q12H #60 tab 06/29/16 Dabigatran [Pradaxa] 150 mg PO BID #60 cap 06/29/16 Dutasteride [Avodart] 0.5 mg PO DAILY #30 capsule 06/29/16 Levothyroxine [Synthroid] 50 mcg PO DAILY #30 tab 06/29/16 Tamsulosin [Flomax] 0.4 mg PO BID #60 cap 06/29/16 Tiotropium [Spiriva] 18 mcg IH DAILY #1 cap 06/29/16 Furosemide [Lasix] 40 mg PO DAILY 09/18/16 Nitroglycerin [Nitrostat SL Tab] 0.3 mg SL Q15MIN #60 tab.subl 10/15/16 Sacubitril/Valsartan [Entresto 24 1 tab PO BID #60 tablet 10/15/16 mg-26 mg] Isosorbide Mononitrate [Imdur] 30 mg PO DAILY 11/22/16 - Allergies Allergies/Adverse Reactions: Allergies Allergy/AdvReac Type Severity Reaction Status Date / Time No Known Allergies Allergy Verified 11/22/16 09:25 Physical Exam - Reviewed Vital Signs Reviewed: Yes - Physical Exam Appears: Positive for: Well, Non-toxic, No Acute Distress Head Exam: Positive for: ATRAUMATIC, NORMAL INSPECTION, NORMOCEPHALIC Skin: Positive for: Pallor Eye Exam: Positive for: Normal appearance, EOMI, PERRL. Negative for: Conjunctival injection ENT: Positive for: Normal ENT Inspection Neck: Positive for: Normal, Painless ROM Cardiovascular/Chest: Positive for: Regular Rate, Rhythm Respiratory: Positive for: Decreased Breath Sounds Gastrointestinal/Abdominal: Positive for: Bowel Sounds, Soft. 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 Negative for: Motor/Sensory Deficits - Laboratory Results Result Diagrams: 11/22/16 09:51 11/22/16 09:51 - ECG O2 Sat by Pulse Oximetry: 100 Medical Decision Making Medical Decision Making: labs reviewed, reveal worsening anemia now w Hgb <8.0, down from 2 days ago. CXR report from 2 days prior reviewed, negative. trop neg. Hold ASA due to anemia, possible GI bleed. Admit Dr Allen, who saw patient in ED. Consent for PRBC obtained via department administrator Iron studies added on prior to PRBC. Disposition - Clinical Impression Clinical Impression: Chest pain, Anemia, GI bleed - Patient ED Disposition Is Patient to be Admitted: Yes Counseled Patient/Family Regarding: Studies Performed, Diagnosis - Disposition Disposition Time: 12:05 Condition: FAIR - Pt Status Changed To: Hospital Disposition Of: Inpatient - Admit Certification Admit to Inpatient:: After my assessment, the patient will require hospitalization for at least two midnights. This is because of the severity of symptoms shown, intensity of services needed, and/or the medical risk in this patient being treated as an outpatient. - POA Present On Arrival: None
[2016-11-22 15:52] LABS: IRON 18 ug/dL (49-181)
--- NOTE | 2016-11-22 15:55 | RAD ---
HISTORY: chest pain/ r/o infiltrate COMPARISON: Chest x-ray performed 11/20/16 TECHNIQUE: Chest PA and lateral FINDINGS: LUNGS: No focal consolidation. Please note that chest x-ray has limited sensitivity for the detection of pulmonary masses. PLEURA: No significant pleural effusion identified. No definite pneumothorax . CARDIOVASCULAR: Median sternotomy wires with evidence of CABG. Heart size appears within normal limits. Dense atherosclerotic calcifications of the aortic knob. OSSEOUS STRUCTURES: Osseous demineralization. Degenerative changes. VISUALIZED UPPER ABDOMEN: Unremarkable. OTHER FINDINGS: None. IMPRESSION: No acute findings identified. See above.
--- NOTE | 2016-11-22 16:52 | CARD ---
APPROVED REPORT EKG Measurement Heart [id number] <Conclusion> Sinus rhythm with premature supraventricular complexes Left axis deviation Right bundle branch block Abnormal ECG
[2016-11-22] MEDS ORDERED: Patient's Own Med (Albuterol Sulfate 2 PUFF) IH PRN (20:16)
[2016-11-22] MEDS ORDERED: NITROGLYCERIN 0.3 MG SL SCH (20:30)
[2016-11-22] MEDS ORDERED: Albuterol HFA 90 mcg/actuation (8 g) INH PRN (23:14)
[2016-11-23 07:58] LABS: MEAN CORPUSCULAR HEMOGLOBIN 29.9 pg (27.0-31.0); MEAN CORPUSCULAR HGB CONC 33.2 g/dL (33.0-37.0); RED CELL DISTRIBUTION WIDTH 15.3 % (11.5-14.5); WHITE BLOOD COUNT 8.6 K/uL (4.8-10.8)
[2016-11-23] MEDS ORDERED: Patient's Own Med (Sacubitril/Valsartan [Entresto 24 Mg-26 Mg] 1 TAB) PO SCH (09:00)
[2016-11-23] MEDS ORDERED: Patient's Own Med (Linagliptin [Tradjenta] 5 MG) PO SCH (09:00)
[2016-11-23] MEDS: Levothyroxine 50 MCG TAB PO SCH (09:29)
--- NOTE | 2016-11-23 11:22 | IP.NPCORE ---
Heart Failure Core Measure - Heart Failure Ejection Fraction: 40 % or Greater (echo 10/22)
[2016-11-23] MEDS: Tiotropium 18 mcg Cap For Inhalation IH SCH (12:53)
[2016-11-23 13:45] LABS: FOLATE > 20.0 ng/mL
--- NOTE | 2016-11-24 04:24 | CON ---
DATE: 11/23/2016 HISTORY OF PRESENT ILLNESS: This is an 89-year-old male well known to my service with complicated cardiac history and GI history as well, comes in with gastric right-sided chest pain as well. 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 From my standpoint, he was called for some blood in stool, dizziness, chest pain, and chest discomfort. Currently lying in bed, comfortable and wants to go home. PAST MEDICAL HISTORY: Includes anemia, arthritis, Afib, CAD, cardiac arrhythmias, CHF, COPD, diabetes, DVT, hypertension, hypercholesterolemia, hyperlipidemia, hypothyroidism, and pulmonary embolism. SURGICAL HISTORY: Quadruple bypass, cholecystectomy. REVIEW OF SYSTEMS: Had been reviewed and negative apart from HPI. PHYSICAL EXAMINATION: VITAL SIGNS: In the hospital, grossly unremarkable. GENERAL: Pleasant elderly male lying in the bed comfortably, no apparent distress. HEENT: Normocephalic, atraumatic. Eyes; pupils are equal and reactive to light bilaterally. No conjunctival pallor or icterus. NECK: Supple. Normal range of motion. No lymphadenopathy appreciated. LUNGS: Coarse breath sounds bilaterally. HEART: S1 and S2, regular rate and rhythm. No murmurs appreciated. ABDOMEN: Soft, nontender. Bowel sounds present. No rebound and no guarding. RECTAL: Deferred. EXTREMITIES: Pulses felt bilaterally. SKIN: Warm, dry, and intact. NEUROLOGICAL: A and O x3. LABORATORY DATA: All labs have been reviewed. Hemoglobin 7.3, hematocrit 31 currently, her WBCs are normal. Sugars are 219. Troponin negative x2. ASSESSMENT AND PLAN: This is an 89-year-old with rectal bleeding, anemia, and chest pain. From GI standpoint clinically and from cardiology standpoint, I am not sure if he is safe for any elective procedures. At this point, he is doing well with no bleeding, doing well, his hemoglobin is well and wants to go home. He was AMA couple of days ago from the ER and is back with the same problem. Advance diet as tolerated. Transfuse as needed. PPI twice a day. We recommend endo and/or colon if urgent or emergent, so now we would consider cardiac clearance. Thank you for the consult. Rj Mendes MD/ PhD cc: Dr. Allen. KAYLEEN
--- NOTE | 2016-11-24 06:23 | PN ---
DATE: 11/23/2016 SUBJECTIVE: Patient is seen today, 11/23/2016. Patient still has exertional shortness of breath, status post 2 units of packed RBCs transfusion. PHYSICAL EXAMINATION VITAL SIGNS: Blood pressure 115/65, temperature 97.6, respiratory rate 18, and pulse 73. HEENT: Pale mucosa of the conjunctivae. NECK: Supple. No JVD. No carotid bruit. No lymph node. No thyromegaly. CHEST AND LUNGS: Bilateral symmetrical expansion. Good air exchange. No rales. No rhonchi. CARDIOVASCULAR: PMI not localized. S1 and S2. No additional sounds. ABDOMEN: Normoactive bowel sounds. No tenderness. No organomegaly. No masses. EXTREMITIES: No cyanosis. No clubbing. No edema. CENTRAL NERVOUS SYSTEM: Alert, awake, and oriented x2. No neurological deficit could be appreciated. ASSESSMENT: 1. Symptomatic anemia with exertional shortness of breath 2. Coronary artery disease. 3. Congestive heart failure on top of diastolic and systolic heart failure. 4. Hypertension. PLAN: We will consult both GI and cardiology regarding the decision about Pradaxa the patient has been on for paroxysmal atrial fibrillation. Continue current medications for now. Inderjit Allen MD
[2016-11-24] MEDS: Levothyroxine 50 MCG TAB PO SCH (06:53)
[2016-11-24 08:13] LABS: HEMATOCRIT 29.2 % (35.0-51.0); MEAN CELL VOLUME 89.4 fl (80.0-94.0); MEAN CORPUSCULAR HGB CONC 33.6 g/dL (33.0-37.0); WHITE BLOOD COUNT 7.4 K/uL (4.8-10.8)
[2016-11-24 08:19] LABS: BLOOD UREA NITROGEN 21 mg/dl (9-20); CALCIUM 9.2 mg/dL (8.4-10.2); CARBON DIOXIDE 25 mmol/L (22-30); CHLORIDE 104 mmol/L (98-107); GFR AFRICAN-AMERICAN > 60; GLUCOSE,RANDOM 137 mg/dL (75-110); POTASSIUM 4.4 MMOL/L (3.6-5.0); SODIUM 136 mmol/l (132-148)
[2016-11-24] MEDS: Tiotropium 18 mcg Cap For Inhalation IH SCH (09:14)
--- NOTE | 2016-11-24 13:39 | CP.PCM.PN ---
Subjective - Date & Time of Evaluation Date of Evaluation: 11/24/16 Time of Evaluation: 13:33 - Subjective Subjective: doing well today denies any BM's thus far today Hgb- 9.8 PE: vss afebrile abd - soft with +BS NT/ND imp/plan : Pradaxa on hold with apparent cessation of GI bleeding repeat labs in am Objective - Vital Signs/Intake and Output Vital Signs (last 24 hours): Temp Pulse Resp BP Pulse Ox 97.5 F L 69 18 117/60 100 11/24/16 12:56 11/24/16 12:56 11/24/16 12:56 11/24/16 12:56 11/24/16 12:56 - Medications Medications: Current Medications Albuterol (Ventolin Hfa 90 Mcg/Actuation (8 G)) 2 puff INH BID PRN PRN Reason: Shortness of Breath Allopurinol (Zyloprim) 300 mg PO DAILY [facility] Last Admin: 11/24/16 09:14 Dose: 300 mg Aspirin (Ecotrin) 81 mg PO DAILY [facility] Carvedilol (Coreg) 3.125 mg PO Q12H [facility] Last Admin: 11/24/16 09:14 Dose: 3.125 mg Cyanocobalamin (Vitamin B12 1000 Mcg Tab) 1,000 mcg PO DAILY [facility] Last Admin: 11/24/16 09:14 Dose: 1,000 mcg Dabigatran (Pradaxa) 150 mg PO BID [facility] PRN Reason: Protocol Famotidine (Pepcid) 20 mg PO BID [facility] Ferrous Sulfate (Feosol) 325 mg PO BID [facility] Last Admin: 11/24/16 09:14 Dose: 325 mg Furosemide (Lasix) 40 mg PO DAILY [facility] Last Admin: 11/24/16 09:18 Dose: 40 mg Home Med (Dutasteride [Avodart]) 0.5 mg PO DAILY [facility] Home Med (Nitroglycerin [Nitrostat Sl Tab]) 0.3 mg SL Q15MIN [facility] Home Med (Sacubitril/Valsartan [Entresto 24 Mg-26 Mg]) 1 tab PO BID [facility] Isosorbide Mononitrate (Imdur) 30 mg PO DAILY [facility] Last Admin: 11/24/16 09:14 Dose: 30 mg Levothyroxine Sodium (Synthroid) 50 mcg PO ACB [facility] Last Admin: 11/24/16 06:53 Dose: 50 mcg Sitagliptin Phosphate (Januvia) 100 mg PO DAILY [facility] Last Admin: 11/24/16 09:14 Dose: 100 mg Tamsulosin HCl (Flomax) 0.4 mg PO BID [facility] Last Admin: 11/24/16 09:14 Dose: 0.4 mg Tiotropium [place] (Spiriva) 18 mcg IH DAILY [facility] Last Admin: 11/24/16 09:14 Dose: 18 mcg - Labs Labs: 11/24/16 06:00 11/24/16 06:00
--- NOTE | 2016-11-25 03:45 | PN ---
DATE: 11/24/2016 SUBJECTIVE: The patient is seen today, 11/24/2016. He still has exertional shortness of breath, status post transfusion of 2 units of packed RBC. Hemoglobin today is 9.8, hematocrit 29.2 and stool for occult blood is positive. Pradaxa was held. PHYSICAL EXAMINATION VITAL SIGNS: Blood pressure is 117/60, temperature 97.5, respiratory rate 20, and pulse 69. HEENT: Pupils are equal and reactive to light. Normal-appearing mucosa of the conjunctivae, oropharynx, and nasal membrane mucosa. NECK: Supple. No JVD. No carotid bruit. No lymph node. No thyromegaly. CHEST AND LUNGS: Bilaterally symmetrical expansion. Good air exchange. No rales. No rhonchi. CARDIOVASCULAR SYSTEM: PMI not localized. S1 and S2. No additional sounds. ABDOMEN: Normoactive bowel sounds. No tenderness. No organomegaly. No masses. EXTREMITIES: No cyanosis. No clubbing. No edema. CENTRAL NERVOUS SYSTEM: Alert, awake, and oriented x2. No neurological deficit could be appreciated. ASSESSMENT: Anemia of acute blood loss with hemoglobin came up to 10.3 and down to 9.8; history of congestive heart failure, both systolic and diastolic; history of coronary artery disease, type 2 diabetes mellitus, hypertension. PLAN: Discussed the patient's condition with the glued wood tester and gallery or museum technician. Decision was to hold Pradaxa and keep patient on aspirin and Pepcid and repeat his hemoglobin and hematocrit in the morning. If it is stable, we will discharge patient home to follow as an outpatient. Inderjit Allen MD
[2016-11-25] MEDS: Levothyroxine 50 MCG TAB PO SCH (06:55)
[2016-11-25 08:11] LABS: HEMATOCRIT 30.7 % (35.0-51.0); MEAN CELL VOLUME 89.4 fl (80.0-94.0); MEAN CORPUSCULAR HEMOGLOBIN 30.2 pg (27.0-31.0); MEAN CORPUSCULAR HGB CONC 33.8 g/dL (33.0-37.0); RED CELL DISTRIBUTION WIDTH 14.8 % (11.5-14.5); WHITE BLOOD COUNT 7.6 K/uL (4.8-10.8)
[2016-11-25 08:39] VITALS: BP 128/56; RESP 18; TEMP 98; O2SAT 95
[2016-11-25] MEDS: Tiotropium 18 mcg Cap For Inhalation IH SCH (08:39)
[2016-11-25 10:56] VITALS: PULSE 78
--- NOTE | 2016-11-26 09:21 | HP ---
HISTORY OF PRESENT ILLNESS: This is an 89-year-old male with history of multiple medical problems including dilated cardiomyopathy, congestive heart failure, who presents to the emergency room with symptoms of progressive shortness of breath. The patient was evaluated in the emergency room where he was found to have a hemoglobin of . Subsequently, the patient was admitted for further management after type and cross. The patient initially was getting bed rest. The patient was chosen to admit to telemetry floor for further management. The patient admits that he is compliant to his medications. The patient is taking Pradaxa 150 mg twice a day due to underlying atrial fibrillation. OTHER REVIEW OF SYSTEMS: Negative. ALLERGIES: NO KNOWN ALLERGIES. HOME MEDICATIONS: Pradaxa 150 mg twice a day, Spiriva 18 mcg inhaler daily, tamsulosin 0.4 mg b.i.d., Entresto 24/26 twice a day, nitroglycerin sublingual, Tradjenta 5 mg daily, Synthroid 50 mcg daily mg daily, Avodart 0.5 mg daily. PAST MEDICAL HISTORY: Hypothyroidism, congestive heart failure, hypertension, and type 2 diabetes mellitus. FAMILY HISTORY: Noncontributory. PHYSICAL EXAMINATION: GENERAL: The patient is in bed comfortable, not in any cardiopulmonary distress. VITAL SIGNS: Blood pressure 152/69, temperature 97.4, respiratory rate 16 and pulse 80. HEENT: Pupils equal and reactive to light. Normal appearing mucosa of the conjunctivae, oropharyngeal and nasal membrane mucosa. NECK: Supple. No JVD. No carotid bruits. No lymph node. No thyromegaly. CHEST: Lungs bilateral symmetrical expansion. Good air exchange. No rales. No rhonchi. CARDIOPULMONARY: PMI not localized. S1 and S2. No additional sounds. ABDOMEN: Normoactive bowel sounds. No tenderness. No organomegaly. No masses. EXTREMITIES: No cyanosis, no clubbing, no edema. CENTRAL NERVOUS SYSTEM: Alert, awake and oriented x2. No neurological deficit could be appreciated. ASSESSMENT: 1. Symptomatic anemia. 2. Congestive heart failure. 3. Hypertension. PLAN: Continue transfusion with 2 units of packed RBCs. We will resume the patient's home medications. We will obtain therapeutic options and will have daily therapies. Sameh MD Alejandro [facility] # [id number]
--- NOTE | 2016-12-03 09:40 | DS ---
REASON FOR ADMISSION: This is an 89-year-old male with history of multiple medical problems who was admitted for symptomatic anemia. COURSE OF HOSPITALIZATION: The patient was transfused 2 units of packed RBCs that was started in the emergency room. The patient had a stool occult blood positive. Pradaxa was stopped after consulting with the patient's cardiology, Dr. Davis as well as gastroenterology. The patient was explained the risk of giving anticoagulant outweigh the benefits at this point. The patient was discharged home to continue the aspirin and Pepcid 20 mg twice a day and to followup with me as well as with his cardiology in two weeks. FINAL DIAGNOSES: 1. Anemia of acute blood loss. 2. Symptomatic anemia. 3. Gastrointestinal bleeding in the form of occult stool positive. 4. Coronary artery disease. 5. Hypertension. 6. Type 2 diabetes mellitus. Inderjit Allen MD
== END 2016-11-25 10:48 | disposition home or self-care (01) | DRG 812 ==
LOC: H.ER 09:05 → H.ERHOLD 12:10 → H.TEL 18:08
PROVIDERS: ADMIT Internal Medicine; ATTEND Internal Medicine
PROC: 30233N1 Transfusion of Nonautologous Red Blood Cells into Peripheral Vein, Percutaneous Approach (ICD-10-PCS; principal; 2016-11-22)
DX: D62 Acute posthemorrhagic anemia (principal); I50.42 Chronic combined systolic (congestive) and diastolic (congestive) heart failure; I42.0 Dilated cardiomyopathy; I11.0 Hypertensive heart disease with heart failure; F03.90 Unspecified dementia, unspecified severity, without behavioral disturbance, psychotic disturbance, mood disturbance, and anxiety; K62.5 Hemorrhage of anus and rectum; I48.0 Paroxysmal atrial fibrillation; E11.9 Type 2 diabetes mellitus without complications; I25.10 Atherosclerotic heart disease of native coronary artery without angina pectoris; J44.9 Chronic obstructive pulmonary disease, unspecified; K29.70 Gastritis, unspecified, without bleeding; E03.9 Hypothyroidism, unspecified; E78.5 Hyperlipidemia, unspecified; M19.90 Unspecified osteoarthritis, unspecified site; E78.00 Pure hypercholesterolemia, unspecified; Z95.1 Presence of aortocoronary bypass graft; Z86.711 Personal history of pulmonary embolism; Z79.01 Long term (current) use of anticoagulants; Z86.718 Personal history of other venous thrombosis and embolism

== ENCOUNTER 2017-06-02 17:08 | Inpatient (IN) | payer MEDICARE, MEDICAID ==
[2017-06-02] MEDS ORDERED: Sodium Chloride 0.9% 500 ML IV STA (17:30)
--- NOTE | 2017-06-02 17:35 | ED PDOC ---
HPI: Chest Pain Time Seen by Provider: 06/02/17 17:21 Chief Complaint (Nursing): Chest Pain Chief Complaint (Provider): Chest Pain History Per: Patient History/Exam Limitations: no limitations Onset/Duration Of Symptoms: Hrs (x5) Additional Complaint(s): Kodi Melgar is an 89 year old male with a history of A-fib, CAD, CHF, hypertension, diabetes, and high cholesterol that presents to the ED with a chief complaint of right-sided chest pain associated with shortness of breath that he states began at 12 PM today. Patient additionally reports bright red stools that began this morning. He denies any headache, dizziness, vision changes, abdominal pain, leg pain, numbness, or tingling. Patient took Nitroglycerin, for which he has a prescription, at home, and was given Aspirin 324 mg by EMS prior to arrival, reports that he is currently pain free. Of Note: Patient also presents with swollen left knee, which he states he has had for the past three days. He reports that it was evaluated, and that he was diagnosed with gout. Bag Filler: Dr. Davis Past Medical History Reviewed: Historical Data, Nursing Documentation, Vital Signs Vital Signs: Last Vital Signs Temp 98 F 06/02/17 17:11 Pulse 88 06/02/17 17:25 Resp 21 06/02/17 17:11 BP 168/76 H 06/02/17 17:11 Pulse Ox - Medical History PMH: Anemia, Arthritis, Atrial Fibrillation, CAD, Cardia Arrhythmia, CHF, COPD, Dementia, Diabetes (type II ), Diverticulitis, Deep Vein Thrombosis, Gastritis, Gall Bladder Disease, HTN, Hypercholesterolemia, Hyperlipidemia, Hypothyroidism , Pancreatitis, Peripheral Edema, Pneumonia, Pulmonary Embolism Denies: HIV, Chronic Kidney Disease, Rheumatoid Arthritis - Surgical History Surgical History: CABG (quadruple CABG in 1993), Cholecystectomy - Family History Family History: States: Unknown Family Hx - Social History Current smoker - smoking cessation education provided: Yes (patient smokes cigars) - Home Medications Home Medications: Ambulatory Orders Medication Instructions Recorded Linagliptin [Tradjenta] 5 mg PO DAILY #1 tab 03/20/16 Albuterol Sulfate [Proair Hfa] 2 puff IH Q12H PRN 05/10/16 Albuterol HFA [Ventolin HFA 90 2 puff INH BID PRN inhaler 11/25/16 mcg/actuation (8 g)] Allopurinol [Zyloprim] 300 mg PO DAILY tab 11/25/16 Aspirin [Ecotrin] 81 mg PO DAILY 11/25/16 Carvedilol [Coreg] 3.125 mg PO Q12H tab 11/25/16 Cyanocobalamin [Vitamin B12 1000 1,000 mcg PO DAILY tab 11/25/16 mcg Tab] Dutasteride [Avodart] 0.5 mg PO DAILY 11/25/16 Famotidine [Pepcid] 20 mg PO BID #60 tab 11/25/16 Ferrous Sulfate [Feosol] 325 mg PO BID tab 11/25/16 Isosorbide Mononitrate ER [Imdur 30 mg PO DAILY tab 11/25/16 ER] Levothyroxine [Synthroid] 50 mcg PO ACB tab 11/25/16 Nitroglycerin [Nitrostat SL Tab] 0.3 mg SL Q15MIN 11/25/16 SITagliptin [Januvia] 100 mg PO DAILY tab 11/25/16 Sacubitril/Valsartan [Entresto 24 1 tab PO BID 11/25/16 mg-26 mg] Tamsulosin [Flomax] 0.4 mg PO BID cap 11/25/16 Tiotropium [Spiriva] 18 mcg IH DAILY cap 11/25/16 Levofloxacin [Levaquin] 750 mg PO DAILY #5 tablet 02/11/17 - Allergies Allergies/Adverse Reactions: Allergies Allergy/AdvReac Type Severity Reaction Status Date / Time No Known Allergies Allergy Verified 06/02/17 17:18 Review of Systems ROS Statement: Except As Marked, All Systems Reviewed And Found Negative Eyes: Negative for: Vision Change Cardiovascular: Positive for: Chest Pain (right-sided) Respiratory: Positive for: Shortness of Breath Gastrointestinal: Positive for: Hematochezia. Negative for: Abdominal Pain Musculoskeletal: Positive for: Other ((+) swollen left knee). Negative for: Leg Pain Neurological: Negative for: Numbness, Headache, Dizziness, Other (denies tingling) Physical Exam - Reviewed Nursing Documentation Reviewed: Yes Vital Signs Reviewed: Yes - Physical Exam Appears: Positive for: Non-toxic, No Acute Distress Head Exam: Positive for: ATRAUMATIC, NORMOCEPHALIC Skin: Positive for: Normal Color Eye Exam: Positive for: Normal appearance, EOMI, PERRL Neck: Positive for: Normal, Supple Cardiovascular/Chest: Positive for: Regular Rate, Rhythm. Negative for: Murmur Respiratory: Positive for: Normal Breath Sounds. Negative for: Wheezing Pulses-Dorsalis Pedis (L): 2+ Pulses-Dorsalis Pedis (R): 2+ Pulses-Post. Tibialis (L): 2+ Pulses-Post. Tibialis (R): 2+ Gastrointestinal/Abdominal: Positive for: Normal Exam, Soft. Negative for: Tenderness Rectal: Positive for: Normal Exam, Rectal Tone Is: (good), Other (No gross blood identified) Extremity: Positive for: Normal ROM (full ROM left knee), Tenderness (Mild tenderness to palpation inner thigh), Swelling (Mild swelling and ecchymosis to left knee), Other (Left inner thigh with ecchymosis) Neurologic/Psych: Positive for: Alert, Oriented. Negative for: Motor/Sensory Deficits - Laboratory Results Result Diagrams: 06/02/17 17:57 06/02/17 17:57 Interpretation Of Abn Labs: 10.2 hg - ECG ECG: Positive for: Interpreted By Me, Viewed By Me Interpretation Of Abn EKG: same as old; RBBB - Radiology X-Ray: Read By Radiologist X-Ray Interpretation: No Acute Disease - Progress ED Course And Treament: 1908: Stable. AAOx3. Spoke with Dr. Allen. Will admit tele. Will give further orders when pt. reaches floor. Medical Decision Making Medical Decision Making: Impression: Chest Pain Plan: * Chest X-Ray * EKG * CMP * CBC * PTT * PT * BNP * Troponin I * Type and Screen * NaCl 500 mLs at 100 mLs/hr * Reevaluation Chest X-Ray FINDINGS: LUNGS: Oneyear apical lordotic view is been submitted with no acute infiltrate identified bilaterally. CARDIOVASCULAR: Mild cardiomegaly again appreciated. No pulmonary vascular derangement at this time. Median sternotomy wires again seen. No pleural effusion or pneumothorax identified bilaterally. OSSEOUS STRUCTURES: No significant abnormalities. VISUALIZED UPPER ABDOMEN: Normal. OTHER FINDINGS: None. IMPRESSION: No acute cardiopulmonary disease appreciable. Stable cardiomegaly. Scribe Attestation: Documented by Sarahy Perry, acting as a scribe for Keyshawn Cornell MD. Provider Scribe Attestation: All medical record entries made by the Scribe were at my direction and personally dictated by me. I have reviewed the chart and agree that the record accurately reflects my personal performance of the history, physical exam, medical decision making, and the department course for this patient. I have also personally directed, reviewed, and agree with the discharge instructions and disposition. Disposition - Clinical Impression Clinical Impression: Atypical chest pain, Lower GI bleed - Patient ED Disposition Is Patient to be Admitted: Yes Counseled Patient/Family Regarding: Studies Performed, Diagnosis - Disposition Disposition Time: 19:09 Condition: FAIR - Pt Status Changed To: Hospital Disposition Of: Inpatient - Admit Certification Admit to Inpatient:: After my assessment, the patient will require hospitalization for at least two midnights. This is because of the severity of symptoms shown, intensity of services needed, and/or the medical risk in this patient being treated as an outpatient. - POA Present On Arrival: None
--- NOTE | 2017-06-02 17:53 | RAD ---
HISTORY: dyspnea COMPARISON: Chest radiographs 02/11/2017. FINDINGS: LUNGS: Oneyear apical lordotic view is been submitted with no acute infiltrate identified bilaterally. CARDIOVASCULAR: Mild cardiomegaly again appreciated. No pulmonary vascular derangement at this time. Median sternotomy wires again seen. No pleural effusion or pneumothorax identified bilaterally. OSSEOUS STRUCTURES: No significant abnormalities. VISUALIZED UPPER ABDOMEN: Normal. OTHER FINDINGS: None. IMPRESSION: No acute cardiopulmonary disease appreciable. Stable cardiomegaly.
[2017-06-02 18:10] LABS: BASO % 0.4 % (0.0-2.0); EOS # 0.2 K/uL (0.0-0.7); EOS % 1.8 % (0.0-4.0); HEMOGLOBIN 10.2 g/dL (12.0-18.0); LYMPH # 1.3 K/uL (1.0-4.3); LYMPH % 14.5 % (20.0-40.0); MEAN CELL VOLUME 97.2 fl (80.0-94.0); MEAN CORPUSCULAR HEMOGLOBIN 32.6 pg (27.0-31.0); MEAN CORPUSCULAR HGB CONC 33.6 g/dL (33.0-37.0); MEAN PLATELET VOLUME 8.3 fl (7.2-11.7); MONO # 0.6 K/uL (0.0-0.8); MONO % 7.1 % (0.0-10.0); NEUT # 6.6 K/uL (1.8-7.0); NEUT % 76.2 % (50.0-75.0); NRBC % 0.1 % (0.0-0.0); RBC 3.12 Mil/uL (4.40-5.90); RED CELL DISTRIBUTION WIDTH 14.7 % (11.5-14.5); WHITE BLOOD COUNT 8.7 K/uL (4.8-10.8)
[2017-06-02 18:21] LABS: INR 1.3 (0.9-1.2); PARTIAL THROMBOPLASTIN TIME 53.5 Seconds (25.6-37.1); PROTHROMBIN TIME 14.6 Seconds (9.8-13.1)
[2017-06-02 18:22] LABS: ALB/GLOB RATIO 1.2 (1.0-2.1); ALBUMIN 3.5 g/dL (3.5-5.0); CALCIUM 9.2 mg/dL (8.4-10.2)
[2017-06-02 18:34] LABS: TROPONIN I 0.024 ng/mL (0.00-0.120)
[2017-06-02] MEDS ORDERED: Morphine 4 MG/ML VIAL ONE (18:48)
[2017-06-02] MEDS ORDERED: Morphine 4 MG/ML VIAL IV ONE (19:00)
[2017-06-02] MEDS ORDERED: Dextrose 5%/0.45% NS 1,000 ML IV SCH (21:30)
[2017-06-02] MEDS ORDERED: NITROGLYCERIN 0.3 MG SL SCH (21:30)
--- NOTE | 2017-06-03 08:14 | IP.NPCORE ---
Heart Failure Core Measure - Heart Failure Ejection Fraction: 40 % or Greater (10/22 echo 50-55%)
[2017-06-03] MEDS: Pantoprazole 40 mg EC Tab PO SCH (08:54)
[2017-06-03] MEDS ORDERED: Patient's Own Med (Ranolazine [Ranexa] 500 MG) PO SCH (09:00)
[2017-06-03 09:20] LABS: HEMOGLOBIN 10.5 g/dL (12.0-18.0); MEAN CELL VOLUME 96.5 fl (80.0-94.0); MEAN CORPUSCULAR HEMOGLOBIN 33.3 pg (27.0-31.0); MEAN CORPUSCULAR HGB CONC 34.5 g/dL (33.0-37.0); RBC 3.16 Mil/uL (4.40-5.90); RED CELL DISTRIBUTION WIDTH 15.1 % (11.5-14.5); WHITE BLOOD COUNT 10.5 K/uL (4.8-10.8)
--- NOTE | 2017-06-03 18:41 | CP.PCM.CON ---
History of Present Illness - History of Present Illness History of Present Illness: 89 yo male admitted with lower GI bleeding. Pt reports constipation for several days then reports taking laxative which precipitated bleeding episode. Pt has had previous episodes of lower GI bleeding. PMH; CAD CABG, HTN, Diabetes type2, COPD, Atrial Fibrillation. Reported R sided chest pain atypical for ischemia. Large ecchymotic area L thigh , reports no fall or trauma Past Patient History - Infectious Disease Hx of Infectious Diseases: None - Tetanus Immunizations Tetanus Immunization: Unknown - Past Medical History & Family History Past Medical History?: Yes - Past Social History Smoking Status: half cigar - CARDIAC Hx Atrial Fibrillation: Yes Hx Cardia Arrhythmia: Yes Hx Congestive Heart Failure: Yes Hx Hypercholesterolemia: Yes Hx Hypertension: Yes Hx Peripheral Edema: Yes - PULMONARY Hx Chronic Obstructive Pulmonary Disease (COPD): Yes Hx Pneumonia: Yes Hx Pulmonary Embolism: Yes - NEUROLOGICAL Hx Dementia: Yes - HEENT Hx HEENT Problems: No - RENAL Hx Chronic Kidney Disease: No - ENDOCRINE/METABOLIC Hx Hypothyroidism: Yes - HEMATOLOGICAL/ONCOLOGICAL Hx AIDS: No Hx Anemia: Yes Hx Human Immunodeficiency Virus (HIV): No - INTEGUMENTARY Hx Dermatological Problems: No - MUSCULOSKELETAL/RHEUMATOLOGICAL Hx Arthritis: Yes Hx Falls: No Hx Rheumatoid Arthritis: No - GASTROINTESTINAL Hx Diverticulitis: Yes Hx Gall Bladder Disease: Yes Hx Gastritis: Yes Hx Pancreatitis: Yes - GENITOURINARY/GYNECOLOGICAL Hx Genitourinary Disorders: Yes Hx Prostate Problems: Yes - PSYCHIATRIC Hx Psychophysiologic Disorder: No Hx Substance Use: No - SURGICAL HISTORY Hx Cholecystectomy: Yes Hx Coronary Artery Bypass Graft: Yes (quadruple CABG in 1993) - ANESTHESIA Hx Anesthesia: Yes Hx Anesthesia Reactions: No Hx Malignant Hyperthermia: No Meds Allergies/Adverse Reactions: Allergies Allergy/AdvReac Type Severity Reaction Status Date / Time No Known Allergies Allergy Verified 06/02/17 17:18 - Medications Medications: Current Medications Acetaminophen (Tylenol 325mg Tab) 650 mg PO Q6 PRN PRN Reason: Pain, Mild (1-3) Last Admin: 06/02/17 21:56 Dose: 650 mg Carvedilol (Coreg) 6.25 mg PO DAILY [facility] Last Admin: 06/03/17 08:54 Dose: 6.25 mg Home Med (Dutasteride [Avodart]) 0.5 mg PO DAILY [facility] Pantoprazole Sodium (Protonix Ec Tab) 40 mg PO DAILY [facility] Last Admin: 06/03/17 08:54 Dose: 40 mg Zolpidem Tartrate (Ambien) 5 mg PO HS [facility] Last Admin: 06/02/17 22:08 Dose: 5 mg Physical Exam - Constitutional Appears: Well - Head Exam Head Exam: NORMAL INSPECTION - Neck Exam Neck exam: Positive for: Normal Inspection - Respiratory Exam Respiratory Exam: Clear to Auscultation Bilateral - Cardiovascular Exam Cardiovascular Exam: REGULAR RHYTHM - GI/Abdominal Exam GI & Abdominal Exam: Normal Bowel Sounds - Extremities Exam Additional comments: Ecchymosis left thigh Results - Vital Signs Recent Vital Signs: Last Vital Signs Temp 98.3 F 06/03/17 16:04 Pulse 78 06/03/17 16:04 Resp 20 06/03/17 16:04 BP 160/83 H 06/03/17 16:04 Pulse Ox 100 06/03/17 16:04 - Labs Result Diagrams: 06/03/17 09:05 06/02/17 17:57 Labs: Laboratory Results - last 24 hr 06/02/17 06/02/17 06/02/17 17:45 17:45 21:41 WBC RBC Hgb Hct MCV MCH MCHC RDW Plt Count POC Glucose (mg/dL) 155 H Stool Occult Blood Positive H Blood Type O POSITIVE Antibody Screen Negative 06/03/17 06/03/17 06/03/17 05:24 09:05 10:59 WBC 10.5 RBC 3.16 L Hgb 10.5 L Hct 30.5 L MCV 96.5 H MCH 33.3 H MCHC 34.5 RDW 15.1 H Plt Count 255 POC Glucose (mg/dL) 167 H 160 H Stool Occult Blood Blood Type Antibody Screen 06/03/17 15:49 WBC RBC Hgb Hct MCV MCH MCHC RDW Plt Count POC Glucose (mg/dL) 142 H Stool Occult Blood Blood Type Antibody Screen Assessment & Plan - Assessment and Plan (Free Text) Assessment: 89 yo male admitted with lower GI bleed after being constipated and taking laxative. Pt has been seen by GI in past. His LVEF is 35% with Mod MR by echo 2017. He has refused AICD. He is not in congestive failure and denies chest pain Plan: Await GI recommendations Hold Anticoagulation If absolutely necessary , pt at acceptable risk for colonoscopy however with severe LV dysfunction he is at risk for CHF. Bowel prep should low in Na to prevent precipitating CHF
--- NOTE | 2017-06-03 19:12 | CARD ---
APPROVED REPORT EKG Measurement Heart [id number] <Conclusion> Sinus rhythm with premature supraventricular complexes Left axis deviation Right bundle branch block Abnormal ECG
--- NOTE | 2017-06-03 20:18 | CP.PCM.CON ---
History of Present Illness - History of Present Illness History of Present Illness: 89 yo male with h/o CAD, COPD, Htn, COPD, and Afib admitted for rectal bleeding. Patient states that he was contipated and had rectal bleeding after using laxatives. No GI bleed since hospitalization. Review of Systems - Constitutional Constitutional: absent: Chills - EENT Eyes: absent: Blurred Vision Ears: absent: Decreased Hearing Nose/Mouth/Throat: absent: Epistaxis - Cardiovascular Cardiovascular: absent: Chest Pain - Respiratory Respiratory: absent: Dyspnea - Gastrointestinal Gastrointestinal: absent: Abdominal Pain - Genitourinary Genitourinary: absent: Change in Urinary Stream Past Patient History - Infectious Disease Hx of Infectious Diseases: None - Tetanus Immunizations Tetanus Immunization: Unknown - Past Medical History & Family History Past Medical History?: Yes - Past Social History Smoking Status: half cigar - CARDIAC Hx Atrial Fibrillation: Yes Hx Cardia Arrhythmia: Yes Hx Congestive Heart Failure: Yes Hx Hypercholesterolemia: Yes Hx Hypertension: Yes Hx Peripheral Edema: Yes - PULMONARY Hx Chronic Obstructive Pulmonary Disease (COPD): Yes Hx Pneumonia: Yes Hx Pulmonary Embolism: Yes - NEUROLOGICAL Hx Dementia: Yes - HEENT Hx HEENT Problems: No - RENAL Hx Chronic Kidney Disease: No - ENDOCRINE/METABOLIC Hx Hypothyroidism: Yes - HEMATOLOGICAL/ONCOLOGICAL Hx AIDS: No Hx Anemia: Yes Hx Human Immunodeficiency Virus (HIV): No - INTEGUMENTARY Hx Dermatological Problems: No - MUSCULOSKELETAL/RHEUMATOLOGICAL Hx Arthritis: Yes Hx Falls: No Hx Rheumatoid Arthritis: No - GASTROINTESTINAL Hx Diverticulitis: Yes Hx Gall Bladder Disease: Yes Hx Gastritis: Yes Hx Pancreatitis: Yes - GENITOURINARY/GYNECOLOGICAL Hx Genitourinary Disorders: Yes Hx Prostate Problems: Yes - PSYCHIATRIC Hx Psychophysiologic Disorder: No Hx Substance Use: No - SURGICAL HISTORY Hx Cholecystectomy: Yes Hx Coronary Artery Bypass Graft: Yes (quadruple CABG in 1993) - ANESTHESIA Hx Anesthesia: Yes Hx Anesthesia Reactions: No Hx Malignant Hyperthermia: No Meds Allergies/Adverse Reactions: Allergies Allergy/AdvReac Type Severity Reaction Status Date / Time No Known Allergies Allergy Verified 06/02/17 17:18 - Medications Medications: Current Medications Acetaminophen (Tylenol 325mg Tab) 650 mg PO Q6 PRN PRN Reason: Pain, Mild (1-3) Last Admin: 06/02/17 21:56 Dose: 650 mg Carvedilol (Coreg) 6.25 mg PO DAILY [facility] Last Admin: 06/03/17 08:54 Dose: 6.25 mg Home Med (Dutasteride [Avodart]) 0.5 mg PO DAILY [facility] Pantoprazole Sodium (Protonix Ec Tab) 40 mg PO DAILY [facility] Last Admin: 06/03/17 08:54 Dose: 40 mg Zolpidem Tartrate (Ambien) 5 mg PO HS [facility] Last Admin: 06/02/17 22:08 Dose: 5 mg Physical Exam - Constitutional Appears: No Acute Distress - Head Exam Head Exam: ATRAUMATIC - Eye Exam Eye Exam: Normal appearance Pupil Exam: NORMAL ACCOMODATION - Neck Exam Neck exam: Positive for: Full Rom - Respiratory Exam Respiratory Exam: Clear to Auscultation Bilateral - Cardiovascular Exam Cardiovascular Exam: REGULAR RHYTHM, +S1, +S2 - GI/Abdominal Exam GI & Abdominal Exam: Normal Bowel Sounds, Soft. absent: Tenderness Results - Vital Signs Recent Vital Signs: Last Vital Signs Temp 97.7 F 06/03/17 19:44 Pulse 93 H 06/03/17 19:44 Resp 20 06/03/17 19:44 BP 155/66 H 06/03/17 19:44 Pulse Ox 99 06/03/17 19:44 - Labs Result Diagrams: 06/03/17 09:05 06/02/17 17:57 Labs: Laboratory Results - last 24 hr 06/02/17 06/03/17 06/03/17 21:41 05:24 09:05 WBC 10.5 RBC 3.16 L Hgb 10.5 L Hct 30.5 L MCV 96.5 H MCH 33.3 H MCHC 34.5 RDW 15.1 H Plt Count 255 POC Glucose (mg/dL) 155 H 167 H 06/03/17 06/03/17 10:59 15:49 WBC RBC Hgb Hct MCV MCH MCHC RDW Plt Count POC Glucose (mg/dL) 160 H 142 H Assessment & Plan (1) Lower GI bleed Assessment and Plan: One episode of GL bleeding which was associated with constipation. Appreciate cardiology consult that patient has LV dysfunction and is high risk for anasthesia. Will hold off on colonscopy unless active bleeding occurs. Status: Acute
--- NOTE | 2017-06-04 02:02 | HP ---
HISTORY OF PRESENT ILLNESS: The patient is an 89-year-old male with history of multiple medical problems including congestive heart failure, presented to Emergency Room with symptoms of rectal bleeding x3. The patient denied to have any similar symptoms before. No abdominal pain. No weight loss and denied to have any usage of nonsteroidal anti-inflammatory medications. The patient was evaluated in Emergency Room and admitted for further management. ALLERGIES: NO KNOWN ALLERGIES. MEDICATIONS: As per MAR. SOCIAL HISTORY: No history of, EtOH or substance abuse. Positive history of cigar smoking. FAMILY HISTORY: Noncontributory. PAST MEDICAL HISTORY: Congestive heart failure, hypertension and ischemic cardiomyopathy. PHYSICAL EXAMINATION GENERAL: The patient is in bed, not in any cardiopulmonary distress at the time of this examination. VITAL SIGNS: Blood pressure 155/66, temperature 97.7, respiratory rate 20 and pulse of 90. HEENT: Pupils equal and reactive to light. Normal-appearing mucosa of the conjunctivae, oropharyngeal and nasal membrane mucosa. NECK: Supple. No JVD. No carotid bruit. No lymph node. No thyromegaly. CHEST AND LUNGS: Bilateral symmetrical expansion. Good air exchange. No rales. No rhonchi. CARDIOVASCULAR: PMI not localized. S1 and S2. No additional sounds. ABDOMEN: Normoactive bowel sounds. No tenderness. No organomegaly. No masses. EXTREMITIES: No cyanosis. No clubbing. No edema. [employer] TECHNICAL ARCHITECT: Alert, awake, oriented x2 and no neurological deficit could be appreciated. ASSESSMENT: 1. Rectal bleeding: Differential diagnosis include internal hemorrhoids, arteriovenous malformation and diverticulosis. 2. Chronic systolic heart failure with ejection fraction of 35% and he has moderate mitral regurgitation on the echocardiogram and the patient refused implantable cardioverter-defibrillator in the past. 3. Hypertension. 4. Type 2 diabetes mellitus. 5. Paroxysmal atrial fibrillation. PLAN: Follow GI recommendations. Continue the patient's home medications. Follow Cardiology recommendations. Inderjit Allen MD
[2017-06-04 09:33] LABS: HEMOGLOBIN 10.2 g/dL (12.0-18.0); MEAN CELL VOLUME 96.5 fl (80.0-94.0); MEAN CORPUSCULAR HEMOGLOBIN 33.3 pg (27.0-31.0); MEAN CORPUSCULAR HGB CONC 34.6 g/dL (33.0-37.0); RBC 3.07 Mil/uL (4.40-5.90); RED CELL DISTRIBUTION WIDTH 14.7 % (11.5-14.5); WHITE BLOOD COUNT 8.9 K/uL (4.8-10.8)
[2017-06-04 09:42] LABS: BLOOD UREA NITROGEN 15 mg/dl (9-20); CALCIUM 9.3 mg/dL (8.4-10.2); GFR AFRICAN-AMERICAN > 60; GFR NON-AFRICAN AMERICAN > 60
[2017-06-04] MEDS: Pantoprazole 40 mg EC Tab PO SCH (09:43)
[2017-06-04] MEDS ORDERED: Albuterol-Ipratrop 3 mg / 0.5 (3 ml) UD INH PRN (12:12)
[2017-06-04 14:08] VITALS: BMI 32.4
--- NOTE | 2017-06-05 01:25 | PN ---
DATE: 06/04/2017 DAILY PROGRESS NOTE SUBJECTIVE: Patient is seen today on 06/04/2017. He stated he has very mild rectal bleeding at this point. No respiratory distress. PHYSICAL EXAMINATION: VITAL SIGNS: Blood pressure 148/71, temperature 98, respiratory rate 20 and pulse 93. HEENT: Pupils equal and reactive to light. Normal-appearing mucosa of the conjunctivae, oropharyngeal and nasal membrane mucosa. NECK: Supple. No JVD. No carotid bruit. No lymph node. No thyromegaly. CHEST AND LUNGS: Bilateral symmetrical expansion. Good air exchange. Few scattered rhonchi. CARDIOVASCULAR SYSTEM: PMI not localized. S1 and S2. No additional sounds. ABDOMEN: Normoactive bowel sounds. No tenderness. No organomegaly. No masses. EXTREMITIES: No cyanosis. No clubbing. No edema. The patient has large ecchymotic area in the left upper extremity and the knee. [employer]: Alert, awake and oriented x2. No neurological deficit could be appreciated. ASSESSMENT: 1. Rectal bleeding of unknown etiology. 2. Chronic obstructive pulmonary disease. 3. Hypertension. 4. Systolic heart failure, chronic . PLAN: Followup recommendation of Cardiology and GI. Resume the patient's home medications. Continue Protonix. Monitor PT and PTT for the ecchymotic area on the left lower extremity. Inderjit Allen MD
[2017-06-05 05:35] LABS: HEMOGLOBIN 9.4 g/dL (12.0-18.0); MEAN CELL VOLUME 95.8 fl (80.0-94.0); MEAN CORPUSCULAR HEMOGLOBIN 33.5 pg (27.0-31.0); MEAN CORPUSCULAR HGB CONC 34.9 g/dL (33.0-37.0); RBC 2.81 Mil/uL (4.40-5.90); WHITE BLOOD COUNT 9.2 K/uL (4.8-10.8)
[2017-06-05 05:48] LABS: BLOOD UREA NITROGEN 15 mg/dl (9-20); CALCIUM 9.2 mg/dL (8.4-10.2); GFR AFRICAN-AMERICAN > 60; GFR NON-AFRICAN AMERICAN > 60
[2017-06-05 08:31] VITALS: RESP 20; O2SAT 100
[2017-06-05] MEDS: Pantoprazole 40 mg EC Tab PO SCH (09:04)
[2017-06-05 14:18] VITALS: BP 131/71; PULSE 112; TEMP 98
--- NOTE | 2017-06-06 03:07 | DS ---
REASON FOR ADMISSION: This is an 89-year-old male with history of multiple medical problems who was admitted for rectal bleeding. COURSE OF HOSPITALIZATION: The patient was admitted to telemetry floor. Hemoglobin and hematocrit did not decrease significantly. The patient had a GI consult with Dr. Ramirez, who did not offer any further GI workup to the patient given the high risk of any procedure due to underlying cardiac disease. The patient also had cardiac evaluation done by Dr. Davis during this admission. The patient's hemoglobin remained stable and bleeding stopped and the patient was discharged home to continue his preadmission medications. FINAL DIAGNOSES: No GI bleeding, hypertension, congestive heart failure, chronic obstructive pulmonary disease and smoker. [facility] MD Alejandro
== END 2017-06-05 14:59 | disposition home or self-care (01) | DRG 378 ==
LOC: H.ER 17:08 → H.ERHOLD 19:05 → H.TEL 20:48
PROVIDERS: ADMIT Internal Medicine; ATTEND Internal Medicine
DX: K62.5 Hemorrhage of anus and rectum (principal); I50.22 Chronic systolic (congestive) heart failure; I48.0 Paroxysmal atrial fibrillation; I11.0 Hypertensive heart disease with heart failure; E11.9 Type 2 diabetes mellitus without complications; E03.9 Hypothyroidism, unspecified; I25.5 Ischemic cardiomyopathy; E78.00 Pure hypercholesterolemia, unspecified; I25.10 Atherosclerotic heart disease of native coronary artery without angina pectoris; M10.9 Gout, unspecified; M19.90 Unspecified osteoarthritis, unspecified site; J44.9 Chronic obstructive pulmonary disease, unspecified; F03.90 Unspecified dementia, unspecified severity, without behavioral disturbance, psychotic disturbance, mood disturbance, and anxiety; Z86.711 Personal history of pulmonary embolism; K59.00 Constipation, unspecified; F17.290 Nicotine dependence, other tobacco product, uncomplicated; Z95.1 Presence of aortocoronary bypass graft; Z86.718 Personal history of other venous thrombosis and embolism; K29.70 Gastritis, unspecified, without bleeding; E78.5 Hyperlipidemia, unspecified; I34.0 Nonrheumatic mitral (valve) insufficiency

== ENCOUNTER 2017-07-04 13:12 | Inpatient (IN) | payer MEDICARE, MEDICAID ==
[2017-07-04 13:13] VITALS: BMI 32.4
[2017-07-04] MEDS ORDERED: Sodium Chloride 0.9% 500 ML IV STA (13:56)
--- NOTE | 2017-07-04 14:14 | RAD ---
HISTORY: routin COMPARISON: 06/02/2017 FINDINGS: LUNGS: No active pulmonary disease. PLEURA: No significant pleural effusion identified, no pneumothorax apparent. CARDIOVASCULAR: Status post CABG. OSSEOUS STRUCTURES: No significant abnormalities. VISUALIZED UPPER ABDOMEN: Normal. OTHER FINDINGS: None. IMPRESSION: No active disease.
[2017-07-04 14:19] LABS: INR 1.3 (0.9-1.2)
[2017-07-04 14:20] LABS: PARTIAL THROMBOPLASTIN TIME 48.9 Seconds (25.6-37.1)
--- NOTE | 2017-07-04 14:23 | ED PDOC ---
HPI: Chest Pain Chief Complaint (Provider): chest pain/rectal bleeding History Per: Patient (89 y/o male h/o CAD with EF 35% from 2017 here for ongoing rectal bleeding associated with dark stools x 2 weeks now also with chest pain increased. Notes chest pain last night at 7pm resolved with nitro and again today 9am. Took asa 81 mg earlier today. Denies any vomiting. States he has been seen [facility] but states no relief of symptoms. Denies any h/o colonoscopy.) <Annalee Nelson - Last Filed: 07/04/17 16:04> <Rj Fernández III - Last Filed: 07/04/17 16:18> Time Seen by Provider: 07/04/17 13:44 Chief Complaint (Nursing): Chest Pain Past Medical History Reviewed: Historical Data, Nursing Documentation, Vital Signs - Medical History PMH: Anemia, Arthritis, Atrial Fibrillation, CAD, Cardia Arrhythmia, CHF, COPD, Dementia, Diabetes (type II ), Diverticulitis, Deep Vein Thrombosis, Gastritis, Gall Bladder Disease, HTN, Hypercholesterolemia, Hyperlipidemia, Hypothyroidism , Pancreatitis, Peripheral Edema, Pneumonia, Pulmonary Embolism Denies: HIV, Chronic Kidney Disease, Rheumatoid Arthritis - Surgical History Surgical History: CABG (quadruple CABG in 1993), Cholecystectomy - Family History Family History: States: Unknown Family Hx <Annalee Nelson - Last Filed: 07/04/17 16:04> <Rj Fernández III - Last Filed: 07/04/17 16:18> Vital Signs: Last Vital Signs Temp 98.0 F 07/04/17 13:21 Pulse 74 07/04/17 15:37 Resp 20 07/04/17 15:37 BP 154/80 H 07/04/17 15:37 Pulse Ox 99 07/04/17 16:04 - Home Medications Home Medications: Ambulatory Orders Medication Instructions Recorded Ranolazine [Ranexa] 500 mg PO DAILY 06/02/17 Furosemide [Lasix] 20 mg PO DAILY #30 tablet 06/05/17 Omeprazole 40 mg PO DAILY #30 capsule. 06/05/17 Allopurinol [Zyloprim] 300 mg PO DAILY 07/04/17 Aspirin [Ecotrin] 81 mg PO DAILY 07/04/17 Atorvastatin [Lipitor] 40 mg PO HS 07/04/17 Carvedilol [Coreg] 12.5 mg PO Q12 07/04/17 Dutasteride [Avodart] 0.5 mg PO DAILY 07/04/17 Isosorbide Mononitrate [Imdur] 60 mg PO DAILY 07/04/17 Linagliptin [Tradjenta] 5 mg PO DAILY 07/04/17 Lisinopril [Zestril] 5 mg PO DAILY 07/04/17 Nitroglycerin 0.2 mg/hr [Nitro-Dur 1 patch TD DAILY 07/04/17 0.2 mg/hr Patch] Nitroglycerin [Nitrostat] 0.4 mg SL Q5MIN PRN 07/04/17 - Allergies Allergies/Adverse Reactions: Allergies Allergy/AdvReac Type Severity Reaction Status Date / Time No Known Allergies Allergy Verified 07/04/17 13:21 Review of Systems ROS Statement: Except As Marked, All Systems Reviewed And Found Negative Gastrointestinal: Positive for: Hematochezia <Annalee Nelson - Last Filed: 07/04/17 16:04> Physical Exam - Reviewed Nursing Documentation Reviewed: Yes Vital Signs Reviewed: Yes - Physical Exam Appears: Positive for: Well, Non-toxic, No Acute Distress Head Exam: Positive for: ATRAUMATIC, NORMAL INSPECTION, NORMOCEPHALIC Skin: Positive for: Normal Color, Warm, DRY Eye Exam: Positive for: EOMI, Normal appearance, PERRL ENT: Positive for: Normal ENT Inspection Neck: Positive for: Normal, Painless ROM Cardiovascular/Chest: Positive for: Regular Rate, Rhythm Respiratory: Positive for: CNT, Normal Breath Sounds Gastrointestinal/Abdominal: Positive for: Normal Exam, Bowel Sounds, Soft Back: Positive for: Normal Inspection Rectal: Positive for: Other (maroon blood noted with rectal exam. minimal stool. ) Extremity: Positive for: Normal ROM Neurologic/Psych: Positive for: Alert, Oriented <Annalee Nelson - Last Filed: 07/04/17 16:04> - Laboratory Results Result Diagrams: 07/04/17 14:07 07/04/17 14:07 - ECG O2 Sat by Pulse Oximetry: 99 <Annalee Nelson - Last Filed: 07/04/17 16:04> - Laboratory Results Result Diagrams: 07/04/17 14:07 07/04/17 14:07 <Rj Fernández III - Last Filed: 07/04/17 16:18> - Progress ED Course And Treament: EKG: RBBB old compared to old EKG 75bpm CXr: nad type and crossmatched 2 units. NS 500ml iv bolus protonix 80mg iv x 1 dose pharmacist states patient filled 3 month rx for pradaxa in april. Unclear from discussion with patient whether he has discontinued this medication or continues to take it (Annalee Nelson) Medical Decision Making <Annalee Nelson - Last Filed: 07/04/17 16:04> <Rj Fernández III - Last Filed: 07/04/17 16:18> Medical Decision Making: ED attending note pt seen and examined w PA 89yo male w GI bleed w history of end stage CHF Protonix drip initiated for melanotic stool w/ significant new anemia on labs Consent obtained for PRBC, cautious IVF given low EF. 4p BP 130/70 HR 84 D/w Dr Allen PMD who states admit to his service, requested GI Dr Bailey who was contacted and case discussed D/w Dr Marie for ICU care given need for cautious fluid resuscitation, GI bleed w chest pain and evidence of CHF. (Rj Fernández III) Disposition - Patient ED Disposition Is Patient to be Admitted: Yes - Disposition Disposition Time: 15:20 - Pt Status Changed To: Hospital Disposition Of: Inpatient - Admit Certification Admit to Inpatient:: After my assessment, the patient will require hospitalization for at least two midnights. This is because of the severity of symptoms shown, intensity of services needed, and/or the medical risk in this patient being treated as an outpatient. <Annalee Nelson - Last Filed: 07/04/17 16:04> <Rj Fernández III - Last Filed: 07/04/17 16:18> - Clinical Impression Clinical Impression: Chest pain, GI bleed - Disposition Condition: FAIR
[2017-07-04 14:32] LABS: ALB/GLOB RATIO 1.1 (1.0-2.1); ALBUMIN 3.3 g/dL (3.5-5.0)
[2017-07-04 14:34] LABS: BASO % 0.5 % (0.0-2.0); EOS # 0.1 K/uL (0.0-0.7); HEMOGLOBIN 7.6 g/dL (12.0-18.0); LYMPH # 1.1 K/uL (1.0-4.3); LYMPH % 13.9 % (20.0-40.0); MEAN CELL VOLUME 95.4 fl (80.0-94.0); MEAN CORPUSCULAR HEMOGLOBIN 32.2 pg (27.0-31.0); MEAN CORPUSCULAR HGB CONC 33.8 g/dL (33.0-37.0); MEAN PLATELET VOLUME 8.9 fl (7.2-11.7); MONO # 0.5 K/uL (0.0-0.8); MONO % 6.5 % (0.0-10.0); NEUT # 6.3 K/uL (1.8-7.0); NEUT % 78.1 % (50.0-75.0); RBC 2.35 Mil/uL (4.40-5.90); RED CELL DISTRIBUTION WIDTH 15.2 % (11.5-14.5); WHITE BLOOD COUNT 8.1 K/uL (4.8-10.8)
[2017-07-04 14:36] LABS: TROPONIN I 0.04 ng/mL (0.00-0.120)
--- NOTE | 2017-07-04 16:09 | CP.CCUPN ---
CCU Subjective - Physician Review Subjective (Free Text): 89M admitted from ER to ICU over concern regarding cardiac decompensation and possible fluid overload state. Hemodynamics currently stable, oxygenation excellent on nasal cannula. Admitted for moderate anemia and melanotic stool. Other Vitals and I/Os reviewed. ROS: No other pertinent negs or positives on 10+ system review. Allergies: NKDA Home Meds: Imdur and Nitrodur patch, Ranexa, Tradjenta, Zestril, Omeprazole, Zyloprim, Lipitor, ASA, Coreg, Avodart, Lasix. 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 All other historical Nursing and physician documentation reviewed to date; no new pertinent info noted relevant to current medical problems. EXAM- HEENT: no icterus, no gaze preference, pupils equal and reactive, no icterus NECK: No JVD, supple, carotids equal upstroke bilat/no bruits CHEST: decreased BS bases, otherwise clear bilat, no wheezes audible HEART: regular distant, S1S2, no rubs. ABD: soft, no distention, no tympany, no palp tenderness, BS hypoactive. EXT: Trace to +1 edema bilat. No peripheral/ digital cyanosis, no calf tenderness or palpable cords, distal pulses intact and symmetrical. NEURO: no gross focal motor deficits SKIN: no rashes, warm and dry. LABS: WBC= 8.1 HGB= 7.6 PLTs= 198K INR= 1.3, PTT=48.9 Na= 139 K= 4.4 CL= 105 HCO3= 22 BUN/Cr= 26/1.4 BS= 156 TROP #1 negative BNP = 1860 CXR: Clear, no congestive changes, no cardiomegaly (my interp). EKG: sinus , 1st deg AVB, LAD, RBBB; no change as compared to 06/02/2017 study ( my interp). MAJOR PROBLEMS: 1. UGI Bleed 2. Acute Anemia 2 #1 3. Mild Coagulopathy 4. Azotemia / Dehydration 4. H/o cardiomyopathy, RI: no clinical CHF decompensation now. PLAN: 1. Hold on any IVF hydration for now unless hypotensive or severe oliguria, intravascular volume to be restored with blood products including PRBCs and FFP. 2. Serial HGB, GI eval for appropriateness of endoscopy. 3. Off AC; but patients is an unreliable historian, has been on Pradaxa in the past; ASA- hold for now as well. Continue nitrates and BBs. Lasix prn especially after PRBCs. 3. PPi drip started in ER. NPO. 4. ECHO; check records past 2015. 5. Telemetry admission is appropriate for now, or move to ICU if any active bleeding or fails to respond to current treatments. CCU Objective - Vital Signs / Intake & Output Vital Signs (Last 4 hours): Vital Signs Temp Pulse Resp BP Pulse Ox 07/04/17 16:04 99 07/04/17 15:37 74 20 154/80 H 100 07/04/17 13:21 98.0 F 75 16 120/57 L 99 Intake and Output (Last 8hrs): Intake & Output 07/04/17 07/04/17 07/04/17 06:59 14:59 22:59 Weight 180 lb - Medications Active Medications: Active Medications Generic Name Dose Route Start Last Admin Trade Name Freq PRN Reason Stop Dose Admin Pantoprazole Sodium 40 mg/ 100 mls @ 200 mls/hr 07/04/17 15:15 Sodium Chloride IVPB Q5H DIANA 80 MG/HR Nitroglycerin 0.4 mg 07/04/17 15:43 Nitrostat Sl Tab SL Q5M PRN Pain, Mild (1-3) - Patient Studies Lab Studies: Lab Studies 07/04/17 07/04/17 07/04/17 Range/Units 14:07 14:07 14:07 WBC 8.1 (4.8-10.8) K/uL RBC 2.35 L (4.40-5.90) Mil/uL Hgb 7.6 L (12.0-18.0) g/dL Hct 22.4 L (35.0-51.0) % MCV 95.4 H (80.0-94.0) fl MCH 32.2 H (27.0-31.0) pg MCHC 33.8 (33.0-37.0) g/dL RDW 15.2 H (11.5-14.5) % Plt Count 198 (130-400) K/uL MPV 8.9 (7.2-11.7) fl Neut % (Auto) 78.1 H (50.0-75.0) % Lymph % (Auto) 13.9 L (20.0-40.0) % [place] % (Auto) 6.5 (0.0-10.0) % Eos % (Auto) 1.0 (0.0-4.0) % Baso % (Auto) 0.5 (0.0-2.0) % Neut # (Auto) 6.3 (1.8-7.0) K/uL Lymph # (Auto) 1.1 (1.0-4.3) K/uL [place] # (Auto) 0.5 (0.0-0.8) K/uL Eos # (Auto) 0.1 (0.0-0.7) K/uL Baso # (Auto) 0.0 (0.0-0.2) K/uL PT 15.0 H (9.8-13.1) Seconds INR 1.3 H (0.9-1.2) APTT 48.9 H (25.6-37.1) Seconds Sodium 139 (132-148) mmol/l Potassium 4.4 (3.6-5.0) MMOL/L Chloride 105 (98-107) mmol/L Carbon Dioxide 22 (22-30) mmol/L Anion Gap 16 (10-20) BUN 26 H (9-20) mg/dl Creatinine 1.4 (0.8-1.5) mg/dl Est GFR ( Amer) 58 Est GFR (Non-Af Amer) 48 Random Glucose 156 H (75-110) mg/dL Calcium 9.0 (8.4-10.2) mg/dL Magnesium 2.1 (1.6-2.3) MG/DL Total Bilirubin 0.5 (0.2-1.3) mg/dl AST 19 (17-59) U/L ALT 25 (21-72) U/L Alkaline Phosphatase 67 (38-126) U/L Troponin I 0.0400 (0.00-0.120) ng/mL NT-Pro-B Natriuret Pep 1860 H (0-900) pg/ml Total Protein 6.2 L (6.3-8.2) G/DL Albumin 3.3 L (3.5-5.0) g/dL Globulin 3.0 (2.2-3.9) gm/dL Albumin/Globulin Ratio 1.1 (1.0-2.1) Blood Type Antibody Screen BBK History Checked 07/04/17 Range/Units 14:00 WBC (4.8-10.8) K/uL RBC (4.40-5.90) Mil/uL Hgb (12.0-18.0) g/dL Hct (35.0-51.0) % MCV (80.0-94.0) fl MCH (27.0-31.0) pg MCHC (33.0-37.0) g/dL RDW (11.5-14.5) % Plt Count (130-400) K/uL MPV (7.2-11.7) fl Neut % (Auto) (50.0-75.0) % Lymph % (Auto) (20.0-40.0) % [place] % (Auto) (0.0-10.0) % Eos % (Auto) (0.0-4.0) % Baso % (Auto) (0.0-2.0) % Neut # (Auto) (1.8-7.0) K/uL Lymph # (Auto) (1.0-4.3) K/uL [place] # (Auto) (0.0-0.8) K/uL Eos # (Auto) (0.0-0.7) K/uL Baso # (Auto) (0.0-0.2) K/uL PT (9.8-13.1) Seconds INR (0.9-1.2) APTT (25.6-37.1) Seconds Sodium (132-148) mmol/l Potassium (3.6-5.0) MMOL/L Chloride (98-107) mmol/L Carbon Dioxide (22-30) mmol/L Anion Gap (10-20) BUN (9-20) mg/dl Creatinine (0.8-1.5) mg/dl Est GFR ( Amer) Est GFR (Non-Af Amer) Random Glucose (75-110) mg/dL Calcium (8.4-10.2) mg/dL Magnesium (1.6-2.3) MG/DL Total Bilirubin (0.2-1.3) mg/dl AST (17-59) U/L ALT (21-72) U/L Alkaline Phosphatase (38-126) U/L Troponin I (0.00-0.120) ng/mL NT-Pro-B Natriuret Pep (0-900) pg/ml Total Protein (6.3-8.2) G/DL Albumin (3.5-5.0) g/dL Globulin (2.2-3.9) gm/dL Albumin/Globulin Ratio (1.0-2.1) Blood Type O POSITIVE Antibody Screen Negative BBK History Checked Patient has bt Laboratory Results - last 24 hr 07/04/17 07/04/17 07/04/17 14:00 14:07 14:07 WBC 8.1 RBC 2.35 L Hgb 7.6 L Hct 22.4 L MCV 95.4 H MCH 32.2 H MCHC 33.8 RDW 15.2 H Plt Count 198 MPV 8.9 Neut % (Auto) 78.1 H Lymph % (Auto) 13.9 L [place] % (Auto) 6.5 Eos % (Auto) 1.0 Baso % (Auto) 0.5 Neut # (Auto) 6.3 Lymph # (Auto) 1.1 [place] # (Auto) 0.5 Eos # (Auto) 0.1 Baso # (Auto) 0.0 PT INR APTT Sodium 139 Potassium 4.4 Chloride 105 Carbon Dioxide 22 Anion Gap 16 BUN 26 H Creatinine 1.4 Est GFR ( Amer) 58 Est GFR (Non-Af Amer) 48 Random Glucose 156 H Calcium 9.0 Magnesium 2.1 Total Bilirubin 0.5 AST 19 ALT 25 Alkaline Phosphatase 67 Troponin I 0.0400 NT-Pro-B Natriuret Pep 1860 H Total Protein 6.2 L Albumin 3.3 L Globulin 3.0 Albumin/Globulin Ratio 1.1 Blood Type O POSITIVE Antibody Screen Negative BBK History Checked Patient has bt 07/04/17 14:07 WBC RBC Hgb Hct MCV MCH MCHC RDW Plt Count MPV Neut % (Auto) Lymph % (Auto) [place] % (Auto) Eos % (Auto) Baso % (Auto) Neut # (Auto) Lymph # (Auto) [place] # (Auto) Eos # (Auto) Baso # (Auto) PT 15.0 H INR 1.3 H APTT 48.9 H Sodium Potassium Chloride Carbon Dioxide Anion Gap BUN Creatinine Est GFR ( Amer) Est GFR (Non-Af Amer) Random Glucose Calcium Magnesium Total Bilirubin AST ALT Alkaline Phosphatase Troponin I NT-Pro-B Natriuret Pep Total Protein Albumin Globulin Albumin/Globulin Ratio Blood Type Antibody Screen BBK History Checked EKG/Cardiology Studies: Cardiology / EKG Studies 07/04/17 13:43 ELECTROCARDIOGRAM Stat Comment: Mode Of Transportation: STRETCHER Reason For Exam: routine 07/04/17 15:44 EKG [ELECTROCARDIOGRAM] Stat Comment: Mode Of Transportation: STRETCHER Reason For Exam: REPEAT CHEST PAIN Fingerstick Blood Sugar Results: 170
--- NOTE | 2017-07-04 16:23 | CP.PCM.CON ---
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 States that for the last two days he has noticed bright red blood per rectum with bowel movement. Has had up to 6 episodes in the past few days. He developed substernal chest pain last night which resolved with nitroglycerine but worsened this morning prompting him to come to the ED for further evaluation. He has been evaluated a number of times for similar complaints, most recently in May 2017 when symptoms resolved with supportive care alone. Currently, he denies any chest pain and is feeling well. Denies shortness of breath, chest/abdominal pain, weight loss, nausea, vomiting, fever , chills, palpitations. Since admission, there have been intermittent episodes of chest pain per the patient which have been relieved with nitroglycerin. Troponin level steadily rising. PMHx: See HPI PSHx: CABG, PCI FHx: Discussed with patient and he denies any significant family history Social: Denies tobacco, EtOH or illicit drug use Endo: ERCP - 01/2016 - biliary stent placed - patient lost to F/U 12 system ROS performed and negative except where stated. Past Patient History - Infectious Disease Hx of Infectious Diseases: None - Tetanus Immunizations Tetanus Immunization: Unknown - Past Medical History & Family History Past Medical History?: Yes - Past Social History Smoking Status: Never Smoked - CARDIAC Hx Atrial Fibrillation: Yes Hx Cardia Arrhythmia: Yes Hx Congestive Heart Failure: Yes Hx Hypercholesterolemia: Yes Hx Hypertension: Yes Hx Peripheral Edema: Yes - PULMONARY Hx Chronic Obstructive Pulmonary Disease (COPD): Yes Hx Pneumonia: Yes Hx Pulmonary Embolism: Yes - NEUROLOGICAL Hx Dementia: Yes - HEENT Hx HEENT Problems: No - RENAL Hx Chronic Kidney Disease: No - ENDOCRINE/METABOLIC Hx Hypothyroidism: Yes - HEMATOLOGICAL/ONCOLOGICAL Hx Anemia: Yes Hx Human Immunodeficiency Virus (HIV): No - INTEGUMENTARY Hx Dermatological Problems: No - MUSCULOSKELETAL/RHEUMATOLOGICAL Hx Arthritis: Yes Hx Rheumatoid Arthritis: No - GASTROINTESTINAL Hx Diverticulitis: Yes Hx Gall Bladder Disease: Yes Hx Gastritis: Yes Hx Pancreatitis: Yes - GENITOURINARY/GYNECOLOGICAL Hx Genitourinary Disorders: Yes Hx Prostate Problems: Yes - PSYCHIATRIC Hx Psychophysiologic Disorder: No Hx Substance Use: No - SURGICAL HISTORY Hx Cholecystectomy: Yes Hx Coronary Artery Bypass Graft: Yes (quadruple CABG in 1993) - ANESTHESIA Hx Anesthesia: Yes Hx Anesthesia Reactions: No Hx Malignant Hyperthermia: No Meds Allergies/Adverse Reactions: Allergies Allergy/AdvReac Type Severity Reaction Status Date / Time No Known Allergies Allergy Verified 07/04/17 13:21 - Medications Medications: Current Medications Carvedilol (Coreg) 12.5 mg PO Q12 [facility] Pantoprazole Sodium 40 mg/ (Sodium Chloride) 100 mls @ 200 mls/hr IVPB Q5H [facility] PRN Reason: 80 MG/HR Isosorbide Mononitrate (Imdur) 60 mg PO DAILY [facility] Nitroglycerin (Nitrostat Sl Tab) 0.4 mg SL Q5M PRN PRN Reason: Pain, Mild (1-3) Nitroglycerin (Nitro-Dur 0.2 Mg/Hr Patch) 1 patch TD DAILY [facility] Physical Exam - Constitutional Appears: Non-toxic, No Acute Distress, Other (obese) - Eye Exam Eye Exam: EOMI, PERRL - ENT Exam ENT Exam: Mucous Membranes Moist - Respiratory Exam Respiratory Exam: Clear to Auscultation Bilateral. absent: Rales, Rhonchi, Wheezes - Cardiovascular Exam Cardiovascular Exam: RRR, +S1, +S2 - GI/Abdominal Exam GI & Abdominal Exam: Normal Bowel Sounds, Soft. absent: Distended, Firm, Guarding, Organomegaly, Rigid, Tenderness - Rectal Exam Rectal Exam: Bloody Stool, Hemorrhoids (external) - Extremities Exam Additional comments: B/L 1+ LE edema - Neurological Exam Neurological exam: Alert, Oriented x3 - Psychiatric Exam Psychiatric exam: Normal Affect, Normal Mood - Skin Skin Exam: Dry, Warm Results - Vital Signs Recent Vital Signs: Last Vital Signs Temp 98.0 F 07/04/17 13:21 Pulse 74 07/04/17 15:37 Resp 20 07/04/17 15:37 BP 154/80 H 07/04/17 15:37 Pulse Ox 99 07/04/17 16:04 - Labs Result Diagrams: 07/04/17 20:37 07/04/17 14:07 Labs: Laboratory Results - last 24 hr 07/04/17 07/04/17 07/04/17 14:00 14:07 14:07 WBC 8.1 RBC 2.35 L Hgb 7.6 L Hct 22.4 L MCV 95.4 H MCH 32.2 H MCHC 33.8 RDW 15.2 H Plt Count 198 MPV 8.9 Neut % (Auto) 78.1 H Lymph % (Auto) 13.9 L [place] % (Auto) 6.5 Eos % (Auto) 1.0 Baso % (Auto) 0.5 Neut # (Auto) 6.3 Lymph # (Auto) 1.1 [place] # (Auto) 0.5 Eos # (Auto) 0.1 Baso # (Auto) 0.0 PT INR APTT Sodium 139 Potassium 4.4 Chloride 105 Carbon Dioxide 22 Anion Gap 16 BUN 26 H Creatinine 1.4 Est GFR ( Amer) 58 Est GFR (Non-Af Amer) 48 Random Glucose 156 H Calcium 9.0 Magnesium 2.1 Total Bilirubin 0.5 AST 19 ALT 25 Alkaline Phosphatase 67 Troponin I 0.0400 NT-Pro-B Natriuret Pep 1860 H Total Protein 6.2 L Albumin 3.3 L Globulin 3.0 Albumin/Globulin Ratio 1.1 Blood Type O POSITIVE Antibody Screen Negative BBK History Checked Patient has bt 07/04/17 14:07 WBC RBC Hgb Hct MCV MCH MCHC RDW Plt Count MPV Neut % (Auto) Lymph % (Auto) [place] % (Auto) Eos % (Auto) Baso % (Auto) Neut # (Auto) Lymph # (Auto) [place] # (Auto) Eos # (Auto) Baso # (Auto) PT 15.0 H INR 1.3 H APTT 48.9 H Sodium Potassium Chloride Carbon Dioxide Anion Gap BUN Creatinine Est GFR ( Amer) Est GFR (Non-Af Amer) Random Glucose Calcium Magnesium Total Bilirubin AST ALT Alkaline Phosphatase Troponin I NT-Pro-B Natriuret Pep Total Protein Albumin Globulin Albumin/Globulin Ratio Blood Type Antibody Screen BBK History Checked Assessment & Plan - Assessment and Plan (Free Text) Assessment: Patient is an 89yo male with PMHx significant for CAD s/p CABG and PCI, systolic CHF with EF 55% in October 2016 (previously 35% and refused AICD), cholecystitis s/p percutaneous cholecystostomy tube (removed 02/2016) and ERCP with plastic biliary stent placed November 2015 and patient lost to follow up, HTN , DM2, 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 who presented to the ED with chest pain and rectal bleeding -Acute blood loss anemia -Acute GI hemorrhage -NSTEMI -Multi-vessel CAD -Systolic CHF -H/O choledocolithiasis s/p ERCP with plastic biliary stent placement Plan: -Patient nonadherent to medications/follow up and unclear if he is using anticoagulation/antiplatelet therapy at home regularly; unclear as well -High risk for EGD/colonoscopy given underlying CAD, ongoing NSTEMI with rising troponin -Supportive care with transfusion support as needed; no further episodes of GI bleeding noted since arrival -Plan re: antiplatelet/anticoagulation per cardiology given ongoing NSTEMI -Patient is hemodynamically stable at this time -PPI gtt as ordered -Liquid diet ordered -Patient had biliary stent placed in 2015 and was lost to F/U, if stent remains , would need to be removed - none noted on plain film - Date & Time Date: 07/04/17 Time: 16:10 <Won Vela - Last Filed: 07/05/17 20:54> Meds - Medications Medications: Current Medications Atorvastatin Calcium (Lipitor) 40 mg PO DAILY [facility] Last Admin: 07/05/17 17:18 Dose: 40 mg Carvedilol (Coreg) 12.5 mg PO Q12 [facility] Last Admin: 07/05/17 20:43 Dose: 12.5 mg Pantoprazole Sodium 40 mg/ (Sodium Chloride) 100 mls @ 200 mls/hr IVPB Q5H [facility] PRN Reason: 80 MG/HR Last Admin: 07/05/17 20:44 Dose: 200 mls/hr Isosorbide Mononitrate (Imdur) 60 mg PO DAILY [facility] Last Admin: 07/05/17 08:49 Dose: 60 mg Lisinopril (Zestril) 5 mg PO DAILY [facility] Last Admin: 07/05/17 17:19 Dose: 5 mg Morphine Sulfate (Morphine) 2 mg IVP Q4 PRN PRN Reason: Pain, Mild (1-3) Nitroglycerin (Nitrostat Sl Tab) 0.4 mg SL Q5M PRN PRN Reason: Pain, Mild (1-3) Last Admin: 07/05/17 09:18 Dose: 0.4 mg Nitroglycerin (Nitro-Dur 0.2 Mg/Hr Patch) 1 patch TD DAILY [facility] Last Admin: 07/05/17 08:49 Dose: 1 patch Results - Vital Signs Recent Vital Signs: Last Vital Signs Temp 98.1 F 07/05/17 16:00 Pulse 73 07/05/17 20:43 Resp 15 07/05/17 16:00 BP 138/42 L 07/05/17 20:43 Pulse Ox 97 07/05/17 16:00 - Labs Result Diagrams: 07/05/17 18:09 07/05/17 13:17 Labs: Laboratory Results - last 24 hr 07/04/17 07/04/17 07/04/17 15:45 20:37 21:07 WBC 9.6 RBC 2.64 L Hgb 8.5 L Hct 25.2 L MCV 95.4 H MCH 32.0 H MCHC 33.5 RDW 15.1 H Plt Count 219 PT INR APTT Sodium Potassium Chloride Carbon Dioxide Anion Gap BUN Creatinine Est GFR ( Amer) Est GFR (Non-Af Amer) POC Glucose (mg/dL) 218 H Random Glucose Calcium Total Bilirubin AST ALT Alkaline Phosphatase Troponin I Total Protein Albumin Globulin Albumin/Globulin Ratio Blood Type O POSITIVE Antibody Screen Negative Crossmatch See Detail BBK History Checked Patient has bt 07/05/17 07/05/17 07/05/17 00:13 05:28 09:10 WBC RBC Hgb Hct MCV MCH MCHC RDW Plt Count PT INR APTT Sodium Potassium Chloride Carbon Dioxide Anion Gap BUN Creatinine Est GFR ( Amer) Est GFR (Non-Af Amer) POC Glucose (mg/dL) 148 H Random Glucose Calcium Total Bilirubin AST ALT Alkaline Phosphatase Troponin I 1.0700 H* 8.1500 H* Total Protein Albumin Globulin Albumin/Globulin Ratio Blood Type Antibody Screen Crossmatch BBK History Checked 07/05/17 07/05/17 07/05/17 11:03 13:17 13:17 WBC RBC Hgb Hct MCV MCH MCHC RDW Plt Count PT 12.9 INR 1.2 APTT 36.5 D Sodium 140 Potassium 4.0 Chloride 104 Carbon Dioxide 27 Anion Gap 13 BUN 19 Creatinine 1.1 Est GFR ( Amer) > 60 Est GFR (Non-Af Amer) > 60 POC Glucose (mg/dL) 138 H Random Glucose 181 H Calcium 9.2 Total Bilirubin 1.0 AST 77 H D ALT 23 Alkaline Phosphatase 73 Troponin I Total Protein 6.3 Albumin 3.3 L Globulin 3.0 Albumin/Globulin Ratio 1.1 Blood Type Antibody Screen Crossmatch BBK History Checked 07/05/17 07/05/17 07/05/17 13:17 16:46 18:09 WBC 9.8 9.6 RBC 2.80 L 2.79 L Hgb 8.8 L 8.9 L Hct 26.0 L 25.9 L MCV 92.8 D 92.9 MCH 31.4 H 31.9 H MCHC 33.8 34.4 RDW 15.5 H 15.5 H Plt Count 179 186 PT INR APTT Sodium Potassium Chloride Carbon Dioxide Anion Gap BUN Creatinine Est GFR ( Amer) Est GFR (Non-Af Amer) POC Glucose (mg/dL) 190 H Random Glucose Calcium Total Bilirubin AST ALT Alkaline Phosphatase Troponin I Total Protein Albumin Globulin Albumin/Globulin Ratio Blood Type Antibody Screen Crossmatch BBK History Checked Attending/Attestation - Attestation I have personally seen and examined this patient.: Yes I have fully participated in the care of the patient.: Yes I have reviewed all pertinent clinical information: Yes Notes (Text): 07/05/17 20:46 Patient seen in MICU this am. 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 Hb/Hct stable and rectal exam with brown stool. Will continue supportive care with transfusions as indicated. No urgent indication for endoscopic evaluation. Antiplatelet/anticoagulation per cardiology given ongoing NSTEMI- no GI contraindication currently. PPI daily. Last EGD/ colonoscopy by Dr Fournier as per patient which was normal. Diet as tolerated. Patient had biliary stent placed in 2015 and was lost to F/U, if stent remains, would need to be removed - none noted on plain film
--- NOTE | 2017-07-04 18:22 | CARD ---
APPROVED REPORT EKG Measurement Heart [id number] <Conclusion> Sinus rhythm with 1st degree AV block Left axis deviation Right bundle branch block Abnormal ECG
[2017-07-04] MEDS ORDERED: Nitroglycerin 2% 15 INCH/30 GM TUBE TOP STA (18:33)
[2017-07-04] MEDS ORDERED: Nitroglycerin 2% Ointment Foilpak UD TOP ONE (18:56)
--- NOTE | 2017-07-04 19:52 | CP.PCM.CON ---
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 Pt admitted with blood per rectum and anemia. Pt has stable angina and has c/o of chest pain in setting of anemia. No evidence of clinical ischemia by EKG or cardiac enymes. Pt comfortable at rest with no clinical evidence of CHF. Troponin is negative x 1. Past Patient History - Infectious Disease Hx of Infectious Diseases: None - Tetanus Immunizations Tetanus Immunization: Unknown - Past Medical History & Family History Past Medical History?: Yes - Past Social History Smoking Status: cigar - CARDIAC Hx Cardiac Disorders: Yes (HF, CAD, AFIB) Hx Congestive Heart Failure: Yes Hx Hypotension: Yes - PULMONARY Hx Respiratory Disorders: Yes (COPD) Hx Pneumonia: Yes Hx Pulmonary Embolism: Yes - NEUROLOGICAL Hx Neurological Disorder: Yes - HEENT Other/Comment: hard of hearing - RENAL Hx Renal Failure: No - ENDOCRINE/METABOLIC Hx Diabetes Mellitus Type 2: Yes Hx Hypothyroidism: Yes - HEMATOLOGICAL/ONCOLOGICAL Hx Anemia: Yes Hx Human Immunodeficiency Virus (HIV): No - INTEGUMENTARY Hx Dermatological Problems: No - MUSCULOSKELETAL/RHEUMATOLOGICAL Hx Arthritis: Yes - GASTROINTESTINAL Hx Gall Bladder Disease: Yes Hx Gastritis: Yes Hx Pancreatitis: Yes - GENITOURINARY/GYNECOLOGICAL Other/Comment: BPH - PSYCHIATRIC Hx Psychophysiologic Disorder: No - SURGICAL HISTORY Hx Appendectomy: Yes Hx Cholecystectomy: Yes - ANESTHESIA Hx Anesthesia: Yes Hx Anesthesia Reactions: No Hx Malignant Hyperthermia: No Meds Allergies/Adverse Reactions: Allergies Allergy/AdvReac Type Severity Reaction Status Date / Time No Known Allergies Allergy Verified 07/04/17 13:21 - Medications Medications: Current Medications Carvedilol (Coreg) 12.5 mg PO Q12 [facility] Pantoprazole Sodium 40 mg/ (Sodium Chloride) 100 mls @ 200 mls/hr IVPB Q5H [facility] PRN Reason: 80 MG/HR Isosorbide Mononitrate (Imdur) 60 mg PO DAILY [facility] Morphine Sulfate (Morphine) 2 mg IVP Q4 PRN PRN Reason: Pain, Mild (1-3) Nitroglycerin (Nitrostat Sl Tab) 0.4 mg SL Q5M PRN PRN Reason: Pain, Mild (1-3) Last Admin: 07/04/17 16:25 Dose: 0.4 mg Nitroglycerin (Nitro-Dur 0.2 Mg/Hr Patch) 1 patch TD DAILY [facility] Physical Exam - Head Exam Head Exam: NORMAL INSPECTION - Neck Exam Neck exam: Positive for: Normal Inspection - Respiratory Exam Respiratory Exam: Clear to Auscultation Bilateral - Cardiovascular Exam Cardiovascular Exam: REGULAR RHYTHM - Extremities Exam Extremities exam: Positive for: normal inspection Results - Vital Signs Recent Vital Signs: Last Vital Signs Temp 98.2 F 07/04/17 16:39 Pulse 79 07/04/17 16:39 Resp 20 07/04/17 18:21 BP 157/77 H 07/04/17 16:39 Pulse Ox 99 07/04/17 16:04 - Labs Result Diagrams: 07/04/17 14:07 07/04/17 14:07 Labs: Laboratory Results - last 24 hr 07/04/17 07/04/17 07/04/17 14:00 14:07 14:07 WBC 8.1 RBC 2.35 L Hgb 7.6 L Hct 22.4 L MCV 95.4 H MCH 32.2 H MCHC 33.8 RDW 15.2 H Plt Count 198 MPV 8.9 Neut % (Auto) 78.1 H Lymph % (Auto) 13.9 L [place] % (Auto) 6.5 Eos % (Auto) 1.0 Baso % (Auto) 0.5 Neut # (Auto) 6.3 Lymph # (Auto) 1.1 [place] # (Auto) 0.5 Eos # (Auto) 0.1 Baso # (Auto) 0.0 PT INR APTT Sodium 139 Potassium 4.4 Chloride 105 Carbon Dioxide 22 Anion Gap 16 BUN 26 H Creatinine 1.4 Est GFR ( Amer) 58 Est GFR (Non-Af Amer) 48 POC Glucose (mg/dL) Random Glucose 156 H Calcium 9.0 Magnesium 2.1 Total Bilirubin 0.5 AST 19 ALT 25 Alkaline Phosphatase 67 Troponin I 0.0400 NT-Pro-B Natriuret Pep 1860 H Total Protein 6.2 L Albumin 3.3 L Globulin 3.0 Albumin/Globulin Ratio 1.1 Stool Occult Blood Blood Type O POSITIVE Antibody Screen Negative Crossmatch BBK History Checked Patient has bt 07/04/17 07/04/17 07/04/17 14:07 15:45 15:50 WBC RBC Hgb Hct MCV MCH MCHC RDW Plt Count MPV Neut % (Auto) Lymph % (Auto) [place] % (Auto) Eos % (Auto) Baso % (Auto) Neut # (Auto) Lymph # (Auto) [place] # (Auto) Eos # (Auto) Baso # (Auto) PT 15.0 H INR 1.3 H APTT 48.9 H Sodium Potassium Chloride Carbon Dioxide Anion Gap BUN Creatinine Est GFR ( Amer) Est GFR (Non-Af Amer) POC Glucose (mg/dL) Random Glucose Calcium Magnesium Total Bilirubin AST ALT Alkaline Phosphatase Troponin I NT-Pro-B Natriuret Pep Total Protein Albumin Globulin Albumin/Globulin Ratio Stool Occult Blood Positive H Blood Type O POSITIVE Antibody Screen Negative Crossmatch See Detail BBK History Checked Patient has bt 07/04/17 17:56 WBC RBC Hgb Hct MCV MCH MCHC RDW Plt Count MPV Neut % (Auto) Lymph % (Auto) [place] % (Auto) Eos % (Auto) Baso % (Auto) Neut # (Auto) Lymph # (Auto) [place] # (Auto) Eos # (Auto) Baso # (Auto) PT INR APTT Sodium Potassium Chloride Carbon Dioxide Anion Gap BUN Creatinine Est GFR ( Amer) Est GFR (Non-Af Amer) POC Glucose (mg/dL) 161 H Random Glucose Calcium Magnesium Total Bilirubin AST ALT Alkaline Phosphatase Troponin I NT-Pro-B Natriuret Pep Total Protein Albumin Globulin Albumin/Globulin Ratio Stool Occult Blood Blood Type Antibody Screen Crossmatch BBK History Checked Assessment & Plan - Assessment and Plan (Free Text) Assessment: Pt given IV fluids in ER, will need 2 PRBC to be given judiciously in ICU with Lasix in between units given his decreased LV function This is his 2nd recurrent admission with similar symptoms Would proceed with EGD/ Colonoscopy if clinically indicated by GI He is at increased risk from a cardiac standpoint due to his LV dysfunction and CAD but the risk is not prohibitive given the evidence of ongoing recurrent bleeding and the need for definitive treatment Discussed plan with heating element winder and in agreement with therapeutic plan Would watch I's /O's closely
[2017-07-04 21:14] LABS: HEMOGLOBIN 8.5 g/dL (12.0-18.0); MEAN CELL VOLUME 95.4 fl (80.0-94.0); MEAN CORPUSCULAR HGB CONC 33.5 g/dL (33.0-37.0); RBC 2.64 Mil/uL (4.40-5.90); RED CELL DISTRIBUTION WIDTH 15.1 % (11.5-14.5); WHITE BLOOD COUNT 9.6 K/uL (4.8-10.8)
[2017-07-05] MEDS: Nitroglycerin 0.2 mg/hr Top Patch TD SCH (08:49)
--- NOTE | 2017-07-05 09:26 | RAD ---
HISTORY: eval for presence of biliary stent COMPARISON: CT scan of the abdomen pelvis dated 11/28/2015. FINDINGS: BOWEL: Nonspecific bowel gas pattern. BONES: Degenerative change. OTHER FINDINGS: No radiopaque biliary stent. IMPRESSION: No radiopaque biliary stent.
[2017-07-05] MEDS ORDERED: Chlorhexidine Gluconate 1 APPL/PKT TP ONE (10:26)
--- NOTE | 2017-07-05 12:56 | CP.CCUPN ---
CCU Subjective - Physician Review Subjective (Free Text): Awake and alert, non-distressed, no recurrent chest discomfort overnight, but had mild recurrence this Am and responded to SL NTG, 3rd troponin higher at 8.0 , denies any SOB or FLOOD, has been using the urinal and getting OOB to urinate. Recd 2 units PRBCs and 2 units FFP overnight. Other Vitals and I/Os reviewed. ROS: No other pertinent negs or positives on 10+ system review. 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 All other historical Nursing and physician documentation reviewed to date; no new pertinent info noted relevant to current medical problems. EXAM- HEENT: no icterus, no gaze preference, pupils equal and reactive, no icterus NECK: No JVD, supple, carotids equal upstroke bilat/no bruits CHEST: decreased BS bases, otherwise clear bilat, no wheezes audible HEART: regular distant, S1S2, no rubs. ABD: soft, no distention, no tympany, no palp tenderness, BS hypoactive. EXT: Trace to +1 edema bilat. No peripheral/ digital cyanosis, no calf tenderness or palpable cords, distal pulses intact and symmetrical. NEURO: no gross focal motor deficits SKIN: no rashes, warm and dry. LABS: repeated at 830PM last evening- WBC= 9.6 HGB= 8.5 PLTs= 219K INR= 1.3, PTT=48.9 on admission Admission Lytes: Na= 139 K= 4.4 CL= 105 HCO3= 22 BUN/Cr= 26/1.4 BS= 156 TROP #1 negative BNP = 1860 EKG: sinus 69/min, new PVCs; 1st deg AVB, LAD, RBBB (my interp). MAJOR PROBLEMS: 1. Acute NSTEMI 2. UGI Bleed 3. Acute Anemia 2 #1 4. Mild Coagulopathy 5. Azotemia / Dehydration PLAN: 1. PRN Lasix, but no CHF decompensation evident now. 2. Awaiting on repeat Serial HGB and coags. Endoscopy problematic and high risk given recent Trop elevation. 3. Off AC; ASA and Plavix. BBs and nitrates continued, resume statin and ACEi. 4. PPi drip ongoing, started in ER. 5. ECHO CCU Objective - Vital Signs / Intake & Output Vital Signs (Last 4 hours): Vital Signs Temp Pulse Resp BP Pulse Ox 07/05/17 12:00 97.7 F 81 15 153/20 H 96 07/05/17 10:00 98.3 F 76 146/68 Intake and Output (Last 8hrs): Intake & Output 07/04/17 07/05/17 07/05/17 22:59 06:59 14:59 Intake Total 0 999 225 Output Total 100 400 400 Balance -100 599 -175 Intake: IV 0 Blood Product 999 225 Output: Urine 100 400 400 Urine, Voided 100 400 400 Other: # Voids Urine, Voided 1 3 - Medications Active Medications: Active Medications Generic Name Dose Route Start Last Admin Trade Name Freq PRN Reason Stop Dose Admin Atorvastatin Calcium 40 mg 07/05/17 13:00 Lipitor PO DAILY DIANA Carvedilol 12.5 mg 07/04/17 21:00 07/05/17 08:48 Coreg PO 12.5 mg Q12 DIANA Administration Pantoprazole Sodium 40 mg/ 100 mls @ 200 mls/hr 07/04/17 15:15 Sodium Chloride IVPB Q5H DIANA 80 MG/HR Isosorbide Mononitrate 60 mg 07/05/17 09:00 07/05/17 08:49 Imdur PO 60 mg DAILY DIANA Administration Lisinopril 5 mg 07/05/17 13:00 Zestril PO DAILY DIANA Morphine Sulfate 2 mg 07/04/17 19:00 Morphine IVP Q4 PRN Pain, Mild (1-3) Nitroglycerin 0.4 mg 07/04/17 15:43 07/05/17 09:18 Nitrostat Sl Tab SL 0.4 mg Q5M PRN Administration Pain, Mild (1-3) Nitroglycerin 1 patch 07/05/17 09:00 07/05/17 08:49 Nitro-Dur 0.2 Mg/Hr Patch TD 1 patch DAILY DIANA Administration - Patient Studies Lab Studies: Lab Studies 07/05/17 07/05/17 07/05/17 Range/Units 11:03 09:10 05:28 WBC (4.8-10.8) K/uL RBC (4.40-5.90) Mil/uL Hgb (12.0-18.0) g/dL Hct (35.0-51.0) % MCV (80.0-94.0) fl MCH (27.0-31.0) pg MCHC (33.0-37.0) g/dL RDW (11.5-14.5) % Plt Count (130-400) K/uL MPV (7.2-11.7) fl Neut % (Auto) (50.0-75.0) % Lymph % (Auto) (20.0-40.0) % [place] % (Auto) (0.0-10.0) % Eos % (Auto) (0.0-4.0) % Baso % (Auto) (0.0-2.0) % Neut # (Auto) (1.8-7.0) K/uL Lymph # (Auto) (1.0-4.3) K/uL [place] # (Auto) (0.0-0.8) K/uL Eos # (Auto) (0.0-0.7) K/uL Baso # (Auto) (0.0-0.2) K/uL PT (9.8-13.1) Seconds INR (0.9-1.2) APTT (25.6-37.1) Seconds Sodium (132-148) mmol/l Potassium (3.6-5.0) MMOL/L Chloride (98-107) mmol/L Carbon Dioxide (22-30) mmol/L Anion Gap (10-20) BUN (9-20) mg/dl Creatinine (0.8-1.5) mg/dl Est GFR ( Amer) Est GFR (Non-Af Amer) POC Glucose (mg/dL) 138 H 148 H (65-110) mg/dL Random Glucose (75-110) mg/dL Calcium (8.4-10.2) mg/dL Magnesium (1.6-2.3) MG/DL Total Bilirubin (0.2-1.3) mg/dl AST (17-59) U/L ALT (21-72) U/L Alkaline Phosphatase (38-126) U/L Troponin I 8.1500 H* (0.00-0.120) ng/mL NT-Pro-B Natriuret Pep (0-900) pg/ml Total Protein (6.3-8.2) G/DL Albumin (3.5-5.0) g/dL Globulin (2.2-3.9) gm/dL Albumin/Globulin Ratio (1.0-2.1) Stool Occult Blood (NEGATIVE) Blood Type Antibody Screen Crossmatch BBK History Checked 07/05/17 07/04/17 07/04/17 Range/Units 00:13 21:07 20:37 WBC 9.6 (4.8-10.8) K/uL RBC 2.64 L (4.40-5.90) Mil/uL Hgb 8.5 L (12.0-18.0) g/dL Hct 25.2 L (35.0-51.0) % MCV 95.4 H (80.0-94.0) fl MCH 32.0 H (27.0-31.0) pg MCHC 33.5 (33.0-37.0) g/dL RDW 15.1 H (11.5-14.5) % Plt Count 219 (130-400) K/uL MPV (7.2-11.7) fl Neut % (Auto) (50.0-75.0) % Lymph % (Auto) (20.0-40.0) % [place] % (Auto) (0.0-10.0) % Eos % (Auto) (0.0-4.0) % Baso % (Auto) (0.0-2.0) % Neut # (Auto) (1.8-7.0) K/uL Lymph # (Auto) (1.0-4.3) K/uL [place] # (Auto) (0.0-0.8) K/uL Eos # (Auto) (0.0-0.7) K/uL Baso # (Auto) (0.0-0.2) K/uL PT (9.8-13.1) Seconds INR (0.9-1.2) APTT (25.6-37.1) Seconds Sodium (132-148) mmol/l Potassium (3.6-5.0) MMOL/L Chloride (98-107) mmol/L Carbon Dioxide (22-30) mmol/L Anion Gap (10-20) BUN (9-20) mg/dl Creatinine (0.8-1.5) mg/dl Est GFR ( Amer) Est GFR (Non-Af Amer) POC Glucose (mg/dL) 218 H (65-110) mg/dL Random Glucose (75-110) mg/dL Calcium (8.4-10.2) mg/dL Magnesium (1.6-2.3) MG/DL Total Bilirubin (0.2-1.3) mg/dl AST (17-59) U/L ALT (21-72) U/L Alkaline Phosphatase (38-126) U/L Troponin I 1.0700 H* (0.00-0.120) ng/mL NT-Pro-B Natriuret Pep (0-900) pg/ml Total Protein (6.3-8.2) G/DL Albumin (3.5-5.0) g/dL Globulin (2.2-3.9) gm/dL Albumin/Globulin Ratio (1.0-2.1) Stool Occult Blood (NEGATIVE) Blood Type Antibody Screen Crossmatch BBK History Checked 07/04/17 07/04/17 07/04/17 Range/Units 17:56 15:50 15:45 WBC (4.8-10.8) K/uL RBC (4.40-5.90) Mil/uL Hgb (12.0-18.0) g/dL Hct (35.0-51.0) % MCV (80.0-94.0) fl MCH (27.0-31.0) pg MCHC (33.0-37.0) g/dL RDW (11.5-14.5) % Plt Count (130-400) K/uL MPV (7.2-11.7) fl Neut % (Auto) (50.0-75.0) % Lymph % (Auto) (20.0-40.0) % [place] % (Auto) (0.0-10.0) % Eos % (Auto) (0.0-4.0) % Baso % (Auto) (0.0-2.0) % Neut # (Auto) (1.8-7.0) K/uL Lymph # (Auto) (1.0-4.3) K/uL [place] # (Auto) (0.0-0.8) K/uL Eos # (Auto) (0.0-0.7) K/uL Baso # (Auto) (0.0-0.2) K/uL PT (9.8-13.1) Seconds INR (0.9-1.2) APTT (25.6-37.1) Seconds Sodium (132-148) mmol/l Potassium (3.6-5.0) MMOL/L Chloride (98-107) mmol/L Carbon Dioxide (22-30) mmol/L Anion Gap (10-20) BUN (9-20) mg/dl Creatinine (0.8-1.5) mg/dl Est GFR ( Amer) Est GFR (Non-Af Amer) POC Glucose (mg/dL) 161 H (65-110) mg/dL Random Glucose (75-110) mg/dL Calcium (8.4-10.2) mg/dL Magnesium (1.6-2.3) MG/DL Total Bilirubin (0.2-1.3) mg/dl AST (17-59) U/L ALT (21-72) U/L Alkaline Phosphatase (38-126) U/L Troponin I (0.00-0.120) ng/mL NT-Pro-B Natriuret Pep (0-900) pg/ml Total Protein (6.3-8.2) G/DL Albumin (3.5-5.0) g/dL Globulin (2.2-3.9) gm/dL Albumin/Globulin Ratio (1.0-2.1) Stool Occult Blood Positive H (NEGATIVE) Blood Type O POSITIVE Antibody Screen Negative Crossmatch See Detail BBK History Checked Patient has bt 07/04/17 07/04/17 07/04/17 Range/Units 14:07 14:07 14:07 WBC 8.1 (4.8-10.8) K/uL RBC 2.35 L (4.40-5.90) Mil/uL Hgb 7.6 L (12.0-18.0) g/dL Hct 22.4 L (35.0-51.0) % MCV 95.4 H (80.0-94.0) fl MCH 32.2 H (27.0-31.0) pg MCHC 33.8 (33.0-37.0) g/dL RDW 15.2 H (11.5-14.5) % Plt Count 198 (130-400) K/uL MPV 8.9 (7.2-11.7) fl Neut % (Auto) 78.1 H (50.0-75.0) % Lymph % (Auto) 13.9 L (20.0-40.0) % [place] % (Auto) 6.5 (0.0-10.0) % Eos % (Auto) 1.0 (0.0-4.0) % Baso % (Auto) 0.5 (0.0-2.0) % Neut # (Auto) 6.3 (1.8-7.0) K/uL Lymph # (Auto) 1.1 (1.0-4.3) K/uL [place] # (Auto) 0.5 (0.0-0.8) K/uL Eos # (Auto) 0.1 (0.0-0.7) K/uL Baso # (Auto) 0.0 (0.0-0.2) K/uL PT 15.0 H (9.8-13.1) Seconds INR 1.3 H (0.9-1.2) APTT 48.9 H (25.6-37.1) Seconds Sodium 139 (132-148) mmol/l Potassium 4.4 (3.6-5.0) MMOL/L Chloride 105 (98-107) mmol/L Carbon Dioxide 22 (22-30) mmol/L Anion Gap 16 (10-20) BUN 26 H (9-20) mg/dl Creatinine 1.4 (0.8-1.5) mg/dl Est GFR ( Amer) 58 Est GFR (Non-Af Amer) 48 POC Glucose (mg/dL) (65-110) mg/dL Random Glucose 156 H (75-110) mg/dL Calcium 9.0 (8.4-10.2) mg/dL Magnesium 2.1 (1.6-2.3) MG/DL Total Bilirubin 0.5 (0.2-1.3) mg/dl AST 19 (17-59) U/L ALT 25 (21-72) U/L Alkaline Phosphatase 67 (38-126) U/L Troponin I 0.0400 (0.00-0.120) ng/mL NT-Pro-B Natriuret Pep 1860 H (0-900) pg/ml Total Protein 6.2 L (6.3-8.2) G/DL Albumin 3.3 L (3.5-5.0) g/dL Globulin 3.0 (2.2-3.9) gm/dL Albumin/Globulin Ratio 1.1 (1.0-2.1) Stool Occult Blood (NEGATIVE) Blood Type Antibody Screen Crossmatch BBK History Checked 07/04/17 Range/Units 14:00 WBC (4.8-10.8) K/uL RBC (4.40-5.90) Mil/uL Hgb (12.0-18.0) g/dL Hct (35.0-51.0) % MCV (80.0-94.0) fl MCH (27.0-31.0) pg MCHC (33.0-37.0) g/dL RDW (11.5-14.5) % Plt Count (130-400) K/uL MPV (7.2-11.7) fl Neut % (Auto) (50.0-75.0) % Lymph % (Auto) (20.0-40.0) % [place] % (Auto) (0.0-10.0) % Eos % (Auto) (0.0-4.0) % Baso % (Auto) (0.0-2.0) % Neut # (Auto) (1.8-7.0) K/uL Lymph # (Auto) (1.0-4.3) K/uL [place] # (Auto) (0.0-0.8) K/uL Eos # (Auto) (0.0-0.7) K/uL Baso # (Auto) (0.0-0.2) K/uL PT (9.8-13.1) Seconds INR (0.9-1.2) APTT (25.6-37.1) Seconds Sodium (132-148) mmol/l Potassium (3.6-5.0) MMOL/L Chloride (98-107) mmol/L Carbon Dioxide (22-30) mmol/L Anion Gap (10-20) BUN (9-20) mg/dl Creatinine (0.8-1.5) mg/dl Est GFR ( Amer) Est GFR (Non-Af Amer) POC Glucose (mg/dL) (65-110) mg/dL Random Glucose (75-110) mg/dL Calcium (8.4-10.2) mg/dL Magnesium (1.6-2.3) MG/DL Total Bilirubin (0.2-1.3) mg/dl AST (17-59) U/L ALT (21-72) U/L Alkaline Phosphatase (38-126) U/L Troponin I (0.00-0.120) ng/mL NT-Pro-B Natriuret Pep (0-900) pg/ml Total Protein (6.3-8.2) G/DL Albumin (3.5-5.0) g/dL Globulin (2.2-3.9) gm/dL Albumin/Globulin Ratio (1.0-2.1) Stool Occult Blood (NEGATIVE) Blood Type O POSITIVE Antibody Screen Negative Crossmatch BBK History Checked Patient has bt Laboratory Results - last 24 hr 07/04/17 07/04/17 07/04/17 14:00 14:07 14:07 WBC 8.1 RBC 2.35 L Hgb 7.6 L Hct 22.4 L MCV 95.4 H MCH 32.2 H MCHC 33.8 RDW 15.2 H Plt Count 198 MPV 8.9 Neut % (Auto) 78.1 H Lymph % (Auto) 13.9 L [place] % (Auto) 6.5 Eos % (Auto) 1.0 Baso % (Auto) 0.5 Neut # (Auto) 6.3 Lymph # (Auto) 1.1 [place] # (Auto) 0.5 Eos # (Auto) 0.1 Baso # (Auto) 0.0 PT INR APTT Sodium 139 Potassium 4.4 Chloride 105 Carbon Dioxide 22 Anion Gap 16 BUN 26 H Creatinine 1.4 Est GFR ( Amer) 58 Est GFR (Non-Af Amer) 48 POC Glucose (mg/dL) Random Glucose 156 H Calcium 9.0 Magnesium 2.1 Total Bilirubin 0.5 AST 19 ALT 25 Alkaline Phosphatase 67 Troponin I 0.0400 NT-Pro-B Natriuret Pep 1860 H Total Protein 6.2 L Albumin 3.3 L Globulin 3.0 Albumin/Globulin Ratio 1.1 Stool Occult Blood Blood Type O POSITIVE Antibody Screen Negative Crossmatch BBK History Checked Patient has bt 07/04/17 07/04/17 07/04/17 14:07 15:45 15:50 WBC RBC Hgb Hct MCV MCH MCHC RDW Plt Count MPV Neut % (Auto) Lymph % (Auto) [place] % (Auto) Eos % (Auto) Baso % (Auto) Neut # (Auto) Lymph # (Auto) [place] # (Auto) Eos # (Auto) Baso # (Auto) PT 15.0 H INR 1.3 H APTT 48.9 H Sodium Potassium Chloride Carbon Dioxide Anion Gap BUN Creatinine Est GFR ( Amer) Est GFR (Non-Af Amer) POC Glucose (mg/dL) Random Glucose Calcium Magnesium Total Bilirubin AST ALT Alkaline Phosphatase Troponin I NT-Pro-B Natriuret Pep Total Protein Albumin Globulin Albumin/Globulin Ratio Stool Occult Blood Positive H Blood Type O POSITIVE Antibody Screen Negative Crossmatch See Detail BBK History Checked Patient has bt 07/04/17 07/04/17 07/04/17 17:56 20:37 21:07 WBC 9.6 RBC 2.64 L Hgb 8.5 L Hct 25.2 L MCV 95.4 H MCH 32.0 H MCHC 33.5 RDW 15.1 H Plt Count 219 MPV Neut % (Auto) Lymph % (Auto) [place] % (Auto) Eos % (Auto) Baso % (Auto) Neut # (Auto) Lymph # (Auto) [place] # (Auto) Eos # (Auto) Baso # (Auto) PT INR APTT Sodium Potassium Chloride Carbon Dioxide Anion Gap BUN Creatinine Est GFR ( Amer) Est GFR (Non-Af Amer) POC Glucose (mg/dL) 161 H 218 H Random Glucose Calcium Magnesium Total Bilirubin AST ALT Alkaline Phosphatase Troponin I NT-Pro-B Natriuret Pep Total Protein Albumin Globulin Albumin/Globulin Ratio Stool Occult Blood Blood Type Antibody Screen Crossmatch BBK History Checked 07/05/17 07/05/17 07/05/17 00:13 05:28 09:10 WBC RBC Hgb Hct MCV MCH MCHC RDW Plt Count MPV Neut % (Auto) Lymph % (Auto) [place] % (Auto) Eos % (Auto) Baso % (Auto) Neut # (Auto) Lymph # (Auto) [place] # (Auto) Eos # (Auto) Baso # (Auto) PT INR APTT Sodium Potassium Chloride Carbon Dioxide Anion Gap BUN Creatinine Est GFR ( Amer) Est GFR (Non-Af Amer) POC Glucose (mg/dL) 148 H Random Glucose Calcium Magnesium Total Bilirubin AST ALT Alkaline Phosphatase Troponin I 1.0700 H* 8.1500 H* NT-Pro-B Natriuret Pep Total Protein Albumin Globulin Albumin/Globulin Ratio Stool Occult Blood Blood Type Antibody Screen Crossmatch BBK History Checked 07/05/17 11:03 WBC RBC Hgb Hct MCV MCH MCHC RDW Plt Count MPV Neut % (Auto) Lymph % (Auto) [place] % (Auto) Eos % (Auto) Baso % (Auto) Neut # (Auto) Lymph # (Auto) [place] # (Auto) Eos # (Auto) Baso # (Auto) PT INR APTT Sodium Potassium Chloride Carbon Dioxide Anion Gap BUN Creatinine Est GFR ( Amer) Est GFR (Non-Af Amer) POC Glucose (mg/dL) 138 H Random Glucose Calcium Magnesium Total Bilirubin AST ALT Alkaline Phosphatase Troponin I NT-Pro-B Natriuret Pep Total Protein Albumin Globulin Albumin/Globulin Ratio Stool Occult Blood Blood Type Antibody Screen Crossmatch BBK History Checked EKG/Cardiology Studies: Cardiology / EKG Studies 07/04/17 13:43 ELECTROCARDIOGRAM Stat Comment: Mode Of Transportation: STRETCHER Reason For Exam: routine 07/04/17 15:44 EKG [ELECTROCARDIOGRAM] Stat Comment: Mode Of Transportation: STRETCHER Reason For Exam: REPEAT CHEST PAIN 07/05/17 EKG [ELECTROCARDIOGRAM] Routine Comment: Mode Of Transportation: Reason For Exam: NSTEMI Fingerstick Blood Sugar Results: 138 Critical Care Progress Note - Nutrition Nutrition: Nutrition Category Date Time Status Liquid Diet [DIET] Diets 07/05/17 Breakfast Active
[2017-07-05] MEDS: Pantoprazole 40 MG in Sodium Chloride 0.9% 100 ML IVPB SCH ×2 (13:24→20:44)
[2017-07-05 13:27] LABS: HEMOGLOBIN 8.8 g/dL (12.0-18.0); MEAN CELL VOLUME 92.8 fl (80.0-94.0); MEAN CORPUSCULAR HEMOGLOBIN 31.4 pg (27.0-31.0); MEAN CORPUSCULAR HGB CONC 33.8 g/dL (33.0-37.0); RBC 2.8 Mil/uL (4.40-5.90); RED CELL DISTRIBUTION WIDTH 15.5 % (11.5-14.5); WHITE BLOOD COUNT 9.8 K/uL (4.8-10.8)
[2017-07-05 13:45] LABS: ALB/GLOB RATIO 1.1 (1.0-2.1); ALBUMIN 3.3 g/dL (3.5-5.0); ALT/SGPT 23 U/L (21-72); AST/SGOT 77 U/L (17-59); BLOOD UREA NITROGEN 19 mg/dl (9-20); CALCIUM 9.2 mg/dL (8.4-10.2); GFR AFRICAN-AMERICAN > 60; GFR NON-AFRICAN AMERICAN > 60
[2017-07-05 14:01] LABS: INR 1.2 (0.9-1.2); PARTIAL THROMBOPLASTIN TIME 36.5 Seconds (25.6-37.1); PROTHROMBIN TIME 12.9 Seconds (9.8-13.1)
--- NOTE | 2017-07-05 15:12 | HP ---
HISTORY OF PRESENT ILLNESS: This is an 89-year-old male with past medical history of multiple medical problems who presented to Emergency Room with chest pain and rectal bleeding. The patient states that for the last 2 days he has noticed bright red blood per rectum during bowel movements. The patient has many episodes of the same. When he started to feel chest pain on the night prior to admission, it was resolved with nitroglycerin, but again the pain recurred on the day of physician and the patient presented to the Emergency Room for evaluation. The patient was found to have hemoglobin of 7.[address] elevation in the EKG. The patient was admitted to Intensive Care Unit for further management. The patient admits that he has exertional shortness of breath and bilateral knee pain. REVIEW OF SYSTEMS: Otherwise review of systems is negative. ALLERGIES: NO KNOWN ALLERGIES. HOME MEDICATIONS: As per MAR. PAST MEDICAL HISTORY: Coronary artery disease, congestive heart failure systolic and diastolic, hypertension, gouty arthritis, and type 2 diabetes mellitus, status post cholecystectomy for cholecystitis. FAMILY HISTORY: Noncontributory. SOCIAL HISTORY: Denies smoking, EtOH or substance abuse. PHYSICAL EXAMINATION: GENERAL: The patient is in bed, not in any cardiopulmonary distress at the time of this examination. VITAL SIGNS: Blood pressure 146/68, temperature 98.3, respiratory rate 16, and pulse 81. HEENT: Pale mucosa of the conjunctivae. NECK: Supple. No JVD. No carotid bruit. No lymph nodes. No thyromegaly. CHEST AND LUNGS: Bilateral symmetrical expansion. Good air exchange. Few basilar rales. CARDIOVASCULAR: PMI not localized. S1 and S2. No additional sounds. ABDOMEN: Normoactive bowel sounds. No tenderness. No organomegaly. No masses. EXTREMITIES: No cyanosis, no clubbing, no edema. PROGRAM ATTENDANT: Alert, awake, and oriented x2. Positive sensorineural deafness and moves all extremities equally without lateralization signs. LABORATORY DATA: Hemoglobin on admission 7.6 and hematocrit 22.4. Troponin on admission 0.04, it went up to 1.07. Occult blood is positive. ASSESSMENT: 1. Rectal bleeding. 2. [id number] myocardial infarction. 3. History of congestive heart failure, both systolic and diastolic. 4. Hypertension. PLAN: GI consult. Cardiology consult. Monitor hemoglobin and hematocrit and transfuse as needed. Proton pump inhibitors. Resume the patient's home medications. [facility] MD Alejandro
--- NOTE | 2017-07-05 15:47 | PQF GENQUE ---
Dr. Allen, The attending physician is required to clarify conflicting documentation in the medical record. The following documentation is noted in the medical record: Diagnosis 1: NSTEMI Documented by: Attending and Supervisor [employer] Diagnosis 2: Stable Angina Documented by: Bulldozer/Loader/Compactor/Scraper Please clarify the appropriate diagnosis for this patient. 07/04 Cardiology consult: Pt has stable angina and has c/o of chest pain in setting of anemia. No evidence of clinical ischemia by EKG or cardiac enymes. This form is a permanent part of the medical record Clarification of your documentation is requested to better reflect the severity of illness and intensity of treatment of your patient. Indicators present [] Specify: [] [] Specify: [] [] Specify: [] [] Specify: [] Location in the medical record that reflects the above clinical findings: [] Treatment Provided: [] PHYSICIAN'S RESPONSE Based on your medical judgment of the clinical indicators outlined above please clarify the following: [] Practitioner response [] If unable to determine, please check the box, sign and date. Present On Admission (POA) Indicator: [] Present at the time of admission [] Not present at the time of admission [] Clinically Undetermined In responding to this query, please exercise your independent professional judgment. The fact that a question is asked does not imply that any particular answer is desired or expected. Thank you for your clarification on this documentation. If you have any questions please call. * Thank you, Emeli Hernandez RN ext. #[phone] MTDD
[2017-07-05 18:49] LABS: HEMOGLOBIN 8.9 g/dL (12.0-18.0); MEAN CELL VOLUME 92.9 fl (80.0-94.0); MEAN CORPUSCULAR HEMOGLOBIN 31.9 pg (27.0-31.0); MEAN CORPUSCULAR HGB CONC 34.4 g/dL (33.0-37.0); RBC 2.79 Mil/uL (4.40-5.90); RED CELL DISTRIBUTION WIDTH 15.5 % (11.5-14.5); WHITE BLOOD COUNT 9.6 K/uL (4.8-10.8)
--- NOTE | 2017-07-05 20:20 | CARD ---
APPROVED REPORT EKG Measurement Heart [id number] [place] [id number] <Conclusion> Sinus rhythm with marked sinus arrhythmia with 1st degree AV block with occasional and consecutive premature ventricular comp Right bundle branch block Left anterior fascicular block Bifascicular block T wave abnormality, consider lateral ischemia Abnormal ECG
--- NOTE | 2017-07-05 20:31 | CARD ---
APPROVED REPORT EKG Measurement Heart [id number] [place] [id number] [id number] <Conclusion> Normal sinus rhythm Right bundle branch block Left anterior fascicular block Bifascicular block Septal infarct, age undetermined Abnormal ECG
--- NOTE | 2017-07-05 20:40 | CARD ---
APPROVED REPORT EKG Measurement Heart [id number] 200P97 [id number] <Conclusion> Sinus rhythm with occasional premature ventricular complexes and premature atrial complexes Left axis deviation Right bundle branch block Abnormal ECG
[2017-07-06] MEDS: Pantoprazole 40 MG in Sodium Chloride 0.9% 100 ML IVPB SCH ×6 (02:30→22:15)
[2017-07-06 05:50] LABS: HEMOGLOBIN 8.8 g/dL (12.0-18.0); MEAN CELL VOLUME 92.7 fl (80.0-94.0); MEAN CORPUSCULAR HEMOGLOBIN 31.5 pg (27.0-31.0); MEAN CORPUSCULAR HGB CONC 33.9 g/dL (33.0-37.0); RBC 2.78 Mil/uL (4.40-5.90); RED CELL DISTRIBUTION WIDTH 15.5 % (11.5-14.5)
[2017-07-06 06:07] LABS: BLOOD UREA NITROGEN 15 mg/dl (9-20); CALCIUM 8.9 mg/dL (8.4-10.2); GFR AFRICAN-AMERICAN > 60; GFR NON-AFRICAN AMERICAN > 60
[2017-07-06] MEDS: Nitroglycerin 0.2 mg/hr Top Patch TD SCH (08:31)
--- NOTE | 2017-07-06 10:47 | CP.PCM.PN ---
<Katerin Nelson - Last Filed: 07/06/17 10:50> Subjective - Date & Time of Evaluation Date of Evaluation: 07/06/17 Time of Evaluation: 08:10 - Subjective Subjective: PGY4 GI Follow-up ' Pt seen and examined bedside pt has no complaints Denies any rectal bleeding tolerating diet denied any abd pain ROS: 10 point ROS conducted, neg other than above Objective - Vital Signs/Intake and Output Vital Signs (last 24 hours): Temp Pulse Resp BP Pulse Ox 98.2 F 80 10 L 115/60 95 07/06/17 08:00 07/06/17 08:31 07/06/17 08:00 07/06/17 08:31 07/06/17 08:00 Intake and Output: 07/06/17 07/06/17 06:59 18:59 Intake Total 550 Output Total 700 200 Balance -150 -200 - Medications Medications: Current Medications Atorvastatin Calcium (Lipitor) 40 mg PO DAILY [facility] Last Admin: 07/06/17 08:31 Dose: 40 mg Carvedilol (Coreg) 12.5 mg PO Q12 [facility] Last Admin: 07/06/17 08:30 Dose: 12.5 mg Pantoprazole Sodium 40 mg/ (Sodium Chloride) 100 mls @ 200 mls/hr IVPB Q5H [facility] PRN Reason: 80 MG/HR Last Admin: 07/06/17 10:38 Dose: 200 mls/hr Isosorbide Mononitrate (Imdur) 60 mg PO DAILY [facility] Last Admin: 07/06/17 08:31 Dose: 60 mg Lisinopril (Zestril) 5 mg PO DAILY [facility] Last Admin: 07/06/17 08:31 Dose: 5 mg Morphine Sulfate (Morphine) 2 mg IVP Q4 PRN PRN Reason: Pain, Mild (1-3) Nitroglycerin (Nitrostat Sl Tab) 0.4 mg SL Q5M PRN PRN Reason: Pain, Mild (1-3) Last Admin: 07/05/17 09:18 Dose: 0.4 mg Nitroglycerin (Nitro-Dur 0.2 Mg/Hr Patch) 1 patch TD DAILY [facility] Last Admin: 07/06/17 08:31 Dose: 1 patch - Labs Labs: 07/06/17 05:10 07/06/17 05:10 PT 12.9 Seconds (9.8-13.1) 07/05/17 13:17 INR 1.2 (0.9-1.2) 18 13:17 APTT 36.5 Seconds (25.6-37.1) D 07/05/17 13:17 - Constitutional Appears: Well, No Acute Distress - Head Exam Head Exam: ATRAUMATIC, NORMOCEPHALIC - Eye Exam Eye Exam: Normal appearance - ENT Exam ENT Exam: Mucous Membranes Moist, Normal Exam - Neck Exam Neck Exam: Normal Inspection - Respiratory Exam Respiratory Exam: Clear to Ausculation Bilateral, NORMAL BREATHING PATTERN. absent: Wheezes - Cardiovascular Exam Cardiovascular Exam: REGULAR RHYTHM, +S1, +S2 - GI/Abdominal Exam GI & Abdominal Exam: Soft, Normal Bowel Sounds. absent: Guarding, Rigid, Tenderness - Extremities Exam Extremities Exam: absent: Joint Swelling, Pedal Edema - Neurological Exam Neurological Exam: Alert, Awake, Oriented x3 - Psychiatric Exam Psychiatric exam: Normal Affect, Normal Mood - Skin Skin Exam: Dry, Intact, Normal Color, Warm Assessment and Plan - Assessment and Plan (Free Text) Assessment: Patient is an 89yo male with PMHx significant for CAD s/p CABG and PCI, systolic CHF with EF 55% in October 2016 (previously 35% and refused AICD), cholecystitis s/p percutaneous cholecystostomy tube (removed 02/2016) and ERCP with plastic biliary stent placed November 2015 and patient lost to follow up, HTN , DM2, 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 who presented to the ED with chest pain and rectal bleeding -Acute blood loss anemia -Acute GI hemorrhage -NSTEMI -Multi-vessel CAD -Systolic CHF -H/O choledocolithiasis s/p ERCP with plastic biliary stent placement Plan: -Patient nonadherent to medications/follow up and unclear if he is using anticoagulation/antiplatelet therapy at home regularly; unclear as well -High risk for EGD/colonoscopy given underlying CAD, ongoing NSTEMI with rising troponin -Supportive care with transfusion support as needed; no further episodes of GI bleeding noted since arrival -Plan re: antiplatelet/anticoagulation per cardiology given ongoing NSTEMI -Patient is hemodynamically stable at this time -Patient had biliary stent placed in 2015 and was lost to F/U, if stent remains , would need to be removed - none noted on plain film -PPI BID - No GI intervention indicated at this time -will sign off D/W Dr. Arriaza <Tito Arriaza - Last Filed: 07/06/17 11:16> Objective - Vital Signs/Intake and Output Vital Signs (last 24 hours): Temp Pulse Resp BP Pulse Ox 98.2 F 80 10 L 115/60 95 07/06/17 08:00 07/06/17 08:31 07/06/17 08:00 07/06/17 08:31 07/06/17 08:00 Intake and Output: 07/06/17 07/06/17 06:59 18:59 Intake Total 550 Output Total 700 200 Balance -150 -200 - Medications Medications: Current Medications Atorvastatin Calcium (Lipitor) 40 mg PO DAILY [facility] Last Admin: 07/06/17 08:31 Dose: 40 mg Carvedilol (Coreg) 12.5 mg PO Q12 [facility] Last Admin: 07/06/17 08:30 Dose: 12.5 mg Pantoprazole Sodium 40 mg/ (Sodium Chloride) 100 mls @ 200 mls/hr IVPB Q5H [facility] PRN Reason: 80 MG/HR Last Admin: 07/06/17 10:38 Dose: 200 mls/hr Isosorbide Mononitrate (Imdur) 60 mg PO DAILY [facility] Last Admin: 07/06/17 08:31 Dose: 60 mg Lisinopril (Zestril) 5 mg PO DAILY [facility] Last Admin: 07/06/17 08:31 Dose: 5 mg Morphine Sulfate (Morphine) 2 mg IVP Q4 PRN PRN Reason: Pain, Mild (1-3) Nitroglycerin (Nitrostat Sl Tab) 0.4 mg SL Q5M PRN PRN Reason: Pain, Mild (1-3) Last Admin: 07/05/17 09:18 Dose: 0.4 mg Nitroglycerin (Nitro-Dur 0.2 Mg/Hr Patch) 1 patch TD DAILY [facility] Last Admin: 07/06/17 08:31 Dose: 1 patch - Labs Labs: 07/06/17 05:10 07/06/17 05:10 PT 12.9 Seconds (9.8-13.1) 07/05/17 13:17 INR 1.2 (0.9-1.2) 07/05/17 13:17 APTT 36.5 Seconds (25.6-37.1) D 03/30/18 13:17 Attending/Attestation - Attestation I have personally seen and examined this patient.: Yes I have fully participated in the care of the patient.: Yes I have reviewed all pertinent clinical information, including history, physical exam and plan: Yes Notes (Text): 07/06/17 11:15 89 year old male with h/o CAD s/p CABG, CHF, cholecystitis s/p percutaneous cholecystostomy tube (removed 02/2016), HTN, HLD, Cholangitis s/p prior ercp now admitted with NSTEMI and GI bleed/anemia. Patient's bleeding has stopped. Hgb stable without tranfusion. Recommend PPI therapy. No plans for endoscopy due to severe cardiac disease and absence of ongoing GI bleeding. Will sign off. Management of NSTEMI per cardiology.
--- NOTE | 2017-07-06 14:37 | CP.CCUPN ---
CCU Subjective - Physician Review Events Since Last Encounter (Free Text): 07/06/17 14:43 The patient was Seen/interviewed and examined by me at the bedside during ICU round, Medical records reviewed and Management issues were discussed and formulated with the house staff. Events reviewed Clinically, hemodynamically improved No Vasopressors NO Chest pain/SOB Alert and oriented Breathing unlabored, on room air O2 sat 100%. CCU Objective - Vital Signs / Intake & Output Vital Signs (Last 4 hours): Vital Signs Temp Pulse Resp BP Pulse Ox 07/06/17 12:00 98.2 F 73 20 110/48 L 95 Intake and Output (Last 8hrs): Intake & Output 07/05/17 07/06/17 07/06/17 22:59 06:59 14:59 Intake Total 250 300 Output Total 100 600 200 Balance 150 -300 -200 Weight 180 lb Intake: Intake, Piggyback 100 300 Oral 150 Output: Urine 100 600 200 Urine, Voided 100 600 200 Other: # Bowel Movements 3 - Physical Exam Head: Positive for: Atraumatic, Normocephalic Pupils: Positive for: PERRL Extroacular Muscles: Positive for: EOMI Conjunctiva: Positive for: Normal Ears: Positive for: Normal Mouth: Positive for: Moist Mucous Membranes Nose (Internal): Positive for: Normal Inspection Neck: Positive for: Normal Range of Motion, Trachea Midline. Negative for: Meningeal Signs, MIDLINE TENDERNESS, Paraspinal Tenderness, JVD, Lymphadenopathy , Bruit, Other Respiratory/Chest: Positive for: Clear to Auscultation, Good Air Exchange. Negative for: Respiratory Distress, Accessory Muscle Use, Wheezes, Decreased Breath Sounds, Rales, Retracting, Rhonchi, Tachypneic, Tender to Palpation, Other Cardiovascular: Positive for: Normal S1, S2, Irregular Rhythm, Peripheal Pulses Present. Negative for: Murmurs, Tachycardic, Bradycardic Abdomen: Positive for: Normal Bowel Sounds. Negative for: Tenderness, Distention Upper Extremity: Positive for: Normal Inspection. Negative for: Edema Lower Extremity: Positive for: Edema. Negative for: CALF TENDERNESS Neurological: Positive for: GCS=15, CN II-XII Intact, Speech Normal, Motor Func Grossly Intact, Normal Sensory Function Psychiatric: Positive for: Alert, Oriented x 3, Normal Insight - Medications Active Medications: Active Medications Generic Name Dose Route Start Last Admin Trade Name Freq PRN Reason Stop Dose Admin Atorvastatin Calcium 40 mg 07/05/17 13:00 07/06/17 08:31 Lipitor PO 40 mg DAILY [facility] Administration Carvedilol 12.5 mg 07/04/17 21:00 07/06/17 08:30 Coreg PO 12.5 mg Q12 [facility] Administration Pantoprazole Sodium 40 mg/ 100 mls @ 200 mls/hr 07/04/17 15:15 07/06/17 10:38 Sodium Chloride IVPB 200 mls/hr Q5H [facility] Administration 80 MG/HR Isosorbide Mononitrate 60 mg 07/05/17 09:00 07/06/17 08:31 Imdur PO 60 mg DAILY [facility] Administration Lisinopril 5 mg 07/05/17 13:00 07/06/17 08:31 Zestril PO 5 mg DAILY [facility] Administration Morphine Sulfate 2 mg 07/04/17 19:00 Morphine IVP Q4 PRN Pain, Mild (1-3) Nitroglycerin 0.4 mg 07/04/17 15:43 07/05/17 09:18 Nitrostat Sl Tab SL 0.4 mg Q5M PRN Administration Pain, Mild (1-3) Nitroglycerin 1 patch 07/05/17 09:00 07/06/17 08:31 Nitro-Dur 0.2 Mg/Hr Patch TD 1 patch DAILY [facility] Administration - Patient Studies Lab Studies: Microbiology Studies 07/04/17 08:22 MRSA Culture (Admit) - Final Naris MRSA NOT DETECTED Lab Studies 07/06/17 07/06/17 07/06/17 Range/Units 11:24 05:29 05:10 WBC (4.8-10.8) K/uL RBC (4.40-5.90) Mil/uL Hgb (12.0-18.0) g/dL Hct (35.0-51.0) % MCV (80.0-94.0) fl MCH (27.0-31.0) pg MCHC (33.0-37.0) g/dL RDW (11.5-14.5) % Plt Count (130-400) K/uL Sodium 139 (132-148) mmol/l Potassium 3.9 (3.6-5.0) MMOL/L Chloride 106 (98-107) mmol/L Carbon Dioxide 25 (22-30) mmol/L Anion Gap 12 (10-20) BUN 15 (9-20) mg/dl Creatinine 1.0 (0.8-1.5) mg/dl Est GFR ( Amer) > 60 Est GFR (Non-Af Amer) > 60 POC Glucose (mg/dL) 191 H 144 H (65-110) mg/dL Random Glucose 122 H (75-110) mg/dL Calcium 8.9 (8.4-10.2) mg/dL 07/06/17 07/05/17 07/05/17 Range/Units 05:10 20:57 18:09 WBC 9.0 9.6 (4.8-10.8) K/uL RBC 2.78 L 2.79 L (4.40-5.90) Mil/uL Hgb 8.8 L 8.9 L (12.0-18.0) g/dL Hct 25.8 L 25.9 L (35.0-51.0) % MCV 92.7 92.9 (80.0-94.0) fl MCH 31.5 H 31.9 H (27.0-31.0) pg MCHC 33.9 34.4 (33.0-37.0) g/dL RDW 15.5 H 15.5 H (11.5-14.5) % Plt Count 176 186 (130-400) K/uL Sodium (132-148) mmol/l Potassium (3.6-5.0) MMOL/L Chloride (98-107) mmol/L Carbon Dioxide (22-30) mmol/L Anion Gap (10-20) BUN (9-20) mg/dl Creatinine (0.8-1.5) mg/dl Est GFR ( Amer) Est GFR (Non-Af Amer) POC Glucose (mg/dL) 147 H (65-110) mg/dL Random Glucose (75-110) mg/dL Calcium (8.4-10.2) mg/dL 07/05/17 Range/Units 16:46 WBC (4.8-10.8) K/uL RBC (4.40-5.90) Mil/uL Hgb (12.0-18.0) g/dL Hct (35.0-51.0) % MCV (80.0-94.0) fl MCH (27.0-31.0) pg MCHC (33.0-37.0) g/dL RDW (11.5-14.5) % Plt Count (130-400) K/uL Sodium (132-148) mmol/l Potassium (3.6-5.0) MMOL/L Chloride (98-107) mmol/L Carbon Dioxide (22-30) mmol/L Anion Gap (10-20) BUN (9-20) mg/dl Creatinine (0.8-1.5) mg/dl Est GFR ( Amer) Est GFR (Non-Af Amer) POC Glucose (mg/dL) 190 H (65-110) mg/dL Random Glucose (75-110) mg/dL Calcium (8.4-10.2) mg/dL Laboratory Results - last 24 hr 07/05/17 07/05/17 07/05/17 16:46 18:09 20:57 WBC 9.6 RBC 2.79 L Hgb 8.9 L Hct 25.9 L MCV 92.9 MCH 31.9 H MCHC 34.4 RDW 15.5 H Plt Count 186 Sodium Potassium Chloride Carbon Dioxide Anion Gap BUN Creatinine Est GFR ( Amer) Est GFR (Non-Af Amer) POC Glucose (mg/dL) 190 H 147 H Random Glucose Calcium 07/06/17 07/06/17 07/06/17 05:10 05:10 05:29 WBC 9.0 RBC 2.78 L Hgb 8.8 L Hct 25.8 L MCV 92.7 MCH 31.5 H MCHC 33.9 RDW 15.5 H Plt Count 176 Sodium 139 Potassium 3.9 Chloride 106 Carbon Dioxide 25 Anion Gap 12 BUN 15 Creatinine 1.0 Est GFR ( Amer) > 60 Est GFR (Non-Af Amer) > 60 POC Glucose (mg/dL) 144 H Random Glucose 122 H Calcium 8.9 07/06/17 11:24 WBC RBC Hgb Hct MCV MCH MCHC RDW Plt Count Sodium Potassium Chloride Carbon Dioxide Anion Gap BUN Creatinine Est GFR ( Amer) Est GFR (Non-Af Amer) POC Glucose (mg/dL) 191 H Random Glucose Calcium Fingerstick Blood Sugar Results: 191 Review of Systems - Cardiovascular Cardiovascular: absent: Chest Pain, Chest Pain at Rest, Chest Pain with Activity - Respiratory Respiratory: absent: Cough, Dyspnea, Hemoptysis Critical Care Progress Note - Nutrition Nutrition: Nutrition Category Date Time Status Liquid Diet [DIET] Diets 07/05/17 Breakfast Active Assessment/Plan (1) Acute non-ST elevation myocardial infarction (NSTEMI) Current Visit: Yes Status: Acute Comment: Continue BBs, nitrates, statin and ACEi. AC, ASA and Plavix on Hold Cardiology evaluation appretiated (2) Acute upper GI bleeding Current Visit: Yes Status: Acute Comment: No evidance of active bleed at this time, H/H stable No GI intervention indicated as per GI given High risk for EGD/colonoscopy Continue Pantoprazole gtt @ 200 mls/hr IVPB (3) COPD (chronic obstructive pulmonary disease) Current Visit: No Status: Chronic (4) Chronic atrial fibrillation Current Visit: No Status: Chronic (5) Chronic systolic CHF (congestive heart failure) Current Visit: No Status: Chronic (6) DM2 (diabetes mellitus, type 2) Current Visit: No Status: Chronic Comment: (7) Ischemic dilated cardiomyopathy Current Visit: No Status: Chronic Priority: Medium Comment: continue with meds. As it is chronic in nature ,no need for evaluvation for AICD at this time as per cardiolgy. patient is transfered to service after discussing about disease management. (8) Persistent atrial fibrillation Current Visit: No Status: Chronic Priority: High
[2017-07-06 16:21] LABS: BLOOD UREA NITROGEN 13 mg/dl (9-20); CALCIUM 8.9 mg/dL (8.4-10.2); GFR AFRICAN-AMERICAN > 60; GFR NON-AFRICAN AMERICAN > 60
[2017-07-06 16:22] LABS: MEAN CELL VOLUME 93.8 fl (80.0-94.0); MEAN CORPUSCULAR HEMOGLOBIN 31.6 pg (27.0-31.0); MEAN CORPUSCULAR HGB CONC 33.7 g/dL (33.0-37.0); RBC 2.84 Mil/uL (4.40-5.90); RED CELL DISTRIBUTION WIDTH 15.4 % (11.5-14.5); WHITE BLOOD COUNT 8.3 K/uL (4.8-10.8)
--- NOTE | 2017-07-06 22:29 | PN ---
DAILY PROGRESS NOTE DATE: 07/06/2017 SUBJECTIVE: The patient is seen today on 07/06/2017. He had small bloody bowel movement in the morning today. PHYSICAL EXAMINATION: VITAL SIGNS: Blood pressure 146/69, temperature 97.8, respiratory rate 15 and pulse 66. HEENT: Pupils equal, round and reactive to light. Pale mucosa of the conjunctivae. NECK: Supple. No JVD. No carotid bruit. No lymph node. No thyromegaly. CHEST AND LUNGS: Bilateral symmetrical expansion. Good air exchange. No rales. No rhonchi. CARDIOVASCULAR SYSTEM: PMI not localized. S1 and S2. No additional sounds. ABDOMEN: Normoactive bowel sounds. No tenderness. No organomegaly. No masses. EXTREMITIES: No cyanosis. No clubbing. No edema. ELECTRICIAN MASTER: Alert, awake and oriented x2. No neurological deficit could be appreciated. ASSESSMENT: 1. Lower gastrointestinal bleeding. 2. Non-ST elevation myocardial infarction. 3. History of congestive heart failure. 4. Anemia of acute blood loss. PLAN: Continue the monitoring of hemoglobin and hematocrit. Follow GI and Cardiology recommendations. Continue proton pump inhibitors. Inderjit Allen MD
[2017-07-07 05:40] LABS: HEMOGLOBIN 8.6 g/dL (12.0-18.0); MEAN CORPUSCULAR HEMOGLOBIN 31.4 pg (27.0-31.0); MEAN CORPUSCULAR HGB CONC 33.5 g/dL (33.0-37.0); RBC 2.72 Mil/uL (4.40-5.90); RED CELL DISTRIBUTION WIDTH 15.3 % (11.5-14.5); WHITE BLOOD COUNT 7.6 K/uL (4.8-10.8)
[2017-07-07 05:53] LABS: ALBUMIN 2.9 g/dL (3.5-5.0); ALT/SGPT 26 U/L (21-72); AST/SGOT 42 U/L (17-59); BLOOD UREA NITROGEN 11 mg/dl (9-20); GFR AFRICAN-AMERICAN > 60; GFR NON-AFRICAN AMERICAN > 60
[2017-07-07] MEDS: Nitroglycerin 0.2 mg/hr Top Patch TD SCH (08:13)
--- NOTE | 2017-07-07 09:02 | CP.PCM.PN ---
Subjective - Date & Time of Evaluation Date of Evaluation: 07/07/17 Time of Evaluation: 08:15 - Subjective Subjective: Patient seen and examined at bedside. Patient has no specific complaints. Patient admits to be actively smoking "cigars." Patient understands that he cannot smoke in the hospital. Objective - Vital Signs/Intake and Output Vital Signs (last 24 hours): Temp Pulse Resp BP Pulse Ox 98.4 F 77 15 147/56 L 95 07/07/17 00:00 07/07/17 08:13 07/07/17 06:00 07/07/17 08:13 07/06/17 12:00 Intake and Output: 07/07/17 07/07/17 06:59 18:59 Intake Total 40 Output Total 200 Balance -160 - Medications Medications: Current Medications Atorvastatin Calcium (Lipitor) 40 mg PO DAILY [facility] Last Admin: 07/07/17 08:12 Dose: 40 mg Carvedilol (Coreg) 12.5 mg PO Q12 [facility] Last Admin: 07/07/17 08:12 Dose: 12.5 mg Isosorbide Mononitrate (Imdur) 60 mg PO DAILY [facility] Last Admin: 07/07/17 08:15 Dose: 60 mg Lisinopril (Zestril) 5 mg PO DAILY [facility] Last Admin: 07/07/17 08:12 Dose: 5 mg Morphine Sulfate (Morphine) 2 mg IVP Q4 PRN PRN Reason: Pain, Mild (1-3) Nitroglycerin (Nitrostat Sl Tab) 0.4 mg SL Q5M PRN PRN Reason: Pain, Mild (1-3) Last Admin: 07/05/17 09:18 Dose: 0.4 mg Nitroglycerin (Nitro-Dur 0.2 Mg/Hr Patch) 1 patch TD DAILY [facility] Last Admin: 07/07/17 08:13 Dose: 1 patch Pantoprazole Sodium (Protonix Inj) 40 mg IVP Q12H [facility] Temazepam (Restoril) 15 mg PO HS PRN PRN Reason: Insomnia Last Admin: 07/07/17 01:04 Dose: 15 mg - Labs Labs: 07/07/17 05:10 07/07/17 05:10 PT 12.9 Seconds (9.8-13.1) 07/05/17 13:17 INR 1.2 (0.9-1.2) 07/05/17 13:17 APTT 36.5 Seconds (25.6-37.1) D 07/05/17 13:17 - Constitutional Appears: Well, No Acute Distress - Head Exam Head Exam: ATRAUMATIC, NORMAL INSPECTION - Eye Exam Eye Exam: EOMI, Normal appearance - Respiratory Exam Respiratory Exam: Clear to Ausculation Bilateral, NORMAL BREATHING PATTERN - Cardiovascular Exam Cardiovascular Exam: REGULAR RHYTHM, +S1, +S2, +S4 - GI/Abdominal Exam GI & Abdominal Exam: Soft, Normal Bowel Sounds - Extremities Exam Extremities Exam: Full ROM Assessment and Plan - Assessment and Plan (Free Text) Assessment: -CAD/NSTEMI/Chronic systolic heart failure:rate controlled, patient strongly advised to stop smoking: continue beta jose, nitrates, statin and lisinopril , monitor urine output. Patient off AC/antiplatelets 2nd Gi bleed -Gi Bleed: no BM today, (+) BUN low, c/w likely lower Gi bleed, hb stable, monitor on ppi -Gi bleed: stable hemodynamics -h/o A-fib: currently in sinus -COPD:no active wheezing, continue maintenance contineu dvt/pud:SCDs/protonix Patient remains hemodyamically stable.
[2017-07-07 15:43] LABS: BASO % 0.3 % (0.0-2.0); EOS # 0.2 K/uL (0.0-0.7); EOS % 2.9 % (0.0-4.0); HEMOGLOBIN 8.7 g/dL (12.0-18.0); LYMPH # 0.9 K/uL (1.0-4.3); MEAN CORPUSCULAR HEMOGLOBIN 31.6 pg (27.0-31.0); MEAN CORPUSCULAR HGB CONC 33.7 g/dL (33.0-37.0); MEAN PLATELET VOLUME 8.4 fl (7.2-11.7); MONO # 0.5 K/uL (0.0-0.8); MONO % 7.3 % (0.0-10.0); NEUT # 4.8 K/uL (1.8-7.0); NEUT % 75.5 % (50.0-75.0); NRBC % 0.5 % (0.0-0.0); RBC 2.76 Mil/uL (4.40-5.90); RED CELL DISTRIBUTION WIDTH 15.1 % (11.5-14.5); WHITE BLOOD COUNT 6.4 K/uL (4.8-10.8)
[2017-07-08 06:02] LABS: BASO % 0.7 % (0.0-2.0); EOS # 0.2 K/uL (0.0-0.7); HEMOGLOBIN 8.3 g/dL (12.0-18.0); LYMPH # 1.5 K/uL (1.0-4.3); LYMPH % 21.4 % (20.0-40.0); MEAN CELL VOLUME 93.4 fl (80.0-94.0); MEAN CORPUSCULAR HEMOGLOBIN 31.8 pg (27.0-31.0); MEAN CORPUSCULAR HGB CONC 34.1 g/dL (33.0-37.0); MEAN PLATELET VOLUME 8.5 fl (7.2-11.7); MONO # 0.6 K/uL (0.0-0.8); MONO % 8.7 % (0.0-10.0); NEUT # 4.6 K/uL (1.8-7.0); NEUT % 66.2 % (50.0-75.0); NRBC % 0.1 % (0.0-0.0); RBC 2.61 Mil/uL (4.40-5.90); RED CELL DISTRIBUTION WIDTH 15.1 % (11.5-14.5); WHITE BLOOD COUNT 6.9 K/uL (4.8-10.8)
[2017-07-08 06:27] LABS: ALBUMIN 2.9 g/dL (3.5-5.0); ALT/SGPT 29 U/L (21-72); AST/SGOT 33 U/L (17-59); BLOOD UREA NITROGEN 10 mg/dl (9-20); GFR AFRICAN-AMERICAN > 60; GFR NON-AFRICAN AMERICAN > 60
[2017-07-08] MEDS: Morphine 4 MG/ML VIAL IVP PRN (06:53)
[2017-07-08] MEDS: Nitroglycerin 0.2 mg/hr Top Patch TD SCH (09:08)
--- NOTE | 2017-07-08 11:47 | CP.CCUPN ---
CCU Subjective - Physician Review Events Since Last Encounter (Free Text): 07/08/17 11:46 The patient was Seen/interviewed and examined by me at the bedside during ICU round, Medical records reviewed and Management issues were discussed and formulated with the house staff. Events reviewed Clinically, hemodynamically improved No Vasopressors NO Chest pain/SOB Alert and oriented Breathing unlabored, on room air O2 sat 100%. Had 2 episodes of melena over last 24H This morning labs revealed Stable H/H CCU Objective - Vital Signs / Intake & Output Vital Signs (Last 4 hours): Vital Signs Temp Pulse Resp BP Pulse Ox 07/08/17 10:00 88 20 139/60 98 07/08/17 09:09 75 146/78 07/08/17 09:08 77 148/76 07/08/17 08:00 98.1 F 74 16 121/59 L 100 Intake and Output (Last 8hrs): Intake & Output 07/07/17 07/08/17 07/08/17 22:59 06:59 14:59 Output Total 400 650 Balance -400 -650 Output: Urine 400 650 Urine, Voided 400 650 - Physical Exam Head: Positive for: Atraumatic, Normocephalic Pupils: Positive for: PERRL Extroacular Muscles: Positive for: EOMI Conjunctiva: Positive for: Normal Ears: Positive for: Normal Mouth: Positive for: Moist Mucous Membranes Nose (Internal): Positive for: Normal Inspection Neck: Positive for: Normal Range of Motion, Trachea Midline. Negative for: Meningeal Signs, MIDLINE TENDERNESS, Paraspinal Tenderness, JVD, Lymphadenopathy , Bruit, Other Respiratory/Chest: Positive for: Clear to Auscultation, Good Air Exchange. Negative for: Respiratory Distress, Accessory Muscle Use, Wheezes, Decreased Breath Sounds, Rales, Retracting, Rhonchi, Tachypneic, Tender to Palpation, Other Cardiovascular: Positive for: Normal S1, S2, Irregular Rhythm, Peripheal Pulses Present. Negative for: Murmurs, Tachycardic, Bradycardic Abdomen: Positive for: Normal Bowel Sounds. Negative for: Tenderness, Distention Upper Extremity: Positive for: Normal Inspection. Negative for: Edema Lower Extremity: Positive for: Edema. Negative for: CALF TENDERNESS Neurological: Positive for: GCS=15, CN II-XII Intact, Speech Normal, Motor Func Grossly Intact, Normal Sensory Function Psychiatric: Positive for: Alert, Oriented x 3, Normal Insight - Medications Active Medications: Active Medications Generic Name Dose Route Start Last Admin Trade Name Freq PRN Reason Stop Dose Admin Atorvastatin Calcium 40 mg 07/05/17 13:00 07/08/17 09:09 Lipitor PO 40 mg DAILY DIANA Administration Carvedilol 12.5 mg 07/04/17 21:00 07/08/17 09:08 Coreg PO 12.5 mg Q12 DIANA Administration Isosorbide Mononitrate 60 mg 07/05/17 09:00 07/08/17 09:08 Imdur PO 60 mg DAILY DIANA Administration Lisinopril 5 mg 07/05/17 13:00 07/08/17 09:09 Zestril PO 5 mg DAILY DIANA Administration Morphine Sulfate 2 mg 07/04/17 19:00 07/08/17 06:53 Morphine IVP 2 mg Q4 PRN Administration Pain, Mild (1-3) Nitroglycerin 0.4 mg 07/04/17 15:43 07/08/17 04:45 Nitrostat Sl Tab SL 0.4 mg Q5M PRN Administration Pain, Mild (1-3) Nitroglycerin 1 patch 07/05/17 09:00 07/08/17 09:08 Nitro-Dur 0.2 Mg/Hr Patch TD 1 patch DAILY DIANA Administration Pantoprazole Sodium 40 mg 07/07/17 08:15 07/08/17 09:09 Protonix Inj IVP 40 mg Q12H DIANA Administration Temazepam 15 mg 07/07/17 00:24 07/07/17 01:04 Restoril PO 15 mg HS PRN Administration Insomnia - Patient Studies Lab Studies: Lab Studies 07/08/17 07/08/17 07/08/17 Range/Units 11:12 06:29 04:20 WBC (4.8-10.8) K/uL RBC (4.40-5.90) Mil/uL Hgb (12.0-18.0) g/dL Hct (35.0-51.0) % MCV (80.0-94.0) fl MCH (27.0-31.0) pg MCHC (33.0-37.0) g/dL RDW (11.5-14.5) % Plt Count (130-400) K/uL MPV (7.2-11.7) fl Neut % (Auto) (50.0-75.0) % Lymph % (Auto) (20.0-40.0) % [place] % (Auto) (0.0-10.0) % Eos % (Auto) (0.0-4.0) % Baso % (Auto) (0.0-2.0) % Neut # (Auto) (1.8-7.0) K/uL Lymph # (Auto) (1.0-4.3) K/uL [place] # (Auto) (0.0-0.8) K/uL Eos # (Auto) (0.0-0.7) K/uL Baso # (Auto) (0.0-0.2) K/uL Sodium 140 (132-148) mmol/l Potassium 4.3 (3.6-5.0) MMOL/L Chloride 107 (98-107) mmol/L Carbon Dioxide 24 (22-30) mmol/L Anion Gap 13 (10-20) BUN 10 (9-20) mg/dl Creatinine 1.0 (0.8-1.5) mg/dl Est GFR ( Amer) > 60 Est GFR (Non-Af Amer) > 60 POC Glucose (mg/dL) 243 H 124 H (65-110) mg/dL Random Glucose 112 H (75-110) mg/dL Calcium 9.0 (8.4-10.2) mg/dL Phosphorus 2.8 (2.5-4.5) mg/dl Magnesium 2.0 (1.6-2.3) MG/DL Total Bilirubin 0.5 (0.2-1.3) mg/dl AST 33 (17-59) U/L ALT 29 (21-72) U/L Alkaline Phosphatase 75 (38-126) U/L Troponin I 2.7400 H* (0.00-0.120) ng/mL Total Protein 5.8 L (6.3-8.2) G/DL Albumin 2.9 L (3.5-5.0) g/dL Globulin 2.9 (2.2-3.9) gm/dL Albumin/Globulin Ratio 1.0 (1.0-2.1) 07/08/17 07/07/17 07/07/17 Range/Units 04:20 20:44 16:02 WBC 6.9 (4.8-10.8) K/uL RBC 2.61 L (4.40-5.90) Mil/uL Hgb 8.3 L (12.0-18.0) g/dL Hct 24.4 L (35.0-51.0) % MCV 93.4 (80.0-94.0) fl MCH 31.8 H (27.0-31.0) pg MCHC 34.1 (33.0-37.0) g/dL RDW 15.1 H (11.5-14.5) % Plt Count 200 (130-400) K/uL MPV 8.5 (7.2-11.7) fl Neut % (Auto) 66.2 (50.0-75.0) % Lymph % (Auto) 21.4 (20.0-40.0) % [place] % (Auto) 8.7 (0.0-10.0) % Eos % (Auto) 3.0 (0.0-4.0) % Baso % (Auto) 0.7 (0.0-2.0) % Neut # (Auto) 4.6 (1.8-7.0) K/uL Lymph # (Auto) 1.5 (1.0-4.3) K/uL [place] # (Auto) 0.6 (0.0-0.8) K/uL Eos # (Auto) 0.2 (0.0-0.7) K/uL Baso # (Auto) 0.0 (0.0-0.2) K/uL Sodium (132-148) mmol/l Potassium (3.6-5.0) MMOL/L Chloride (98-107) mmol/L Carbon Dioxide (22-30) mmol/L Anion Gap (10-20) BUN (9-20) mg/dl Creatinine (0.8-1.5) mg/dl Est GFR ( Amer) Est GFR (Non-Af Amer) POC Glucose (mg/dL) 167 H 165 H (65-110) mg/dL Random Glucose (75-110) mg/dL Calcium (8.4-10.2) mg/dL Phosphorus (2.5-4.5) mg/dl Magnesium (1.6-2.3) MG/DL Total Bilirubin (0.2-1.3) mg/dl AST (17-59) U/L ALT (21-72) U/L Alkaline Phosphatase (38-126) U/L Troponin I (0.00-0.120) ng/mL Total Protein (6.3-8.2) G/DL Albumin (3.5-5.0) g/dL Globulin (2.2-3.9) gm/dL Albumin/Globulin Ratio (1.0-2.1) 07/07/17 07/07/17 Range/Units 15:30 11:51 WBC 6.4 (4.8-10.8) K/uL RBC 2.76 L (4.40-5.90) Mil/uL Hgb 8.7 L (12.0-18.0) g/dL Hct 26.0 L (35.0-51.0) % MCV 94.0 (80.0-94.0) fl MCH 31.6 H (27.0-31.0) pg MCHC 33.7 (33.0-37.0) g/dL RDW 15.1 H (11.5-14.5) % Plt Count 223 (130-400) K/uL MPV 8.4 (7.2-11.7) fl Neut % (Auto) 75.5 H (50.0-75.0) % Lymph % (Auto) 14.0 L (20.0-40.0) % [place] % (Auto) 7.3 (0.0-10.0) % Eos % (Auto) 2.9 (0.0-4.0) % Baso % (Auto) 0.3 (0.0-2.0) % Neut # (Auto) 4.8 (1.8-7.0) K/uL Lymph # (Auto) 0.9 L (1.0-4.3) K/uL [place] # (Auto) 0.5 (0.0-0.8) K/uL Eos # (Auto) 0.2 (0.0-0.7) K/uL Baso # (Auto) 0.0 (0.0-0.2) K/uL Sodium (132-148) mmol/l Potassium (3.6-5.0) MMOL/L Chloride (98-107) mmol/L Carbon Dioxide (22-30) mmol/L Anion Gap (10-20) BUN (9-20) mg/dl Creatinine (0.8-1.5) mg/dl Est GFR ( Amer) Est GFR (Non-Af Amer) POC Glucose (mg/dL) 145 H (65-110) mg/dL Random Glucose (75-110) mg/dL Calcium (8.4-10.2) mg/dL Phosphorus (2.5-4.5) mg/dl Magnesium (1.6-2.3) MG/DL Total Bilirubin (0.2-1.3) mg/dl AST (17-59) U/L ALT (21-72) U/L Alkaline Phosphatase (38-126) U/L Troponin I (0.00-0.120) ng/mL Total Protein (6.3-8.2) G/DL Albumin (3.5-5.0) g/dL Globulin (2.2-3.9) gm/dL Albumin/Globulin Ratio (1.0-2.1) Laboratory Results - last 24 hr 07/07/17 07/07/17 07/07/17 11:51 15:30 16:02 WBC 6.4 RBC 2.76 L Hgb 8.7 L Hct 26.0 L MCV 94.0 MCH 31.6 H MCHC 33.7 RDW 15.1 H Plt Count 223 MPV 8.4 Neut % (Auto) 75.5 H Lymph % (Auto) 14.0 L [place] % (Auto) 7.3 Eos % (Auto) 2.9 Baso % (Auto) 0.3 Neut # (Auto) 4.8 Lymph # (Auto) 0.9 L [place] # (Auto) 0.5 Eos # (Auto) 0.2 Baso # (Auto) 0.0 Sodium Potassium Chloride Carbon Dioxide Anion Gap BUN Creatinine Est GFR ( Amer) Est GFR (Non-Af Amer) POC Glucose (mg/dL) 145 H 165 H Random Glucose Calcium Phosphorus Magnesium Total Bilirubin AST ALT Alkaline Phosphatase Troponin I Total Protein Albumin Globulin Albumin/Globulin Ratio 07/07/17 07/08/17 07/08/17 20:44 04:20 04:20 WBC 6.9 RBC 2.61 L Hgb 8.3 L Hct 24.4 L MCV 93.4 MCH 31.8 H MCHC 34.1 RDW 15.1 H Plt Count 200 MPV 8.5 Neut % (Auto) 66.2 Lymph % (Auto) 21.4 [place] % (Auto) 8.7 Eos % (Auto) 3.0 Baso % (Auto) 0.7 Neut # (Auto) 4.6 Lymph # (Auto) 1.5 [place] # (Auto) 0.6 Eos # (Auto) 0.2 Baso # (Auto) 0.0 Sodium 140 Potassium 4.3 Chloride 107 Carbon Dioxide 24 Anion Gap 13 BUN 10 Creatinine 1.0 Est GFR ( Amer) > 60 Est GFR (Non-Af Amer) > 60 POC Glucose (mg/dL) 167 H Random Glucose 112 H Calcium 9.0 Phosphorus 2.8 Magnesium 2.0 Total Bilirubin 0.5 AST 33 ALT 29 Alkaline Phosphatase 75 Troponin I 2.7400 H* Total Protein 5.8 L Albumin 2.9 L Globulin 2.9 Albumin/Globulin Ratio 1.0 07/08/17 07/08/17 06:29 11:12 WBC RBC Hgb Hct MCV MCH MCHC RDW Plt Count MPV Neut % (Auto) Lymph % (Auto) [place] % (Auto) Eos % (Auto) Baso % (Auto) Neut # (Auto) Lymph # (Auto) [place] # (Auto) Eos # (Auto) Baso # (Auto) Sodium Potassium Chloride Carbon Dioxide Anion Gap BUN Creatinine Est GFR ( Amer) Est GFR (Non-Af Amer) POC Glucose (mg/dL) 124 H 243 H Random Glucose Calcium Phosphorus Magnesium Total Bilirubin AST ALT Alkaline Phosphatase Troponin I Total Protein Albumin Globulin Albumin/Globulin Ratio EKG/Cardiology Studies: Cardiology / EKG Studies 07/08/17 09:00 EKG [ELECTROCARDIOGRAM] DAILY Comment: Mode Of Transportation: Reason For Exam: eval NSTEMI Fingerstick Blood Sugar Results: 243 Critical Care Progress Note - Nutrition Nutrition: Nutrition Category Date Time Status Liquid Diet [DIET] Diets 07/08/17 Breakfast Active Assessment/Plan (1) Acute non-ST elevation myocardial infarction (NSTEMI) Current Visit: Yes Status: Acute Comment: Continue BBs, nitrates, statin and ACEi. AC, ASA and Plavix on Hold Cardiology evaluation appretiated (2) Acute upper GI bleeding Current Visit: Yes Status: Acute Comment: No evidance of active bleed at this time, H/H stable No GI intervention indicated as per GI given High risk for EGD/colonoscopy Continue Pantoprazole gtt @ 200 mls/hr IVPB (3) COPD (chronic obstructive pulmonary disease) Current Visit: No Status: Chronic (4) Chronic atrial fibrillation Current Visit: No Status: Chronic (5) Chronic systolic CHF (congestive heart failure) Current Visit: No Status: Chronic (6) DM2 (diabetes mellitus, type 2) Current Visit: No Status: Chronic Comment: (7) Ischemic dilated cardiomyopathy Current Visit: No Status: Chronic Priority: Medium Comment: continue with meds. As it is chronic in nature ,no need for evaluvation for AICD at this time as per cardiolgy. patient is transfered to service after discussing about disease management. (8) Persistent atrial fibrillation Current Visit: No Status: Chronic Priority: High
--- NOTE | 2017-07-08 13:37 | CP.PCM.PN ---
Subjective - Date & Time of Evaluation Date of Evaluation: 07/08/17 Time of Evaluation: 13:33 - Subjective Subjective: s/p nonqmi in setting of Gi bleed and anemia. Pt reports no further chest pain. Melena Noted. Hb improved with transfusion. Hemodynamically stable. Objective - Vital Signs/Intake and Output Vital Signs (last 24 hours): Temp Pulse Resp BP Pulse Ox 98.1 F 60 21 97/33 L 99 07/08/17 12:00 07/08/17 12:00 07/08/17 12:00 07/08/17 12:00 07/08/17 12:00 Intake and Output: 07/08/17 07/08/17 06:59 18:59 Output Total 1050 Balance -1050 - Medications Medications: Current Medications Atorvastatin Calcium (Lipitor) 40 mg PO DAILY [facility] Last Admin: 07/08/17 09:09 Dose: 40 mg Carvedilol (Coreg) 12.5 mg PO Q12 [facility] Last Admin: 07/08/17 09:08 Dose: 12.5 mg Isosorbide Mononitrate (Imdur) 60 mg PO DAILY [facility] Last Admin: 07/08/17 09:08 Dose: 60 mg Lisinopril (Zestril) 5 mg PO DAILY [facility] Last Admin: 07/08/17 09:09 Dose: 5 mg Morphine Sulfate (Morphine) 2 mg IVP Q4 PRN PRN Reason: Pain, Mild (1-3) Last Admin: 07/08/17 06:53 Dose: 2 mg Nitroglycerin (Nitrostat Sl Tab) 0.4 mg SL Q5M PRN PRN Reason: Pain, Mild (1-3) Last Admin: 07/08/17 04:45 Dose: 0.4 mg Nitroglycerin (Nitro-Dur 0.2 Mg/Hr Patch) 1 patch TD DAILY [facility] Last Admin: 07/08/17 09:08 Dose: 1 patch Pantoprazole Sodium (Protonix Inj) 40 mg IVP Q12H [facility] Last Admin: 07/08/17 09:09 Dose: 40 mg Temazepam (Restoril) 15 mg PO HS PRN PRN Reason: Insomnia Last Admin: 07/07/17 01:04 Dose: 15 mg - Labs Labs: 07/08/17 04:20 07/08/17 04:20 PT 12.9 Seconds (9.8-13.1) 07/05/17 13:17 INR 1.2 (0.9-1.2) 07/05/17 13:17 APTT 36.5 Seconds (25.6-37.1) D 07/05/17 13:17 - Head Exam Head Exam: NORMAL INSPECTION - Respiratory Exam Respiratory Exam: Clear to Ausculation Bilateral - Cardiovascular Exam Cardiovascular Exam: REGULAR RHYTHM - GI/Abdominal Exam GI & Abdominal Exam: Normal Bowel Sounds - Extremities Exam Extremities Exam: Normal Inspection Assessment and Plan - Assessment and Plan (Free Text) Plan: NonQ OH in setting of acute bleed No recurrent symptoms of chest pain Still with Melena, no active bleeding Would Continue to hold anticoagulation for now No GI procedure anticipated
[2017-07-08 19:23] LABS: HEMOGLOBIN 8.6 g/dL (12.0-18.0); MEAN CELL VOLUME 93.6 fl (80.0-94.0); MEAN CORPUSCULAR HEMOGLOBIN 31.7 pg (27.0-31.0); MEAN CORPUSCULAR HGB CONC 33.8 g/dL (33.0-37.0); RBC 2.71 Mil/uL (4.40-5.90); RED CELL DISTRIBUTION WIDTH 15.4 % (11.5-14.5); WHITE BLOOD COUNT 7.3 K/uL (4.8-10.8)
--- NOTE | 2017-07-08 21:43 | PN ---
DAILY PROGRESS NOTE DATE: 07/08/2017 SUBJECTIVE: The patient is seen today on 07/08/2017 in Intensive Care Unit. He still has some minimal rectal bleeding. PHYSICAL EXAMINATION: VITAL SIGNS: Blood pressure is 139/60, temperature 98.1, respiratory rate 20, and pulse 88. HEENT: Pale mucosa of the conjunctivae. Pupils equal and reactive to light. NECK: Supple. No JVD. No carotid bruit. No lymph node. No thyromegaly. CHEST AND LUNGS: Bilateral symmetrical expansion. Good air exchange. No rales. No rhonchi. CARDIOVASCULAR: PMI not localized. S1 and S2. No additional sounds. ABDOMEN: Normoactive bowel sounds. No tenderness. No organomegaly. No masses. CENTRAL NERVOUS SYSTEM: Alert, awake, and oriented x2. Moves all extremities equally. ASSESSMENT: Lower gastrointestinal bleeding, non-ST elevation myocardial infarction, anemia of acute blood loss, and history of congestive heart failure both systolic and diastolic. PLAN: Continue proton pump inhibitors and current medications. Follow Cardiology and Gastroenterology recommendations. Continue carvedilol and lisinopril. Raymond MD Alejandro
[2017-07-09] MEDS: Morphine 4 MG/ML VIAL IVP PRN ×2 (02:06→10:01)
[2017-07-09 05:40] LABS: HEMOGLOBIN 8.4 g/dL (12.0-18.0); MEAN CORPUSCULAR HEMOGLOBIN 31.6 pg (27.0-31.0); MEAN CORPUSCULAR HGB CONC 33.7 g/dL (33.0-37.0); RBC 2.66 Mil/uL (4.40-5.90); RED CELL DISTRIBUTION WIDTH 15.7 % (11.5-14.5); WHITE BLOOD COUNT 8.1 K/uL (4.8-10.8)
[2017-07-09 05:47] LABS: BLOOD UREA NITROGEN 11 mg/dl (9-20); CALCIUM 9.3 mg/dL (8.4-10.2); GFR AFRICAN-AMERICAN > 60; GFR NON-AFRICAN AMERICAN > 60
[2017-07-09] MEDS: Nitroglycerin 2% Ointment Foilpak UD TOP SCH ×3 (10:40→23:44)
[2017-07-09] MEDS ORDERED: Nitroglycerin 2% Ointment Foilpak UD TOP SCH (10:45)
[2017-07-09] MEDS ORDERED: Nitroglycerin 2% Ointment Foilpak UD TOP ONE (10:48)
--- NOTE | 2017-07-09 11:25 | CP.PCM.PN ---
Subjective - Date & Time of Evaluation Date of Evaluation: 07/09/17 Time of Evaluation: 11:21 - Subjective Subjective: Several episodes of chest pain relieved with NTG last nite. Chest pain in setting of Hb 8.4 from 9.0. Still reports melena in stool. Given 1/2 " NTP q 6 hrs Currently Cp free Objective - Vital Signs/Intake and Output Vital Signs (last 24 hours): Temp Pulse Resp BP Pulse Ox 97.8 F 66 15 131/51 L 100 07/09/17 04:00 07/09/17 06:00 07/09/17 06:00 07/09/17 06:00 07/08/17 16:00 - Medications Medications: Current Medications Atorvastatin Calcium (Lipitor) 40 mg PO DAILY [facility] Last Admin: 07/09/17 08:51 Dose: 40 mg Carvedilol (Coreg) 12.5 mg PO Q12 [facility] Last Admin: 07/08/17 20:01 Dose: 12.5 mg Isosorbide Mononitrate (Imdur) 60 mg PO DAILY [facility] Last Admin: 07/08/17 09:08 Dose: 60 mg Lisinopril (Zestril) 5 mg PO DAILY [facility] Last Admin: 07/08/17 09:09 Dose: 5 mg Morphine Sulfate (Morphine) 2 mg IVP Q4 PRN PRN Reason: Pain, Mild (1-3) Last Admin: 07/09/17 10:01 Dose: 2 mg Nitroglycerin (Nitrostat Sl Tab) 0.4 mg SL Q5M PRN PRN Reason: Pain, Mild (1-3) Last Admin: 07/09/17 08:51 Dose: 0.4 mg Nitroglycerin (Nitro-Dur 0.2 Mg/Hr Patch) 1 patch TD DAILY [facility] Last Admin: 07/08/17 09:08 Dose: 1 patch Nitroglycerin (Nitro-Bid 2% Oint) 1 ea TOP Q6 [facility] Pantoprazole Sodium (Protonix Inj) 40 mg IVP Q12H [facility] Last Admin: 07/09/17 08:51 Dose: 40 mg Temazepam (Restoril) 15 mg PO HS PRN PRN Reason: Insomnia Last Admin: 07/09/17 02:07 Dose: 15 mg - Labs Labs: 07/09/17 04:35 07/09/17 04:35 PT 12.9 Seconds (9.8-13.1) 07/05/17 13:17 INR 1.2 (0.9-1.2) 07/05/17 13:17 APTT 36.5 Seconds (25.6-37.1) D 07/05/17 13:17 - Constitutional Appears: Well - Respiratory Exam Respiratory Exam: Clear to Ausculation Bilateral - Cardiovascular Exam Cardiovascular Exam: REGULAR RHYTHM - GI/Abdominal Exam GI & Abdominal Exam: Normal Bowel Sounds - Extremities Exam Extremities Exam: Normal Inspection Assessment and Plan - Assessment and Plan (Free Text) Plan: #1 NTG 1/2 q 6 hrs #2 Transfuse 1U PRBC with Lasix IV 40mg #3 Goal HB 10mg/dl with ongoing cp and nonqmi #4 Stablize acute bleeding / transfuse as needed #5 Pt NPO after midnite in event refractory chest pain/ for cardiac cath discussed with interventionalist Dr. Espinoza #6 Repeat CBC after transfusion
--- NOTE | 2017-07-09 11:48 | CARD ---
APPROVED REPORT EKG Measurement Heart [id number] ND [id number] <Conclusion> Sinus rhythm with premature atrial complexes Right bundle branch block Left anterior fascicular block Bifascicular block Abnormal ECG
[2017-07-09 18:35] LABS: HEMOGLOBIN 9.2 g/dL (12.0-18.0); MEAN CELL VOLUME 92.6 fl (80.0-94.0); MEAN CORPUSCULAR HEMOGLOBIN 31.4 pg (27.0-31.0); MEAN CORPUSCULAR HGB CONC 33.9 g/dL (33.0-37.0); RBC 2.92 Mil/uL (4.40-5.90); RED CELL DISTRIBUTION WIDTH 15.6 % (11.5-14.5); WHITE BLOOD COUNT 6.7 K/uL (4.8-10.8)
--- NOTE | 2017-07-10 03:33 | PN ---
DATE: 07/09/2017 SUBJECTIVE: The patient is seen today, 07/09/2017. He was complaining of chest pain. PHYSICAL EXAMINATION: VITAL SIGNS: Blood pressure 117/53, temperature 97.7, respiratory rate 19 and pulse 66. HEENT: Pale mucosa of the conjunctivae. NECK: Supple. No JVD. No carotid bruit. No lymph node. No thyromegaly. CHEST/LUNGS: Bilateral symmetrical expansion. Good air exchange. No rales, no rhonchi. CARDIOVASCULAR: System PMI not localized, S1 and S2. No additional sounds. ABDOMEN: Normoactive bowel sounds. No tenderness. No organomegaly. No masses. EXTREMITIES: No cyanosis, no clubbing, no edema. [employer]: Alert, awake, oriented x2. Moves all extremities equally. ASSESSMENT: 1. Anemia of acute blood loss. 2. Lower gastrointestinal bleeding. 3. [id number] myocardial infarction. PLAN: The patient so far is not accepting the risk of having the colonoscopy done. We will continue the proton pump inhibitor, transfuse 2 units of packed RBCs. Follow cardiology recommendations. Inderjit Allen MD
[2017-07-10] MEDS: Nitroglycerin 2% Ointment Foilpak UD TOP SCH ×3 (05:32→21:30)
--- NOTE | 2017-07-10 06:24 | PN ---
CRITICAL CARE PROGRESS NOTE DATE: 07/09/2017 LOCATION: The patient is in ICU, bed 430. TIME SPENT: 35 minutes. SUBJECTIVE: The patient is seen and evaluated at the bedside. Past medical, surgical, family, and social history reviewed. An 89-year-old male admitted with lower GI bleeding, complaining of substernal pain, relieved with nitroglycerin, still with ongoing melanotic stool, status post transfusion packed red blood cells. Overnight, had 3 to 4 bowel movements. Alert, awake, ambulating to the bathroom, complaining of abdominal discomfort and also retrosternal pain, seen by Cardiology consult, added nitroglycerin patch every 6 hours, and pending for cardiac catheterization in the morning. PHYSICAL EXAMINATION: VITAL SIGNS: Temperature 97.5, heart rate 69 and regular, blood pressure 129/54, mean arterial pressure 79, and respiratory rate 19. Intake and output 350 and 1225, negative balance 875. Weight 180 pounds. HEAD, EYES, EARS, NOSE AND THROAT: Pupils are reactive. Conjunctivae pale. Sclerae white. Trachea is central. NECK: Supple. CHEST: Bilateral breath sounds clear to auscultation. HEART: Rhythm regular. S1 and S2 normal intensity. No S3, S4, or gallop. No audible murmur. ABDOMEN: Bowel sounds present, soft, and nontender. EXTREMITIES: Lower extremity, trace edema. NEUROLOGIC: [place] Coma scale 15. Cranial nerves intact. Speech normal. Motor function grossly intact. No sensory impairment. PSYCHIATRIC EVALUATION: Pleasant and positive. CURRENT MEDICATIONS: Lipitor 40 mg p.o. daily, Coreg 12.5 mg every 12 hours, Imdur 60 mg p.o. daily, Zestril 5 mg p.o. daily, ,morphine sulfate 2 mg IV push every 4 hours p.r.n., nitroglycerin 0.4 mg sublingual every 5 minutes for [id number] pain, Nitro-Dur 0.2 mg per hour patch 1 patch daily, Protonix 40 IV every 12 hours, and Vistaril 50 mg p.o. at bedtime. LABORATORY DATA: WBC 8.1, hemoglobin 8.4, hematocrit 25, and platelet count 227. PT 12.9, INR 1.2, and PTT 36.5. SMA-7; sodium 140, potassium 4.5, chloride 106, CO2 of 24, blood urea nitrogen 11, creatinine 1, glucose 118, calcium 9.3, and troponin 1.5400. Stool occult blood positive. Microbiology; nasal smear MRSA negative. EKG on 07/08/2017 sinus rhythm with premature atrial complexes, right bundle-branch block, and left anterior fascicular block. IMPRESSION AND PLAN: 1. Neurologic. Alert, awake, and oriented to name, place and time. 2. Pulmonary. No acute issues. 3. Cardiac. Acute non-ST myocardial infarction with ongoing chest pain, relieved with nitroglycerin. Seen by Cardiology consult, considering for cardiac catheterization in the morning to assess the coronary anatomy. Aspirin and Plavix on hold secondary to ongoing lower gastrointestinal bleeding, on Zestril 5 mg p.o. daily, morphine sulfate 2 mg IV every 4 hours p.r.n. for pain, Nitrostat 0.5 mg sublingual every 4 hours p.r.n. for pain, and Nitro-Bid 2% ointment 1 application topically every 6 hours. 4. Gastritis and gastroesophageal reflux, on Protonix 40 mg IV every 12 hours. Gastrointestinal; ongoing lower gastrointestinal bleeding, seen by GI consult. Colonoscopy pending. Pending to clear by Cardiology. High risk for anesthesia and for any surgical procedure. Narinder Mckeon MD
[2017-07-10] MEDS: Nitroglycerin 0.2 mg/hr Top Patch TD SCH (08:46)
--- NOTE | 2017-07-10 11:51 | CP.PCM.PN ---
Subjective - Date & Time of Evaluation Date of Evaluation: 07/10/17 Time of Evaluation: 11:50 - Subjective Subjective: no cp today, + melena stool Objective - Vital Signs/Intake and Output Vital Signs (last 24 hours): Temp Pulse Resp BP Pulse Ox 98.3 F 69 14 127/50 L 90 L 07/10/17 08:00 07/10/17 08:46 07/10/17 08:00 07/10/17 11:27 07/10/17 08:00 Intake and Output: 07/10/17 07/10/17 06:59 18:59 Intake Total 120 Balance 120 - Medications Medications: Current Medications Atorvastatin Calcium (Lipitor) 40 mg PO DAILY [facility] Last Admin: 07/10/17 08:45 Dose: 40 mg Carvedilol (Coreg) 12.5 mg PO Q12 [facility] Last Admin: 07/10/17 08:45 Dose: 12.5 mg Isosorbide Mononitrate (Imdur) 60 mg PO DAILY [facility] Last Admin: 07/10/17 08:45 Dose: 60 mg Lisinopril (Zestril) 5 mg PO DAILY [facility] Last Admin: 07/10/17 08:46 Dose: 5 mg Morphine Sulfate (Morphine) 2 mg IVP Q4 PRN PRN Reason: Pain, Mild (1-3) Last Admin: 07/09/17 10:01 Dose: 2 mg Nitroglycerin (Nitrostat Sl Tab) 0.4 mg SL Q5M PRN PRN Reason: Pain, Mild (1-3) Last Admin: 07/09/17 08:51 Dose: 0.4 mg Nitroglycerin (Nitro-Dur 0.2 Mg/Hr Patch) 1 patch TD DAILY [facility] Last Admin: 07/10/17 08:46 Dose: 1 patch Nitroglycerin (Nitro-Bid 2% Oint) 1 ea TOP Q6 [facility] Last Admin: 07/10/17 05:32 Dose: 1 ea Pantoprazole Sodium (Protonix Inj) 40 mg IVP Q12H [facility] Last Admin: 07/10/17 08:46 Dose: 40 mg - Labs Labs: 07/09/17 18:27 07/09/17 04:35 PT 12.9 Seconds (9.8-13.1) 07/05/17 13:17 INR 1.2 (0.9-1.2) 07/05/17 13:17 APTT 36.5 Seconds (25.6-37.1) D 07/05/17 13:17 - Respiratory Exam Respiratory Exam: Clear to Ausculation Bilateral - Cardiovascular Exam Cardiovascular Exam: REGULAR RHYTHM - GI/Abdominal Exam GI & Abdominal Exam: Normal Bowel Sounds - Extremities Exam Extremities Exam: Normal Inspection Assessment and Plan - Assessment and Plan (Free Text) Plan: #1 Transfuse 1 U PRBC with 40mg iv lasix #2 Transfer 4 n #3 Regular Diet
[2017-07-10] MEDS: Pantoprazole 40 mg EC Tab PO SCH (17:29)
[2017-07-10 19:17] LABS: HEMOGLOBIN 10.6 g/dL (12.0-18.0); MEAN CELL VOLUME 90.8 fl (80.0-94.0); MEAN CORPUSCULAR HEMOGLOBIN 30.9 pg (27.0-31.0); RBC 3.42 Mil/uL (4.40-5.90); RED CELL DISTRIBUTION WIDTH 15.9 % (11.5-14.5); WHITE BLOOD COUNT 7.9 K/uL (4.8-10.8)
--- NOTE | 2017-07-10 20:19 | PN ---
DAILY PROGRESS NOTE DATE: 07/10/2017 SUBJECTIVE: The patient is seen today 07/10/2017. He still has some minimal rectal bleeding. PHYSICAL EXAMINATION VITAL SIGNS: Blood pressure 116/84, temperature 7.6, respiratory rate 16 and pulse 66. HEENT: Pupils equal, reactive to light. Slightly pale mucosa of the conjunctivae. NECK: Supple. No JVD. No carotid bruit. No lymph node. No thyromegaly. CHEST AND LUNGS: Bilateral expansion. Good air exchange. No rales, no rhonchi. CARDIOVASCULAR: PMI not localized. S1 and S2. No additional sounds. ABDOMEN: Normoactive bowel sounds. No tenderness. No organomegaly. No masses. EXTREMITIES: No cyanosis, no clubbing and no edema. PODIATRIC TECHNICIAN: Alert, awake and oriented x2. No neurological deficit could be appreciated. ASSESSMENT: 1. Lower gastrointestinal bleeding. 2. Hypertension. 3. Anemia of acute blood loss. 4. [id number] myocardial infarction. PLAN Continue current medications and management. Follow Cardiology and GI recommendations. Continue proton pump inhibitor. Transfer to telemetry floor out of Intensive Care Unit as the patient is hemodynamically stable. Inderjit Allen MD
[2017-07-11] MEDS: Nitroglycerin 2% Ointment Foilpak UD TOP SCH ×5 (05:09→22:17)
[2017-07-11] MEDS: Pantoprazole 40 mg EC Tab PO SCH ×2 (08:55→16:22)
[2017-07-11] MEDS: Nitroglycerin 0.2 mg/hr Top Patch TD SCH (08:56)
--- NOTE | 2017-07-11 11:54 | CP.PCM.PN ---
Subjective - Date & Time of Evaluation Date of Evaluation: 07/11/17 Time of Evaluation: 11:53 - Subjective Subjective: no cp , no gi bleeding, Hb stable, no sob Objective - Vital Signs/Intake and Output Vital Signs (last 24 hours): Temp Pulse Resp BP Pulse Ox 98.2 F 76 18 97/57 L 97 07/11/17 11:49 07/11/17 11:49 07/11/17 11:49 07/11/17 11:49 07/11/17 11:49 - Medications Medications: Current Medications Atorvastatin Calcium (Lipitor) 40 mg PO DAILY [facility] Last Admin: 07/11/17 08:55 Dose: 40 mg Carvedilol (Coreg) 12.5 mg PO Q12 [facility] Last Admin: 07/11/17 08:55 Dose: 12.5 mg Isosorbide Mononitrate (Imdur) 60 mg PO DAILY [facility] Last Admin: 07/11/17 08:55 Dose: 60 mg Lisinopril (Zestril) 5 mg PO DAILY [facility] Last Admin: 07/11/17 08:56 Dose: 5 mg Morphine Sulfate (Morphine) 2 mg IVP Q4 PRN PRN Reason: Pain, Mild (1-3) Last Admin: 07/09/17 10:01 Dose: 2 mg Nitroglycerin (Nitrostat Sl Tab) 0.4 mg SL Q5M PRN PRN Reason: Pain, Mild (1-3) Last Admin: 07/09/17 08:51 Dose: 0.4 mg Nitroglycerin (Nitro-Dur 0.2 Mg/Hr Patch) 1 patch TD DAILY [facility] Last Admin: 07/11/17 08:56 Dose: 1 patch Nitroglycerin (Nitro-Bid 2% Oint) 1 ea TOP Q6 [facility] Last Admin: 07/11/17 05:09 Dose: 1 ea Pantoprazole Sodium (Protonix Ec Tab) 40 mg PO BID [facility] Last Admin: 07/11/17 08:55 Dose: 40 mg - Labs Labs: 07/10/17 17:21 07/09/17 04:35 PT 12.9 Seconds (9.8-13.1) 07/05/17 13:17 INR 1.2 (0.9-1.2) 07/05/17 13:17 APTT 36.5 Seconds (25.6-37.1) D 07/05/17 13:17 - Head Exam Head Exam: NORMAL INSPECTION - Respiratory Exam Respiratory Exam: Clear to Ausculation Bilateral - Cardiovascular Exam Cardiovascular Exam: REGULAR RHYTHM - Extremities Exam Extremities Exam: Normal Inspection Assessment and Plan - Assessment and Plan (Free Text) Plan: #1 NPO after Midnite #2 Cardiac cath for tomorrow , nonqmi , known CAD ischemic cardiomypathy interventionalist #3 Continue present medications
[2017-07-11 20:47] LABS: HEMOGLOBIN 10.3 g/dL (12.0-18.0); MEAN CELL VOLUME 90.1 fl (80.0-94.0); MEAN CORPUSCULAR HEMOGLOBIN 30.9 pg (27.0-31.0); MEAN CORPUSCULAR HGB CONC 34.3 g/dL (33.0-37.0); RBC 3.34 Mil/uL (4.40-5.90); RED CELL DISTRIBUTION WIDTH 15.7 % (11.5-14.5); WHITE BLOOD COUNT 8.8 K/uL (4.8-10.8)
[2017-07-11 20:53] LABS: PARTIAL THROMBOPLASTIN TIME 32.2 Seconds (25.6-37.1); PROTHROMBIN TIME 11.5 Seconds (9.8-13.1)
--- NOTE | 2017-07-11 23:15 | PN ---
DAILY PROGRESS NOTE DATE: 07/11/2017 SUBJECTIVE: The patient is seen today 07/11/2017. He is not in any cardiopulmonary distress and today there is no evidence of any rectal bleeding. OBJECTIVE: VITAL SIGNS: Blood pressure 136/61, temperature 97.8, respiratory rate 20, and pulse 66. HEENT: Pupils equal and reactive to light. Normal-appearing mucosa of the conjunctivae, oropharynx, and nasal membrane mucosa. NECK: Supple. No JVD. No carotid bruit. No lymph node. No thyromegaly. CHEST AND LUNGS: Bilateral symmetrical expansion. Good air exchange. No rales. No rhonchi. CARDIOVASCULAR: PMI not localized, S1 and S2. No additional sounds. ABDOMEN: Normoactive bowel sounds. No tenderness. No organomegaly. No masses. EXTREMITIES: No cyanosis. No clubbing. No edema. CENTRAL NERVOUS SYSTEM: Alert, awake, and oriented x2. No neurological deficit could be appreciated. ASSESSMENT: Lower gastrointestinal bleeding, hypertension, chronic diastolic congestive heart failure, and non-ST elevation myocardial infarction. PLAN: Discussed with Dr. Davis and Dr. Espinoza. Recommendation that the patient will undergo cardiac catheterization tomorrow by Dr. Patterson before any clearance for further GI workup. Continue proton pump inhibitors. Inderjit Allen MD
[2017-07-12] MEDS: Nitroglycerin 2% Ointment Foilpak UD TOP SCH ×4 (05:10→21:31)
[2017-07-12] MEDS: Pantoprazole 40 mg EC Tab PO SCH ×2 (10:40→17:11)
[2017-07-12] MEDS: Nitroglycerin 0.2 mg/hr Top Patch TD SCH (10:40)
[2017-07-13] MEDS: Nitroglycerin 2% Ointment Foilpak UD TOP SCH ×4 (05:00→22:23)
[2017-07-13] MEDS: Nitroglycerin 0.2 mg/hr Top Patch TD SCH (09:49)
[2017-07-13] MEDS: Pantoprazole 40 mg EC Tab PO SCH ×2 (09:50→17:30)
--- NOTE | 2017-07-13 21:09 | PN ---
DAILY PROGRESS NOTE DATE: 07/13/2017 SUBJECTIVE: The patient is seen today 07/13/2017. He is status post cardiac catheterization yesterday. OBJECTIVE: VITAL SIGNS: Blood pressure is 114/52, temperature 97.6, respiratory rate 18, and pulse 73. HEENT: Pupils equal and reactive to light. Normal-appearing mucosa of the conjunctivae, oropharynx, and nasal membrane mucosa. NECK: Supple. No JVD. No carotid bruit. No lymph node. No thyromegaly. CHEST AND LUNGS: Bilateral symmetrical expansion. Good air exchange. No rales. No rhonchi. CARDIOVASCULAR: PMI not localized, S1 and S2. No additional sounds. ABDOMEN: Normoactive bowel sounds. No tenderness. No organomegaly. No masses. EXTREMITIES: No cyanosis. No clubbing. No edema. CENTRAL NERVOUS SYSTEM: Alert, awake, and oriented x2. No neurological deficit could be appreciated. ASSESSMENT: Lower gastrointestinal bleeding, anemia of acute blood loss, status post 4 units of packed red blood cells transfusion, coronary artery disease, and congestive heart failure. PLAN: Continue current treatment and medications and follow GI recommendations. Inderjit Allen MD
[2017-07-14] MEDS: Nitroglycerin 2% Ointment Foilpak UD TOP SCH ×2 (04:54→10:11)
[2017-07-14 05:02] VITALS: RESP 18
--- NOTE | 2017-07-14 07:51 | CP.PCM.PN ---
Subjective - Date & Time of Evaluation Date of Evaluation: 07/14/17 Time of Evaluation: 07:51 Objective - Vital Signs/Intake and Output Vital Signs (last 24 hours): Temp Pulse Resp BP Pulse Ox 97.3 F L 66 18 149/64 97 07/14/17 05:00 07/14/17 05:00 07/14/17 05:00 07/14/17 05:00 07/14/17 05:00 - Medications Medications: Current Medications Atorvastatin Calcium (Lipitor) 40 mg PO DAILY [facility] Last Admin: 07/13/17 09:50 Dose: 40 mg Carvedilol (Coreg) 12.5 mg PO Q12 [facility] Last Admin: 07/13/17 22:00 Dose: 12.5 mg Isosorbide Mononitrate (Imdur) 60 mg PO DAILY [facility] Last Admin: 07/13/17 09:50 Dose: 60 mg Lisinopril (Zestril) 5 mg PO DAILY [facility] Last Admin: 07/13/17 09:50 Dose: 5 mg Morphine Sulfate (Morphine) 2 mg IVP Q4 PRN PRN Reason: Pain, Mild (1-3) Last Admin: 07/09/17 10:01 Dose: 2 mg Nitroglycerin (Nitrostat Sl Tab) 0.4 mg SL Q5M PRN PRN Reason: Pain, Mild (1-3) Last Admin: 07/09/17 08:51 Dose: 0.4 mg Nitroglycerin (Nitro-Dur 0.2 Mg/Hr Patch) 1 patch TD DAILY [facility] Last Admin: 07/13/17 09:49 Dose: 1 patch Nitroglycerin (Nitro-Bid 2% Oint) 1 ea TOP Q6 [facility] Last Admin: 07/14/17 04:54 Dose: 1 ea Pantoprazole Sodium (Protonix Ec Tab) 40 mg PO BID [facility] Last Admin: 07/13/17 17:30 Dose: 40 mg - Labs Labs: 07/11/17 20:30 07/09/17 04:35 PT 11.5 Seconds (9.8-13.1) 07/11/17 20:30 INR 1.0 (0.9-1.2) 07/11/17 20:30 APTT 32.2 Seconds (25.6-37.1) 07/11/17 20:30
[2017-07-14] MEDS: Nitroglycerin 0.2 mg/hr Top Patch TD SCH (10:09)
[2017-07-14] MEDS: Pantoprazole 40 mg EC Tab PO SCH (10:10)
[2017-07-14 10:49] LABS: HEMOGLOBIN 10.5 g/dL (12.0-18.0); MEAN CORPUSCULAR HEMOGLOBIN 30.7 pg (27.0-31.0); MEAN CORPUSCULAR HGB CONC 33.7 g/dL (33.0-37.0); RBC 3.41 Mil/uL (4.40-5.90); RED CELL DISTRIBUTION WIDTH 15.6 % (11.5-14.5); WHITE BLOOD COUNT 6.6 K/uL (4.8-10.8)
[2017-07-14 12:18] VITALS: BP 140/66; PULSE 67; TEMP 97.8; O2SAT 98
--- NOTE | 2017-07-14 16:21 | CP.PCM.DIS ---
Provider - Provider Date of Admission: 07/04/17 15:19 Attending physician: Inderjit Allen MD Time Spent in preparation of Discharge (in minutes): 30 Diagnosis - Discharge Diagnosis (1) Acute chest pain Status: Acute (2) Acute coronary syndrome Status: Acute (3) Acute non-ST elevation myocardial infarction (NSTEMI) Status: Acute (4) Acute upper GI bleeding Status: Acute Hospital Course - Lab Results Lab Results: Micro Results 07/04/17 08:22 Naris MRSA Culture (Admit) - Final MRSA NOT DETECTED Most Recent Lab Values WBC 6.6 K/uL (4.8-10.8) 07/14/17 09:32 RBC 3.41 Mil/uL (4.40-5.90) L 07/14/17 09:32 Hgb 10.5 g/dL (12.0-18.0) L 07/14/17 09:32 Hct 31.0 % (35.0-51.0) L 07/14/17 09:32 MCV 91.0 fl (80.0-94.0) 07/14/17 09:32 MCH 30.7 pg (27.0-31.0) 07/14/17 09:32 MCHC 33.7 g/dL (33.0-37.0) 07/14/17 09:32 RDW 15.6 % (11.5-14.5) H 07/14/17 09:32 Plt Count 218 K/uL (130-400) 07/14/17 09:32 MPV 8.5 fl (7.2-11.7) 07/08/17 04:20 Neut % (Auto) 66.2 % (50.0-75.0) 07/08/17 04:20 Lymph % (Auto) 21.4 % (20.0-40.0) 07/08/17 04:20 [place] % (Auto) 8.7 % (0.0-10.0) 07/08/17 04:20 Eos % (Auto) 3.0 % (0.0-4.0) 07/08/17 04:20 Baso % (Auto) 0.7 % (0.0-2.0) 07/08/17 04:20 Neut # (Auto) 4.6 K/uL (1.8-7.0) 07/08/17 04:20 Lymph # (Auto) 1.5 K/uL (1.0-4.3) 07/08/17 04:20 [place] # (Auto) 0.6 K/uL (0.0-0.8) 07/08/17 04:20 Eos # (Auto) 0.2 K/uL (0.0-0.7) 07/08/17 04:20 Baso # (Auto) 0.0 K/uL (0.0-0.2) 07/08/17 04:20 PT 11.5 Seconds (9.8-13.1) 07/11/17 20:30 INR 1.0 (0.9-1.2) 07/11/17 20:30 APTT 32.2 Seconds (25.6-37.1) 07/11/17 20:30 Sodium 140 mmol/l (132-148) 07/09/17 04:35 Potassium 4.7 MMOL/L (3.6-5.0) 07/09/17 04:35 Chloride 106 mmol/L (98-107) 07/09/17 04:35 Carbon Dioxide 24 mmol/L (22-30) 07/09/17 04:35 Anion Gap 15 (10-20) 07/09/17 04:35 BUN 11 mg/dl (9-20) 07/09/17 04:35 Creatinine 1.0 mg/dl (0.8-1.5) 07/09/17 04:35 Est GFR ( Amer) > 60 07/09/17 04:35 Est GFR (Non-Af Amer) > 60 07/09/17 04:35 POC Glucose (mg/dL) 185 mg/dL (65-110) H 07/14/17 10:55 Random Glucose 115 mg/dL (75-110) H 07/09/17 04:35 Calcium 9.3 mg/dL (8.4-10.2) 07/09/17 04:35 Phosphorus 2.8 mg/dl (2.5-4.5) 07/08/17 04:20 Magnesium 2.0 MG/DL (1.6-2.3) 07/08/17 04:20 Total Bilirubin 0.5 mg/dl (0.2-1.3) 07/08/17 04:20 AST 33 U/L (17-59) 07/08/17 04:20 ALT 29 U/L (21-72) 07/08/17 04:20 Alkaline Phosphatase 75 U/L (38-126) 07/08/17 04:20 Troponin I 1.5400 ng/mL (0.00-0.120) H* 07/09/17 02:15 NT-Pro-B Natriuret Pep 1860 pg/ml (0-900) H 07/04/17 14:07 Total Protein 5.8 G/DL (6.3-8.2) L 07/08/17 04:20 Albumin 2.9 g/dL (3.5-5.0) L 07/08/17 04:20 Globulin 2.9 gm/dL (2.2-3.9) 07/08/17 04:20 Albumin/Globulin Ratio 1.0 (1.0-2.1) 07/08/17 04:20 Stool Occult Blood Positive (NEGATIVE) H 07/04/17 15:50 Blood Type O POSITIVE 07/08/17 19:15 Antibody Screen Negative 07/08/17 19:15 Crossmatch See Detail 07/08/17 19:15 BBK History Checked Patient has bt 07/08/17 19:15 - Hospital Course Hospital Course: 89 year old male PMH afib, isch dilated CMP, COPD, DM, chronic systolic CHF admitted for NSTEMI and upper GIB. Patient seen and evaluated by GI and Cardiology. Pt GIB resolved, s/p cardiac cath by Dr. Espinoza Interventional Cardiology. Patient to go for outpatient colonoscopy per GI. HD stable, NAD. stable for discharge home with follow up PCP and GI. Discharge Exam - Head Exam Additional comments: Constitutional- cooperative, awake, alert. Head- NCAT, PERRL Eye- PERRL, normal accommodation ENT- normal exam, MMM. Neck- normal inspection, supple, no JVD Respiratory- CTAB, no wheezes rales rhonchi Cardiovascular- RRR, +S1, +S2 no MRG GI/Abdominal- normal bowel sounds, soft Skin- warm, dry Extremities Exam- normal capillary refill, normal inspection Neurological Exam- alert, oriented Psych- normal mood, normal affect Discharge Plan - Discharge Medications Prescriptions: Nitroglycerin [Nitrostat] 0.4 mg SL Q5MIN PRN #10 tab.subl PRN Reason: chest pain Allopurinol [Zyloprim] 300 mg PO DAILY #30 tab Aspirin [Ecotrin] 81 mg PO DAILY #30 tabec Atorvastatin [Lipitor] 40 mg PO HS #30 tab Carvedilol [Coreg] 12.5 mg PO Q12 #60 tab Dutasteride [Avodart] 0.5 mg PO DAILY #30 capsule Furosemide [Lasix] 20 mg PO DAILY #30 tablet Isosorbide Mononitrate [Imdur] 60 mg PO DAILY #30 tab Linagliptin [Tradjenta] 5 mg PO DAILY #30 tablet Lisinopril [Zestril] 5 mg PO DAILY #30 tab Nitroglycerin 0.2 mg/hr [Nitro-Dur 0.2 mg/hr Patch] 1 patch TD DAILY #30 patch Omeprazole 40 mg PO DAILY #30 capsule. Ranolazine [Ranexa] 500 mg PO DAILY #30 ter - Follow Up Plan Condition: FAIR Disposition: HOME/ ROUTINE Instructions: Heart Failure, Adult (DC), Heart Attack (DC), Gastrointestinal Bleeding (DC) Referrals: Won Vela MD [Medical Doctor] - Inderjit Allen MD [Staff Provider] - Jonatan Davis MD [Staff Provider] -
== END 2017-07-14 12:45 | disposition home or self-care (01) | DRG 281 ==
LOC: H.ER 13:12 → H.ERHOLD 15:19 → H.ICU/CCU 17:15 → H.TEL 07-10 18:14
PROVIDERS: ADMIT Internal Medicine; ATTEND Internal Medicine
PROC: 30233K1 Transfusion of Nonautologous Frozen Plasma into Peripheral Vein, Percutaneous Approach (ICD-10-PCS; principal; 2017-07-04)
PROC: 30233N1 Transfusion of Nonautologous Red Blood Cells into Peripheral Vein, Percutaneous Approach (ICD-10-PCS; 2017-07-05)
PROC: 4A023N8 Measurement of Cardiac Sampling and Pressure, Bilateral, Percutaneous Approach (ICD-10-PCS; 2017-07-12)
PROC: B216YZZ Fluoroscopy of Right and Left Heart using Other Contrast (ICD-10-PCS; 2017-07-12)
DX: I21.4 Non-ST elevation (NSTEMI) myocardial infarction (principal); K92.1 Melena; D62 Acute posthemorrhagic anemia; I50.42 Chronic combined systolic (congestive) and diastolic (congestive) heart failure; I42.0 Dilated cardiomyopathy; I48.1 Persistent atrial fibrillation; D68.9 Coagulation defect, unspecified; I25.5 Ischemic cardiomyopathy; I48.0 Paroxysmal atrial fibrillation; I48.2 Chronic atrial fibrillation; I11.0 Hypertensive heart disease with heart failure; I25.118 Atherosclerotic heart disease of native coronary artery with other forms of angina pectoris; K21.9 Gastro-esophageal reflux disease without esophagitis; K29.70 Gastritis, unspecified, without bleeding; E03.9 Hypothyroidism, unspecified; E11.9 Type 2 diabetes mellitus without complications; E78.5 Hyperlipidemia, unspecified; E78.00 Pure hypercholesterolemia, unspecified; F03.90 Unspecified dementia, unspecified severity, without behavioral disturbance, psychotic disturbance, mood disturbance, and anxiety; E86.0 Dehydration; J44.9 Chronic obstructive pulmonary disease, unspecified; N40.0 Benign prostatic hyperplasia without lower urinary tract symptoms; H91.90 Unspecified hearing loss, unspecified ear; M19.90 Unspecified osteoarthritis, unspecified site; K57.90 Diverticulosis of intestine, part unspecified, without perforation or abscess without bleeding; M10.9 Gout, unspecified; F17.290 Nicotine dependence, other tobacco product, uncomplicated; Z98.61 Coronary angioplasty status; Z95.1 Presence of aortocoronary bypass graft; Z86.711 Personal history of pulmonary embolism; Z87.01 Personal history of pneumonia (recurrent); Z79.82 Long term (current) use of aspirin; Z79.84 Long term (current) use of oral hypoglycemic drugs; Z90.49 Acquired absence of other specified parts of digestive tract